=== PATIENT | female | born 1940 | race American Indian/Alaskan Native ===

== ENCOUNTER 2016-09-01 15:38 | Emergency (ER) | payer OTHER ==
--- NOTE | 2016-09-01 17:06 | Cat Scan Report ---
HEAD CT WITHOUT CONTRAST INDICATION: Neurologic deficits less than 6 hours or symptoms present upon awakening. 98N. COMPARISON: None similar at this institution. FINDINGS: Noncontrast head CT demonstrates age-appropriate ventricles and sulci, though with slightly asymmetric left frontal extra-axial CSF space prominence measuring up to 4 mm, axial image 25, series 2. Moderate periventricular white matter hypodensities. No acute or recent infarct, hemorrhage, mass effect or midline shift. 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 Right periorbital soft tissue swelling may be incompletely imaged, more so laterally. Otherwise normal imaged eye globes. Right more than left mild ethmoid sinusitis. Clear remainder imaged paranasal sinuses and mastoid air cells. Atherosclerotic internal carotid artery calcifications. Radiopaque maxillary dentures. Intact calvarium. Normal scalp soft tissues. CONCLUSION: 1. Right periorbital soft tissue swelling suspected without acute intracranial CT abnormality. 2. Age-appropriate atrophy, microvascular changes and minimal left frontal chronic subdural hygroma, as described. MRI is more sensitive for detection of acute infarct and may be useful for further evaluation in the setting of a focal neurologic deficit. I phoned the above results to Dr. Banuelos in the ER, 4:50 PM, 09/01/2016. Thank you for the opportunity to participate in this patient's care.
[2016-09-01 18:29] LABS: INR 2.53 (0.87-1.13)
[2016-09-01 18:30] LABS: Partial Thromboplastin Time 38.3 Sec. (24.2-36.6)
[2016-09-01 18:39] LABS: Anion Gap 18 mmol/L; BUN/Creatinine Ratio 17.77; Blood Urea Nitrogen 32 mg/dL (7-17); Calcium 8.8 mg/dL (8.4-10.2); Carbon Dioxide 27 mmol/L (22-30); Chloride 98.3 mmol/L (98-107); Glucose 98 mg/dL (65-100); Potassium 3.7 mmol/L (3.6-5.0); Sodium 140 mmol/L (137-145)
[2016-09-01 18:40] LABS: Basophils % (Auto) 0.8 % (0.0-1.8); Eosinophils % (Auto) 5.3 % (0.0-4.3); Hematocrit 35.9 % (30.3-42.9); Hemoglobin 11.4 gm/dl (10.1-14.3); Mean Corpuscular HGB Conc 32 % (30-34); Mean Corpuscular Hemoglobin 27 pg (28-32); Mean Corpuscular Volume 84 fl (79-97); Platelet Count 196 K/mm3 (140-440); Red Blood Count 4.26 M/mm3 (3.65-5.03); Red Cell Distribution Width 15.2 % (13.2-15.2); White Blood Count 4.1 K/mm3 (4.5-11.0)
--- NOTE | 2016-09-01 18:40 | Emergency Department Report ---
ED Fall HPI - General Chief Complaint: Fall Stated Complaint: RT EYE SWOLLEN Time Seen by Provider: 09/01/16 17:39 Source: patient Mode of arrival: Ambulatory Limitations: No Limitations - History of Present Illness Initial Comments: 76-year-old female with a past medical history of rheumatoid arthritis, GERD, hypertension, and currently on Coumadin for unknown reason presents to the hospital complains of injury to right infraorbital region after falling out of bed 2 nights ago. Patient states she had a bad dream, struck the right infraorbital area on the edge of her nightstand. Patient has had pain and swelling since. No complaints of eye pain, eye discharge, blurred vision, headache, or LOC. Patient admits to Coumadin use but does not know why she takes the medication and states she takes it to keep her blood thin. Pain is rated 4/10 in intensity, constant, worse with palpation - Related Data Previous Rx's Medication Instructions Recorded Last Taken Type NIFEdipine [Nifedipine ER] 60 mg PO DAILY #30 tab.er.24 09/01/16 Unknown Rx Allergies Allergy/AdvReac Type Severity Reaction Status Date / Time No Known Allergies Allergy Unverified 09/01/16 16:22 ED Review of Systems ROS: Stated complaint: RT EYE SWOLLEN Other details as noted in HPI Comment: All other systems reviewed and negative Other: Constitutional: No fevers chills Eyes: No eye pain visual changes ENT: No ear pain or throat pain Neck: Denies pain Respiratory: Denies cough wheezing shortness of breath Cardiovascular: Denies chest pain, palpitations, syncope GI: Denies abdominal pain, nausea, vomiting, diarrhea : Denies dysuriargency Musculoskeletal: Denies back pain Skin: Denies rash, lesions, erythema Neurologic: Denies headache, numbness, weakness Psychiatric: Denies suicidal ideation, hallucinations ED Past Medical Hx - Past Medical History Previous Medical History?: Yes Hx Hypertension: Yes Hx GERD: Yes Hx Arthritis: Yes (rheumatoid) - Surgical History Past Surgical History?: Yes Additional Surgical History: partial hysterectomy - Social History Smoking Status: Never Smoker Substance Use Type: Prescribed - Medications Home Medications: Home Medications Medication Instructions Recorded Confirmed Last Taken Type NIFEdipine [Nifedipine ER] 60 mg PO DAILY #30 tab.er.24 09/01/16 Unknown Rx ED Physical Exam - General Limitations: Physical Limitation - Other Other exam information: General: No limitations, patient is alert in no acute distress Head exam: Nontender scalp without signs of hematoma Eyes exam: Normal appearance, bruising and tenderness to right infraorbital region. Pupils equal and react to light, extraocular movements intact ENT: Moist mucous membrane, normal oropharynx Neck exam: Normal inspection, full range of motion, no meningismus nontender Respiratory exam: Clear to auscultation bilateral, no wheezes, rales, crackles Cardiovascular: Normal rate and rhythm, normal heart sounds Abdomen: Soft, nondistended, and nontender, with normal bowel sounds, no rebound, or guarding Extremity: Full range of motion normal inspection no deformity Back: Normal Inspection, full range of motion, no tenderness Neurologic: Alert, oriented x3, cranial nerves intact, no motor or sensory deficit Psychiatric: normal affect, normal mood Skin: Warm, dry, intact ED Course Vital Signs 09/01/16 16:22 Temperature 97.8 F Pulse Rate 67 Respiratory 20 Rate Blood Pressure 136/96 O2 Sat by Pulse 98 Oximetry ED Medical Decision Making - Lab Data Result diagrams: 09/01/16 17:58 09/01/16 17:58 Lab Results 09/01/16 09/01/16 09/01/16 Range/Units 17:58 17:58 17:58 WBC 4.1 L (4.5-11.0) K/mm3 RBC 4.26 (3.65-5.03) M/mm3 Hgb 11.4 (10.1-14.3) gm/dl Hct 35.9 (30.3-42.9) % MCV 84 (79-97) fl MCH 27 L (28-32) pg MCHC 32 (30-34) % RDW 15.2 (13.2-15.2) % Plt Count 196 (140-440) K/mm3 Lymph % (Auto) 27.2 (13.4-35.0) % Mcminn % (Auto) 14.8 H (0.0-7.3) % Eos % (Auto) 5.3 H (0.0-4.3) % Baso % (Auto) 0.8 (0.0-1.8) % Lymph # 1.1 L (1.2-5.4) K/mm3 Mcminn # 0.6 (0.0-0.8) K/mm3 Eos # 0.2 (0.0-0.4) K/mm3 Baso # 0.0 (0.0-0.1) K/mm3 Seg Neutrophils % 51.9 (40.0-70.0) % Seg Neutrophils # 2.1 (1.8-7.7) K/mm3 PT 27.4 H (12.2-14.9) Sec. INR 2.53 H (0.87-1.13) APTT 38.3 H (24.2-36.6) Sec. Thrombin Time (15.1-19.6) Sec. Sodium 140 (137-145) mmol/L Potassium 3.7 (3.6-5.0) mmol/L Chloride 98.3 (98-107) mmol/L Carbon Dioxide 27 (22-30) mmol/L Anion Gap 18 mmol/L BUN 32 H (7-17) mg/dL Creatinine 1.8 H (0.7-1.2) mg/dL Estimated GFR 27 ml/min BUN/Creatinine Ratio 17.77 % Glucose 98 (65-100) mg/dL Calcium 8.8 (8.4-10.2) mg/dL Troponin T < 0.010 (0.00-0.029) ng/mL 09/01/16 Range/Units 17:58 WBC (4.5-11.0) K/mm3 RBC (3.65-5.03) M/mm3 Hgb (10.1-14.3) gm/dl Hct (30.3-42.9) % MCV (79-97) fl MCH (28-32) pg MCHC (30-34) % RDW (13.2-15.2) % Plt Count (140-440) K/mm3 Lymph % (Auto) (13.4-35.0) % Mcminn % (Auto) (0.0-7.3) % Eos % (Auto) (0.0-4.3) % Baso % (Auto) (0.0-1.8) % Lymph # (1.2-5.4) K/mm3 Mcminn # (0.0-0.8) K/mm3 Eos # (0.0-0.4) K/mm3 Baso # (0.0-0.1) K/mm3 Seg Neutrophils % (40.0-70.0) % Seg Neutrophils # (1.8-7.7) K/mm3 PT (12.2-14.9) Sec. INR (0.87-1.13) APTT (24.2-36.6) Sec. Thrombin Time 18.4 (15.1-19.6) Sec. Sodium (137-145) mmol/L Potassium (3.6-5.0) mmol/L Chloride (98-107) mmol/L Carbon Dioxide (22-30) mmol/L Anion Gap mmol/L BUN (7-17) mg/dL Creatinine (0.7-1.2) mg/dL Estimated GFR ml/min BUN/Creatinine Ratio % Glucose (65-100) mg/dL Calcium (8.4-10.2) mg/dL Troponin T (0.00-0.029) ng/mL - Radiology Data Radiology results: report reviewed CT head: Right periorbital soft tissue swelling suspected without acute intracranial CT abnormalities. Minimal left chronic subdural hygroma CT facial bones: Subcutaneous soft tissue swelling overlying the right maxillary right cheek, and lateral right orbit. No fracture - Medical Decision Making Patient's INR is appropriate and not supratherapeutic. Patient has no signs of acute hemorrhage or fracture on CT. She will be discharged home with symptomatic treatment. Patient requesting a refill on her nifedipine ER 90 mg tablet since she currently lives in [place] but has been in [place] since April. - Differential Diagnosis fracture, contusion, intracranial hemorrhage, coagulopathy Critical Care Time: No Critical care attestation.: If time is entered above; I have spent that time in minutes in the direct care of this critically ill patient, excluding procedure time. ED Disposition Clinical Impression: Contusion of face, Medication refill, Anticoagulant long-term use, Renal insufficiency Disposition: DISCHARGED TO HOME OR SELFCARE Is pt being admited?: No Does the pt Need Aspirin: No Condition: Stable Instructions: Black Eye (ED), Impaired Kidney Function (ED), Warfarin (By mouth ) Additional Instructions: Take tylenol as needed for pain. Follow up with the doctor or clinic provided. Return if symptoms worsen. Prescriptions: NIFEdipine [Nifedipine ER] 60 mg PO DAILY #30 tab.er.24 Referrals: [facility] [Provider Group] - 3-5 Days CARLOS HUMPHREY MD [Staff Physician] - 3-5 Days PRIMARY CAREMD [Primary Care Provider] - 3-5 Days Time of Disposition: 19:20
--- NOTE | 2016-09-01 18:50 | Cat Scan Report ---
FINAL REPORT EXAM: CT FACIAL BONES WO CON HISTORY: right sided face injury TECHNIQUE: Standard unenhanced CT facial bones at 1.25 mm increments with coronal and sagittal reconstruction PRIORS: None. FINDINGS: There is subcutaneous soft tissue swelling over the right cheek, right maxilla, and lateral right orbit. No evidence for acute bony fracture is noted. Small amount of mucosal thickening in the inferior right maxillary sinus is noted. The frontal, ethmoid, left maxillary, and sphenoid sinuses are clear with no evidence for air-fluid levels or mucosal thickening. Nasal septum is midline. The bony orbits are intact. The orbital globes are normal. Extraocular muscles appear intact. The visualized mastoid air cells are also clear. IMPRESSION: Subcutaneous soft tissue swelling overlying the right maxilla, right cheek, and lateral right orbit. Otherwise, negative CT of the facial bones. No evidence for acute fracture.
[2016-09-01 20:02] VITALS: BP 132/88
== END 2016-09-01 19:35 | disposition home or self-care (01) ==
LOC: ED 15:38
DX: S05.11XA Contusion of eyeball and orbital tissues, right eye, initial encounter (principal); N28.9 Disorder of kidney and ureter, unspecified; I10 Essential (primary) hypertension; K21.9 Gastro-esophageal reflux disease without esophagitis; M06.9 Rheumatoid arthritis, unspecified; Z90.711 Acquired absence of uterus with remaining cervical stump; Z79.01 Long term (current) use of anticoagulants; W06.XXXA Fall from bed, initial encounter; Y93.89 Activity, other specified; Y99.8 Other external cause status; Y92.89 Other specified places as the place of occurrence of the external cause
CPT/HCPCS: 36415; 70450; 70486; 80048; 84484; 85025; 85610; 85670; 85730; 93005; 93010

== ENCOUNTER 2019-01-17 14:30 | Emergency (ER) | payer OTHER ==
--- NOTE | 2019-01-17 14:46 | Event Note ---
ED Screening Note ED Screening Note: stumbling, off balance confusion for the last 5 weeks chronic dizziness no CP, no vision changes, no numbness, no unilateral weakness This initial assessment/diagnostic orders/clinical plan/treatment(s) is/are subject to change based on patients health status, clinical progression and re- assessment by fellow clinical providers in the ED. Further treatment and workup at subsequent clinical providers discretion. Patient/guardian urged not to elope from the ED as their condition may be serious if not clinically assessed and managed. Initial orders include: labs, EKG, Ct head, UA
[2019-01-17 15:02] LABS: Basophils % (Auto) 1.1 % (0.0-1.8); Eosinophils # (Auto) 0.1 K/mm3 (0.0-0.4); Eosinophils % (Auto) 3.5 % (0.0-4.3); Hematocrit 31.7 % (30.3-42.9); Hemoglobin 10.7 gm/dl (10.1-14.3); Lymphocytes # (Auto) 1.2 K/mm3 (1.2-5.4); Lymphocytes % (Auto) 35.8 % (13.4-35.0); Mean Corpuscular HGB Conc 34 % (30-34); Mean Corpuscular Volume 85 fl (79-97); Monocytes # (Auto) 0.3 K/mm3 (0.0-0.8); Platelet Count 208 K/mm3 (140-440); Red Blood Count 3.73 M/mm3 (3.65-5.03); Red Cell Distribution Width 14.7 % (13.2-15.2)
[2019-01-17 15:28] LABS: Alanine Aminotransferase 8 units/L (7-56); BUN/Creatinine Ratio 17; Blood Urea Nitrogen 30 mg/dL (7-17); Calcium 9.4 mg/dL (8.4-10.2); Hemolysis Index 2
--- NOTE | 2019-01-17 17:08 | Emergency Department Report ---
ED General Adult HPI - General Chief complaint: Altered Mental Status Stated complaint: CONFUSION Time Seen by Provider: 01/17/19 14:42 Source: patient, family Mode of arrival: Wheelchair Limitations: No Limitations - History of Present Illness Initial comments: Patient presents to the emergency department with 2 chief complaints. Patient complains of right flank and right lower quadrant abdominal pain that radiates into her right leg for the last 5-6 weeks. Patient states walking makes her abdominal pain worse and is relieved by sitting still. Patient also complains of dizziness that has persistently gotten worse since leaving the [place] 5 weeks ago. Patient has a history of vertigo and states today her dizziness has been improved by meclizine which was given to her by her daughters physician -: Gradual Location: abdomen Radiation: extremity Severity scale (0 -10): 5 Quality: aching Consistency: intermittent Improves with: none Worsens with: none Associated Symptoms: denies other symptoms Treatments Prior to Arrival: none - Related Data Previous Rx's Medication Instructions Recorded Last Taken Type NIFEdipine [Nifedipine ER] 60 mg PO DAILY #30 tab.er.24 09/01/16 Unknown Rx Meclizine [Antivert] 25 mg PO TID PRN #30 tablet 01/17/19 Unknown Rx traMADol [Ultram] 50 mg PO Q6HR PRN #20 tablet 01/17/19 Unknown Rx Allergies Allergy/AdvReac Type Severity Reaction Status Date / Time No Known Allergies Allergy Unverified 09/01/16 16:22 ED Review of Systems ROS: Stated complaint: CONFUSION Other details as noted in HPI Comment: All other systems reviewed and negative Constitutional: denies: chills, fever Eyes: denies: eye pain, eye discharge, vision change ENT: denies: ear pain, throat pain Respiratory: denies: cough, shortness of breath, wheezing Cardiovascular: denies: chest pain, palpitations Endocrine: no symptoms reported Gastrointestinal: abdominal pain. denies: nausea, diarrhea Genitourinary: denies: urgency, dysuria, discharge Musculoskeletal: denies: back pain, joint swelling, arthralgia Skin: denies: rash, lesions Neurological: vertigo. denies: headache, weakness, paresthesias Psychiatric: denies: anxiety, depression Hematological/Lymphatic: denies: easy bleeding, easy bruising ED Past Medical Hx - Past Medical History Previous Medical History?: Yes Hx Hypertension: Yes Hx GERD: Yes Hx Arthritis: Yes (rheumatoid) - Surgical History Past Surgical History?: Yes Additional Surgical History: partial hysterectomy - Social History Smoking Status: Never Smoker Substance Use Type: None - Medications Home Medications: Home Medications Medication Instructions Recorded Confirmed Last Taken Type NIFEdipine [Nifedipine ER] 60 mg PO DAILY #30 tab.er.24 09/01/16 Unknown Rx Meclizine [Antivert] 25 mg PO TID PRN #30 tablet 01/17/19 Unknown Rx traMADol [Ultram] 50 mg PO Q6HR PRN #20 tablet 01/17/19 Unknown Rx ED Physical Exam - General Limitations: No Limitations General appearance: alert, in no apparent distress - Head Head exam: Present: atraumatic, normocephalic - Eye Eye exam: Present: normal appearance, PERRL, EOMI - ENT ENT exam: Present: mucous membranes moist - Neck Neck exam: Present: normal inspection - Respiratory Respiratory exam: Present: normal lung sounds bilaterally. Absent: respiratory distress - Cardiovascular Cardiovascular Exam: Present: regular rate, normal rhythm. Absent: systolic murmur, diastolic murmur, rubs, gallop - GI/Abdominal GI/Abdominal exam: Present: soft, tenderness (tenderness to palpation right lower quadrant), normal bowel sounds. Absent: distended - Extremities Exam Extremities exam: Present: normal inspection - Back Exam Back exam: Present: normal inspection - Neurological Exam Neurological exam: Present: alert, oriented X3, CN II-XII intact, other (able to re-create symptoms of rapid head and eye movement). Absent: motor sensory deficit - Psychiatric Psychiatric exam: Present: normal affect, normal mood - Skin Skin exam: Present: warm, dry, intact, normal color. Absent: rash ED Course Vital Signs 01/17/19 01/17/19 01/17/19 14:36 16:00 17:00 Temperature 98.5 F Pulse Rate 83 57 L 57 L Respiratory 16 19 19 Rate Blood Pressure Blood Pressure 128/82 146/77 132/84 [Left] O2 Sat by Pulse 100 97 97 Oximetry 01/17/19 01/17/19 18:00 19:15 Temperature 97.9 F Pulse Rate 62 Respiratory 18 Rate Blood Pressure 132/84 Blood Pressure 133/73 [Left] O2 Sat by Pulse 100 100 Oximetry ED Medical Decision Making - Lab Data Result diagrams: 01/17/19 14:48 01/17/19 14:48 Lab Results 01/17/19 01/17/19 01/17/19 Range/Units 14:48 14:48 14:50 WBC 3.4 L (4.5-11.0) K/mm3 RBC 3.73 (3.65-5.03) M/mm3 Hgb 10.7 (10.1-14.3) gm/dl Hct 31.7 (30.3-42.9) % MCV 85 (79-97) fl MCH 29 (28-32) pg MCHC 34 (30-34) % RDW 14.7 (13.2-15.2) % Plt Count 208 (140-440) K/mm3 Lymph % (Auto) 35.8 H (13.4-35.0) % Giles % (Auto) 9.0 H (0.0-7.3) % Eos % (Auto) 3.5 (0.0-4.3) % Baso % (Auto) 1.1 (0.0-1.8) % Lymph # 1.2 (1.2-5.4) K/mm3 Giles # 0.3 (0.0-0.8) K/mm3 Eos # 0.1 (0.0-0.4) K/mm3 Baso # 0.0 (0.0-0.1) K/mm3 Seg Neutrophils % 50.6 (40.0-70.0) % Seg Neutrophils # 1.7 L (1.8-7.7) K/mm3 Sodium 140 (137-145) mmol/L Potassium 3.8 (3.6-5.0) mmol/L Chloride 103.4 (98-107) mmol/L Carbon Dioxide 25 (22-30) mmol/L Anion Gap 15 mmol/L BUN 30 H (7-17) mg/dL Creatinine 1.8 H (0.7-1.2) mg/dL Estimated GFR 33 ml/min BUN/Creatinine Ratio 17 % Glucose 133 H (65-100) mg/dL POC Glucose 144 H (70-105) Calcium 9.4 (8.4-10.2) mg/dL Phosphorus 3.00 (2.5-4.5) mg/dL Magnesium 1.90 (1.7-2.3) mg/dL Total Bilirubin 0.40 (0.1-1.2) mg/dL AST 12 (5-40) units/L ALT 8 (7-56) units/L Alkaline Phosphatase 51 (35-129) units/L Troponin T < 0.010 (0.00-0.029) ng/mL Total Protein 7.1 (6.3-8.2) g/dL Albumin 4.0 (3.9-5) g/dL Albumin/Globulin Ratio 1.3 % Urine Color (Yellow) Urine Turbidity (Clear) Urine pH (5.0-7.0) Ur Specific Hindman (1.003-1.030) Urine Protein (Negative) mg/dL Urine Glucose (UA) (Negative) mg/dL Urine Ketones (Negative) mg/dL Urine Blood (Negative) Urine Nitrite (Negative) Urine Bilirubin (Negative) Urine Urobilinogen (<2.0) mg/dL Ur Leukocyte Esterase (Negative) Urine WBC (Auto) (0.0-6.0) /HPF Urine RBC (Auto) (0.0-6.0) /HPF U Epithel Cells (Auto) (0-13.0) /HPF Urine Mucus /HPF 01/17/19 01/17/19 Range/Units 16:03 19:15 WBC (4.5-11.0) K/mm3 RBC (3.65-5.03) M/mm3 Hgb (10.1-14.3) gm/dl Hct (30.3-42.9) % MCV (79-97) fl MCH (28-32) pg MCHC (30-34) % RDW (13.2-15.2) % Plt Count (140-440) K/mm3 Lymph % (Auto) (13.4-35.0) % Giles % (Auto) (0.0-7.3) % Eos % (Auto) (0.0-4.3) % Baso % (Auto) (0.0-1.8) % Lymph # (1.2-5.4) K/mm3 Giles # (0.0-0.8) K/mm3 Eos # (0.0-0.4) K/mm3 Baso # (0.0-0.1) K/mm3 Seg Neutrophils % (40.0-70.0) % Seg Neutrophils # (1.8-7.7) K/mm3 Sodium (137-145) mmol/L Potassium (3.6-5.0) mmol/L Chloride (98-107) mmol/L Carbon Dioxide (22-30) mmol/L Anion Gap mmol/L BUN (7-17) mg/dL Creatinine (0.7-1.2) mg/dL Estimated GFR ml/min BUN/Creatinine Ratio % Glucose (65-100) mg/dL POC Glucose 108 H (70-105) Calcium (8.4-10.2) mg/dL Phosphorus (2.5-4.5) mg/dL Magnesium (1.7-2.3) mg/dL Total Bilirubin (0.1-1.2) mg/dL AST (5-40) units/L ALT (7-56) units/L Alkaline Phosphatase (35-129) units/L Troponin T (0.00-0.029) ng/mL Total Protein (6.3-8.2) g/dL Albumin (3.9-5) g/dL Albumin/Globulin Ratio % Urine Color Yellow (Yellow) Urine Turbidity Clear (Clear) Urine pH 5.0 (5.0-7.0) Ur Specific Hindman 1.016 (1.003-1.030) Urine Protein <15 mg/dl (Negative) mg/dL Urine Glucose (UA) Neg (Negative) mg/dL Urine Ketones Neg (Negative) mg/dL Urine Blood Neg (Negative) Urine Nitrite Neg (Negative) Urine Bilirubin Neg (Negative) Urine Urobilinogen < 2.0 (<2.0) mg/dL Ur Leukocyte Esterase Neg (Negative) Urine WBC (Auto) < 1.0 (0.0-6.0) /HPF Urine RBC (Auto) 2.0 (0.0-6.0) /HPF U Epithel Cells (Auto) 1.0 (0-13.0) /HPF Urine Mucus Few /HPF - Radiology Data Radiology results: report reviewed - Medical Decision Making Discussed results with patient especially findings of CT of abdomen and need for follow up Critical care attestation.: If time is entered above; I have spent that time in minutes in the direct care of this critically ill patient, excluding procedure time. ED Disposition Clinical Impression: Abdominal pain, Vertigo Disposition: DC- TO HOME OR SELFCARE Is pt being admited?: No Does the pt Need Aspirin: No Condition: Stable Instructions: Abdominal Pain (ED), Vertigo (ED) Additional Instructions: return if worse Time of Disposition: 20:49
--- NOTE | 2019-01-17 17:18 | Cat Scan Report ---
CT HEAD WITHOUT CONTRAST INDICATION / CLINICAL INFORMATION: AMS. TECHNIQUE: All CT scans at this location are performed using CT dose reduction for ALARA by means of automated e xposure control. COMPARISON: Head CT 09/01/2016 FINDINGS: HEMORRHAGE: No evidence of intracranial hemorrhage or extra-axial fluid collection. EXTRA-AXIAL SPACES: Cortical sulci and sylvian fissures are enlarged reflecting a degree of parenchym al volume loss which is within normal limits for the patient's age. Basilar cisterns have an unremark able appearance. VENTRICULAR SYSTEM: The third and lateral ventricles are enlarged reflecting resonance of age related parenchymal volume loss. CEREBRAL PARENCHYMA: Periventricular and deep white matter lucency is observed. This is probably seco ndary to microvascular ischemic change. There is no indication of recent infarction. Findings suggest the presence of remote small deep infarctions in the gangliocapsular regions bilaterally. Similar fi ndings were present on prior study. MIDLINE SHIFT OR HERNIATION: There is no mass effect. CEREBELLUM / BRAINSTEM: Brainstem has an unremarkable appearance. There is evidence of remote left ce rebellar infarction unchanged from prior study. INTRACRANIAL VESSELS:Calcified atherosclerotic plaque is present along the course of the cavernous se gments of both internal carotid arteries. Similar findings are seen at the distal vertebral arteries. ORBITS: The orbits have an unremarkable appearance. SOFT TISSUES of HEAD: No significant abnormality. CALVARIUM: Evaluation of bone windows reveals no abnormalities. PARANASAL SINUSES / MASTOID AIR CELLS: Paranasal sinuses are free from inflammatory mucosal disease. Mastoid air cells are normally pneumatized. ADDITIONAL FINDINGS: None. IMPRESSION: 1. Age-related involutional changes of parenchymal volume loss and microvascular ischemia. 2. Remote left cerebellar infarction. 3. No acute intracranial abnormality. No interval change in comparison to previous study. Signer Name: Aron Cobian MD Signed: 01/17/2019 5:14 PM Workstation Name: [email or web address]
--- NOTE | 2019-01-17 18:48 | Cat Scan Report ---
CT abdomen pelvis wo con INDICATION: abdominal pain. TECHNIQUE: All CT scans at this location are performed using the following dose modulation technique: Automated exposure control. CONTRAST: None. COMPARISON: None available. CT abdomen: Evaluation of the parenchymal organs demonstrates a benign-appearing right renal cyst flory suring 2 cm. Bilateral adrenal nodules measure 1.4 cm on the left (series 2, image 45) and 9 mm (seri es 2, image 51) on the right. A hyperdense lesion at the anterior aspect of the left kidney adjacent to the hilum (series 2, image 56) measures 8.5 mm. The remaining parenchymal organs are unremarkable. A hiatal hernia is small. Negative for abdominal mass, fluid collection or inflammation. The bowel is not dilated or thickened. The aorta contains mild atherosclerotic calcification. CT PELVIS: The appendix is normal. Negative for pelvic mass, fluid or inflammation. Noninflamed sigmo id diverticula are present. Status post previous hysterectomy. IMPRESSION: 1. Negative for obstruction or localized inflammation. 2. Small bilateral adrenal nodules do not meet imaging criteria for benign adenoma, but are statistic ally incidental in the absence of known malignancy. 3. Indeterminate high density lesion left kidney. This may represent a small hemorrhagic cyst. Multip hase CT could be performed as clinically indicated. Signer Name: Florencio Sterling MD Signed: 01/17/2019 6:43 PM Workstation Name: [id number]
[2019-01-17 20:06] LABS: Bilirubin,Urine NEG (Negative); Blood,Urine NEG (Negative); Color,Urine Yellow (Yellow); Mucus,Urine FEW /HPF; Protein,Urine <15 mg/dL mg/dL (Negative); Urobilinogen,Urine < 2.0 mg/dL (<2.0); WBC,Urine < 1.0 /HPF (0.0-6.0)
[2019-01-17 20:19] VITALS: BP 133/73
== END 2019-01-17 21:00 | disposition home or self-care (01) ==
LOC: ED 14:30
DX: R10.31 Right lower quadrant pain (principal); R42 Dizziness and giddiness; I10 Essential (primary) hypertension; K21.9 Gastro-esophageal reflux disease without esophagitis; M06.9 Rheumatoid arthritis, unspecified; Z90.710 Acquired absence of both cervix and uterus; Z79.899 Other long term (current) drug therapy
CPT/HCPCS: 36415; 70450; 74176; 80053; 81001; 82962; 83735; 84100; 84484; 85025; 93005; 93010

== ENCOUNTER 2021-07-04 11:45 | Observation (INO) | payer MEDICARE, OTHER ==
--- NOTE | 2021-07-04 12:36 | XRay Report ---
CHEST 1 VIEW 07/04/2021 12:11 PM INDICATION / CLINICAL INFORMATION: CHEST PAIN. COMPARISON: None available. FINDINGS: SUPPORT DEVICES: None. HEART / MEDIASTINUM: Moderate cardiac enlargement. LUNGS / PLEURA: No significant pulmonary or pleural abnormality. No pneumothorax. ADDITIONAL FINDINGS: No significant additional findings. IMPRESSION: No acute abnormality. Signer Name: Florencio Sterling MD Signed: 07/04/2021 12:32 PM Workstation Name: [id number]
[2021-07-04 13:14] LABS: Albumin 4.3 g/dL (3.9-5); Basophils % (Auto) 1.3 % (0.0-1.8); Calcium 9.6 mg/dL (8.4-10.2); Eosinophils # (Auto) 0.1 K/mm3 (0.0-0.4); Eosinophils % (Auto) 1.4 % (0.0-4.3); Hematocrit 36.5 % (30.3-42.9); Hemoglobin 11.6 gm/dl (10.1-14.3); Lymphocytes # (Auto) 1.2 K/mm3 (1.2-5.4); Lymphocytes % (Auto) 32.8 % (13.4-35.0); Mean Corpuscular HGB Conc 32 % (30-34); Mean Corpuscular Volume 86 fl (79-97); Monocytes # (Auto) 0.3 K/mm3 (0.0-0.8); Monocytes % (Auto) 8.6 % (0.0-7.3); Platelet Count 197 K/mm3 (140-440); Red Blood Count 4.24 M/mm3 (3.65-5.03); Red Cell Distribution Width 15.2 % (13.2-15.2)
[2021-07-04 13:26] LABS: INR 2.4 (0.87-1.13); Partial Thromboplastin Time 37.1 Sec. (24.2-36.6)
--- NOTE | 2021-07-04 13:34 | Emergency Department Report ---
ED Chest Pain HPI - General Chief Complaint: Chest Pain Stated Complaint: CHEST PAIN Time Seen by Provider: 07/04/21 12:06 Source: patient, EMS Mode of arrival: Stretcher Limitations: No Limitations - History of Present Illness Initial Comments: 81-year-old female the past medical history rheumatoid arthritis, GERD, hypertension also currently on Coumadin for unknown reason presents to the hospital complaining of chest pain intermittent x1 week. Pain is in the center of the chest and radiates to the left and right shoulder down the left arm. Worse with palpation and movement. Mild shortness of breath noted. She denies nausea or vomiting. Patient is currently lives in [place] and is here visiting to take care of her sick daughter who recently had brain tumor surgery. Although patient is alert and oriented x3 she has a poor memory and cannot recall why she is on Coumadin, cannot recall her recent cardiac work-up, cannot recall that she is actually been to this ED in the past. Severity scale (0 -10): 5 - Related Data Previous Rx's Medication Instructions Recorded Last Taken Type NIFEdipine [Nifedipine ER] 60 mg PO DAILY #30 tab.er.24 09/01/16 Unknown Rx Meclizine [Antivert] 25 mg PO TID PRN #30 tablet 01/17/19 Unknown Rx traMADoL [Ultram] 50 mg PO Q6HR PRN #20 tablet 01/17/19 Unknown Rx Allergies Allergy/AdvReac Type Severity Reaction Status Date / Time No Known Allergies Allergy Unverified 09/01/16 16:22 Heart Score - HEART Score History: Slightly suspicious EKG: Non-specific Age: > 65 Risk factors: 1-2 risk factors Troponin: < normal limit HEART Score: 4 - EKG Read Time Time EKG Completed: 11:56 EKG Read Time: 12:01 ED Review of Systems ROS: Stated complaint: CHEST PAIN Other details as noted in HPI Comment: All other systems reviewed and negative ED Past Medical Hx - Past Medical History Hx Hypertension: Yes Hx GERD: Yes Hx Arthritis: Yes (rheumatoid) - Surgical History Additional Surgical History: partial hysterectomy - Social History Smoking Status: Unknown if ever smoked - Medications Home Medications: Home Medications Medication Instructions Recorded Confirmed Last Taken Type NIFEdipine [Nifedipine ER] 60 mg PO DAILY #30 tab.er.24 09/01/16 Unknown Rx Meclizine [Antivert] 25 mg PO TID PRN #30 tablet 01/17/19 Unknown Rx traMADoL [Ultram] 50 mg PO Q6HR PRN #20 tablet 01/17/19 Unknown Rx ED Physical Exam - General Limitations: No Limitations - Other Other exam information: General: No acute distress Head: Atraumatic Eyes: normal appearance ENT: Moist mucous membranes Neck: Normal appearance, no midline tenderness Chest: Clear to auscultation bilaterally, chest wall tenderness on palpation CV: Regular rhythm Abdomen: Soft, normal bowel sounds, nontender, nondistended, no rebound or guarding Back: Normal inspection Extremity: Normal inspection, full range of motion, no calf tenderness or leg edema Neuro: Alert O x 3, no facial asymmetry, speech clear, no gross motor sensory deficit Psych: Appropriate behavior Skin: No rash ED Course Vital Signs 07/04/21 07/04/21 11:58 12:01 Temperature 98.6 F Pulse Rate 74 Respiratory 18 18 Rate Blood Pressure 124/74 [Left] O2 Sat by Pulse 98 100 Oximetry MARLIN score - Marlin Score Age > 65: (1) Yes Aspirin use within the Past 7 Days: (0) No 3 or more CAD Risk Factors: (0) No 2 or more Angina events in past 24 hrs: (1) Yes Known CAD with more than 50% Stenosis: (0) No Elevated Cardiac Markers: (0) No ST Deviation Greater than 0.5mm: (0) No MARLIN Score: 2 ED Medical Decision Making - Lab Data Result diagrams: 07/04/21 12:31 07/04/21 12:31 Lab Results 07/04/21 07/04/21 07/04/21 Range/Units 12:31 12:31 12:31 WBC 3.8 L (4.5-11.0) K/mm3 RBC 4.24 (3.65-5.03) M/mm3 Hgb 11.6 (10.1-14.3) gm/dl Hct 36.5 (30.3-42.9) % MCV 86 (79-97) fl MCH 27 L (28-32) pg MCHC 32 (30-34) % RDW 15.2 (13.2-15.2) % Plt Count 197 (140-440) K/mm3 Lymph % (Auto) 32.8 (13.4-35.0) % [place] % (Auto) 8.6 H (0.0-7.3) % Eos % (Auto) 1.4 (0.0-4.3) % Baso % (Auto) 1.3 (0.0-1.8) % Lymph # (Auto) 1.2 (1.2-5.4) K/mm3 [place] # (Auto) 0.3 (0.0-0.8) K/mm3 Eos # (Auto) 0.1 (0.0-0.4) K/mm3 Baso # (Auto) 0.0 (0.0-0.1) K/mm3 Seg Neutrophils % 55.9 (40.0-70.0) % Seg Neutrophils # 2.1 (1.8-7.7) K/mm3 PT 28.2 H (12.2-14.9) Sec. INR 2.40 H (0.87-1.13) APTT 37.1 H (24.2-36.6) Sec. Sodium 140 (137-145) mmol/L Potassium 3.6 (3.6-5.0) mmol/L Chloride 104.0 (98-107) mmol/L Carbon Dioxide 21 L (22-30) mmol/L Anion Gap 19 mmol/L BUN 38 H (7-17) mg/dL Creatinine 2.6 H (0.6-1.2) mg/dL Estimated GFR 21 ml/min BUN/Creatinine Ratio 15 % Glucose 101 H (65-100) mg/dL Calcium 9.6 (8.4-10.2) mg/dL Total Bilirubin 0.30 (0.1-1.2) mg/dL AST 21 (5-40) units/L ALT 14 (7-56) units/L Alkaline Phosphatase 48 (35-129) units/L Total Creatine Kinase 219 H (30-135) units/L CK-MB (CK-2) 3.0 (0.0-4.0) ng/mL CK-MB (CK-2) Rel Index 1.3 (0-4) Troponin T 0.012 (0.00-0.029) ng/mL NT-Pro-B Natriuret Pep 6200 H (0-900) pg/mL Total Protein 6.9 (6.3-8.2) g/dL Albumin 4.3 (3.9-5) g/dL Albumin/Globulin Ratio 1.7 % - EKG Data -: EKG Interpreted by Me (atrial fibrilation) EKG shows normal: intervals (qtc 400), QRS complexes (qrsd 91), ST-T waves (no steim) - EKG Data When compared to previous EKG there are: changes noted - Radiology Data Radiology results: report reviewed CHEST 1 VIEW 07/04/2021 12:11 PM INDICATION / CLINICAL INFORMATION: CHEST PAIN. COMPARISON: None available. FINDINGS: SUPPORT DEVICES: None. HEART / MEDIASTINUM: Moderate cardiac enlargement. LUNGS / PLEURA: No significant pulmonary or pleural abnormality. No pneumothorax. ADDITIONAL FINDINGS: No significant additional findings. IMPRESSION: No acute abnormality - Medical Decision Making 81yo female presents to the hospital complaints of chest pain. KG shows atrial fibrillation with suspected history given the fact that patient is on Coumadin however, patient cannot confirm her history of atrial fibrillation. Recent cardiac work-up unknown however, possible recent cardiac cath as per patient. Chest wall tenderness on examination her however, given patient's age and risk factors she will be admitted for cardiac work-up and evaluation. Patient is therapeutic on Coumadin. She declined offer for pain medication Critical Care Time: No Critical care attestation.: If time is entered above; I have spent that time in minutes in the direct care of this critically ill patient, excluding procedure time. ED Disposition Clinical Impression: Chest pain, Atrial fibrillation, Anticoagulated on Coumadin, Renal insufficiency Disposition: ADMITTED INPATIENT Is pt being admited?: Yes Condition: Stable Referrals: PRIMARY CARE, [Primary Care Provider] - 3-5 Days Time of Disposition: 13:32 (Dr Kolb/hosp)
[2021-07-04 15:51] LABS: Free T4 (Free Thyroxine) 1.1 ng/dL (0.76-1.46)
[2021-07-04] MEDS ORDERED: MECLIZINE 25 MG TAB PO PRN (17:22)
[2021-07-04] MEDS ORDERED: ONDANSETRON 4 MG/2 ML INJ IV PRN (17:23)
[2021-07-04] MEDS ORDERED: ACETAMINOPHEN 325 MG TAB PO PRN (17:23)
[2021-07-04] MEDS ORDERED: traMADol 50 MG TAB PO PRN (17:31)
[2021-07-04] MEDS ORDERED: oxyCODONE /ACETAMINOPHEN 5-325MG TAB PO PRN (17:52)
[2021-07-04] MEDS ORDERED: SODIUM CHLORIDE 0.9% 1000 ML 1,000 ML IV SCH (18:00)
--- NOTE | 2021-07-04 18:09 | History and Physical Report ---
History of Present Illness Date of examination: 07/04/21 Date of admission: 07/04/2021 Chief complaint: Chest pain for 1 day History of present illness: 81-year-old female with past medical history of rheumatoid arthritis, GERD, hyper calcium to the hospital for intermittent chest pain for 1 week. Chest pain radiates to the left arm and also right shoulder. Worse with palpation and movement. Mild shortness of breath. No diaphoresis no palpitations no shortness of breath. Patient currently lives in [place] and is visiting type take care of her sick daughter who recently had brain tumor removed. Patient is alert and oriented x3. Cannot recall why she is on Coumadin. No local physicians. Heart Score - HEART Score History: Slightly suspicious EKG: Non-specific Age: > 65 Risk factors: 1-2 risk factors Troponin: < normal limit HEART Score: 4 - EKG Read Time Time EKG Completed: 11:56 EKG Read Time: 12:01 - Past Medical History --Hypertension: Yes --GERD: Yes --Arthritis: Yes (rheumatoid) - Surgical History --Additional Surgical History: partial hysterectomy - Social History --Smoking Status: Unknown if ever smoked - Medications Home Medications: Home Medications Medication Instructions Recorded Confirmed Last Taken Type NIFEdipine [Nifedipine ER] 60 mg PO DAILY #30 tab.er.24 09/01/16 Unknown Rx Meclizine [Antivert] 25 mg PO TID PRN #30 tablet 01/17/19 Unknown Rx traMADoL [Ultram] 50 mg PO Q6HR PRN #20 tablet 01/17/19 Unknown Rx Review of Systems ROS: Constitutional no weight loss or weight gain no fever or chills HEENT no sore throat no post nasal drip no diplopia Neck no neck stiffness no lymph gland enlargement Chest and lungs no shortness of breath cough or wheezing CVS chest pain for 1 week GI no nausea no vomiting no diarrhea Genitourinary system no dysuria no flank pain Musculoskeletal system no muscle pains no joint pains [employer] no syncope no seizures Skin no rash no itching Psychiatric no depression no homicidal or suicidal tendencies Hematologic no lymphedema or bruising Endocrine no polydipsia no polyuria no cold intolerance no heat intolerance Medications and Allergies Allergies Allergy/AdvReac Type Severity Reaction Status Date / Time No Known Allergies Allergy Unverified 09/01/16 16:22 Home Medications Medication Instructions Recorded Confirmed Last Taken Type NIFEdipine [Nifedipine ER] 60 mg PO DAILY #30 tab.er.24 09/01/16 07/04/21 Unknown Rx Meclizine [Antivert] 25 mg PO TID PRN #30 tablet 01/17/19 07/04/21 Unknown Rx traMADoL [Ultram] 50 mg PO Q6HR PRN #20 tablet 01/17/19 07/04/21 Unknown Rx Exam - Constitutional Vitals: Temp Pulse Resp BP Pulse Ox 98.6 F 81 18 121/75 99 07/04/21 11:58 07/04/21 14:10 07/04/21 14:10 07/04/21 14:10 07/04/21 14:10 General appearance: Present: no acute distress, well-nourished - EENT Eyes: Present: PERRL ENT: hearing intact, clear oral mucosa - Neck Neck: Present: supple, normal ROM - Respiratory Respiratory effort: normal Respiratory: bilateral: CTA - Cardiovascular Heart rate: 78 Heart Sounds: Present: S1 & S2. Absent: rub, click - Extremities Extremities: pulses symmetrical, No edema Peripheral Pulses: within normal limits - Abdominal General gastrointestinal: Present: soft, non-tender, non-distended, normal bowel sounds Female genitourinary: Present: normal - Integumentary Integumentary: Present: clear, warm, dry - Musculoskeletal Musculoskeletal: gait normal, strength equal bilaterally - Psychiatric Psychiatric: appropriate mood/affect, intact judgment & insight - Neurologic Neurologic: CNII-XII intact, moves all extremities HEART Score - HEART Score EKG: Non-specific Age: > 65 Risk factors: 1-2 risk factors Troponin: Troponin T < 0.010 ng/mL (0.00-0.029) 07/04/21 14:29 Troponin: < normal limit Results - Labs CBC & Chem 7: 07/05/21 05:22 07/05/21 05:22 Labs: Laboratory Last Values WBC 3.8 K/mm3 (4.5-11.0) L 07/04/21 12:31 RBC 4.24 M/mm3 (3.65-5.03) 07/04/21 12:31 Hgb 11.6 gm/dl (10.1-14.3) 07/04/21 12:31 Hct 36.5 % (30.3-42.9) 07/04/21 12:31 MCV 86 fl (79-97) 07/04/21 12:31 MCH 27 pg (28-32) L 07/04/21 12:31 MCHC 32 % (30-34) 07/04/21 12:31 RDW 15.2 % (13.2-15.2) 07/04/21 12:31 Plt Count 197 K/mm3 (140-440) 07/04/21 12:31 Lymph % (Auto) 32.8 % (13.4-35.0) 07/04/21 12:31 [place] % (Auto) 8.6 % (0.0-7.3) H 07/04/21 12:31 Eos % (Auto) 1.4 % (0.0-4.3) 07/04/21 12:31 Baso % (Auto) 1.3 % (0.0-1.8) 07/04/21 12:31 Lymph # (Auto) 1.2 K/mm3 (1.2-5.4) 07/04/21 12:31 [place] # (Auto) 0.3 K/mm3 (0.0-0.8) 07/04/21 12:31 Eos # (Auto) 0.1 K/mm3 (0.0-0.4) 07/04/21 12:31 Baso # (Auto) 0.0 K/mm3 (0.0-0.1) 07/04/21 12:31 Seg Neutrophils % 55.9 % (40.0-70.0) 07/04/21 12: Seg Neutrophils # 2.1 K/mm3 (1.8-7.7) 07/04/21 12:31 PT 28.2 Sec. (12.2-14.9) H 07/04/21 12:31 INR 2.40 (0.87-1.13) H 07/04/21 12:31 APTT 37.1 Sec. (24.2-36.6) H 07/04/21 12:31 Sodium 140 mmol/L (137-145) 07/04/21 12:31 Potassium 3.6 mmol/L (3.6-5.0) 07/04/21 12:31 Chloride 104.0 mmol/L (98-107) 07/04/21 12:31 Carbon Dioxide 21 mmol/L (22-30) L 07/04/21 12:31 Anion Gap 19 mmol/L 07/04/21 12:31 BUN 38 mg/dL (7-17) H 07/04/21 12:31 Creatinine 2.6 mg/dL (0.6-1.2) H 07/04/21 12:31 Estimated GFR 21 ml/min 07/04/21 12:31 BUN/Creatinine Ratio 15 % 07/04/21 12:31 Glucose 101 mg/dL (65-100) H 07/04/21 12:31 Calcium 9.6 mg/dL (8.4-10.2) 07/04/21 12:31 Magnesium 1.60 mg/dL (1.7-2.3) L 07/04/21 12:32 Total Bilirubin 0.30 mg/dL (0.1-1.2) 07/04/21 12:31 AST 21 units/L (5-40) 07/04/21 12:31 ALT 14 units/L (7-56) 07/04/21 12:31 Alkaline Phosphatase 48 units/L (35-129) 07/04/21 12:31 Total Creatine Kinase 219 units/L (30-135) H 07/04/21 12:31 CK-MB (CK-2) 3.0 ng/mL (0.0-4.0) 07/04/21 12:31 CK-MB (CK-2) Rel Index 1.3 (0-4) 07/04/21 12:31 Troponin T < 0.010 ng/mL (0.00-0.029) 07/04/21 14:29 NT-Pro-B Natriuret Pep 6200 pg/mL (0-900) H 07/04/21 12:31 Total Protein 6.9 g/dL (6.3-8.2) 07/04/21 12:31 Albumin 4.3 g/dL (3.9-5) 07/04/21 12:31 Albumin/Globulin Ratio 1.7 % 07/04/21 12:31 TSH 0.807 mlU/mL (0.270-4.200) 07/04/21 14:29 Free T4 1.10 ng/dL (0.76-1.46) 07/04/21 14:29 - Imaging and Cardiology EKG: report reviewed (Atrial fibrillation) Assessment and Plan Advance Directives: Yes (Full code) VTE prophylaxis?: Chemical Plan of care discussed with patient/family: Yes - Patient Problems (1) Acute coronary syndrome Current Visit: Yes Status: Acute Plan to address problem: Serial troponins If negative probable discharge tomorrow Stress test as outpatient with cardiology-[facility] who is on- call (2) Elevated brain natriuretic peptide (BNP) level Current Visit: Yes Status: Acute Plan to address problem: BNP 6200 We will get echocardiogram for ejection fraction and valve function [facility] consulted for echocardiogram (3) Hypertension Current Visit: Yes Status: Chronic Qualifiers: Hypertension type: primary hypertension Qualified Code(s): I10 - Essential (primary) hypertension Plan to address problem: Continue nifedipine and adjust medications (4) Chronic a-fib Current Visit: Yes Status: Chronic Plan to address problem: On Coumadin--INR slightly supratherapeutic at 2.4 (5) DVT prophylaxis Current Visit: Yes Status: Acute Plan to address problem: Anticoagulation GI prophylaxis (6) Advance care planning Current Visit: Yes Status: Acute Plan to address problem: Disease education conducted, care plan discussed, diagnosis discussed, prognosis discussed. Patient is full code. Patient acknowledges understanding and agreement with care plan. +30 minutes.
[2021-07-04] MEDS: NIFEdipine XL 60 MG TAB PO SCH (18:44)
[2021-07-04] MEDS: HEPARIN 5,000 UNIT/1 ML VIAL SUB-Q SCH (22:40)
[2021-07-04] MEDS: FAMOTIDINE 20 MG/2 ML INJ IV SCH (22:40)
[2021-07-05 06:19] LABS: Basophils % (Auto) 0.9 % (0.0-1.8); Eosinophils # (Auto) 0.1 K/mm3 (0.0-0.4); Eosinophils % (Auto) 2.9 % (0.0-4.3); Hematocrit 35.1 % (30.3-42.9); Hemoglobin 11.2 gm/dl (10.1-14.3); Lymphocytes # (Auto) 1.7 K/mm3 (1.2-5.4); Lymphocytes % (Auto) 39.7 % (13.4-35.0); Mean Corpuscular HGB Conc 32 % (30-34); Mean Corpuscular Volume 86 fl (79-97); Monocytes # (Auto) 0.3 K/mm3 (0.0-0.8); Platelet Count 233 K/mm3 (140-440); Red Blood Count 4.07 M/mm3 (3.65-5.03); Red Cell Distribution Width 15.1 % (13.2-15.2)
[2021-07-05 06:36] LABS: Albumin 3.7 g/dL (3.9-5)
[2021-07-05] MEDS ORDERED: POTASSIUM CHLORIDE ER 20 MEQ TAB PO ONE (08:31)
[2021-07-05] MEDS: HEPARIN 5,000 UNIT/1 ML VIAL SUB-Q SCH (09:42)
[2021-07-05] MEDS: FAMOTIDINE 20 MG/2 ML INJ IV SCH (09:43)
[2021-07-05] MEDS: NIFEdipine XL 60 MG TAB PO SCH (09:43)
--- NOTE | 2021-07-05 11:42 | Electrocardiograph Report ---
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
--- NOTE | 2021-07-05 14:36 | Discharge Summary ---
Providers - Providers Date of Admission: 07/04/21 14:00 Date of discharge: 07/05/21 Attending physician: CARMEN SPRINGER MD Primary care physician: HOME CARE PHYSICAL THERAPIST Hospitalization Reason for admission: Acute chest pain Condition: Stable Pertinent studies: Reviewed. Procedures: None. Hospital course: is a 81-year-old female past medical history of hypertension, GERD, and rheumatoid arthritis presented to the ED after experiencing subjective chest pain for approximately 1 week. She describes the pain as radiating to her left arm and right shoulder, and it being worsened with palpation and movement. She describes instances of shortness of breath. The patient recently moved from [place] and is currently taking care of a daughter who recently had a brain tumor resected. The patient was evaluated in the emergency room and found to have negative troponins x3. The patient underwent TTE (07/05/2021) that was unremarkable: EF 55-60%, normal LV function and size, and RVSP 42 mmHg. The patient is medically cleared for discharge. The patient can follow-up with her primary care provider and outpatient cardiology for further evaluation. Disposition: HOME / SELF CARE / HOMELESS Final Discharge Diagnosis (Prints w/discharge instructions): Acute chest pain, hypertension, GERD, rheumatoid arthritis Time spent for discharge: 45 min Core Measure Documentation - Palliative Care Palliative Care/ Comfort Measures: Not Applicable - Core Measures Any of the following diagnoses?: none Exam - Constitutional Vitals: Temp Pulse Resp BP Pulse Ox 98.3 F 81 16 156/87 96 07/05/21 03:44 07/05/21 03:44 07/05/21 03:44 07/05/21 03:44 07/05/21 03:44 General appearance: Present: no acute distress, well-nourished - EENT Eyes: Present: PERRL, EOM intact ENT: hearing intact, clear oral mucosa, dentition normal - Neck Neck: Present: supple, normal ROM - Respiratory Respiratory effort: normal Respiratory: bilateral: CTA - Cardiovascular Rhythm: regular Heart Sounds: Present: S1 & S2 - Extremities Extremities: no ischemia, pulses intact, pulses symmetrical, No edema, normal temperature, normal color, Full ROM Peripheral Pulses: within normal limits - Abdominal General gastrointestinal: Present: soft, non-tender, non-distended, normal bowel sounds Female genitourinary: Present: deferred - Rectal Rectal Exam: deferred - Integumentary Integumentary: Present: clear, warm, dry - Musculoskeletal Musculoskeletal: strength equal bilaterally - Psychiatric Psychiatric: appropriate mood/affect, other (becomes teary-eyed easily) - Neurologic Neurologic: CNII-XII intact, moves all extremities - Allied Health Allied health notes reviewed: nursing Plan Activity: no restrictions Diet: low salt Additional Instructions: is a 81-year-old female past medical history of hypertension, GERD, and rheumatoid arthritis presented to the ED after experiencing subjective chest pain for approximately 1 week. She describes the pain as radiating to her left arm and right shoulder, and it being worsened with palpation and movement. She describes instances of shortness of breath. The patient recently moved from [place] and is currently taking care of a daughter who recently had a brain tumor resected. The patient was evaluated in the emergency room and found to have negative troponins x3. The patient underwent TTE (07/05/2021) that was unremarkable: EF 55-60%, normal LV function and size, and RVSP 42 mmHg. The patient is medically cleared for discharge. The patient can follow-up with her primary care provider and outpatient cardiology for further evaluation. Care Plan Goals: Medically cleared for discharge. Assessment: is a 81-year-old female past medical history of hypertension, GERD, and rheumatoid arthritis presented to the ED after experiencing subjective chest pain for approximately 1 week. She describes the pain as radiating to her left arm and right shoulder, and it being worsened with palpation and movement. She describes instances of shortness of breath. The patient recently moved from [place] and is currently taking care of a daughter who recently had a brain tumor resected. The patient was evaluated in the emergency room and found to have negative troponins x3. The patient underwent TTE (07/05/2021) that was unremarkable: EF 55-60%, normal LV function and size, and RVSP 42 mmHg. The patient is medically cleared for discharge. The patient can follow-up with her primary care provider and outpatient cardiology for further evaluation. Follow up with: JOSEPH WIGGINS MD [Primary Care Provider] - 3-5 Days RANDY NOEL MD [Staff Physician] - 14 Days
[2021-07-05 18:41] VITALS: BP 107/73
--- NOTE | 2021-07-06 09:08 | Electrocardiograph Report ---
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
== END 2021-07-05 15:00 | disposition home or self-care (01) ==
LOC: ED 11:45 → 4A 14:00
PROVIDERS: ADMIT Internal Medicine; ATTEND Student in an Organized Health Care Education/Training Program
DX: I24.9 Acute ischemic heart disease, unspecified (principal); I10 Essential (primary) hypertension; I48.20 Chronic atrial fibrillation, unspecified; R77.8 Other specified abnormalities of plasma proteins; K21.9 Gastro-esophageal reflux disease without esophagitis; N28.9 Disorder of kidney and ureter, unspecified; M06.9 Rheumatoid arthritis, unspecified; Z90.710 Acquired absence of both cervix and uterus; Z79.01 Long term (current) use of anticoagulants; Z79.899 Other long term (current) drug therapy; Z98.890 Other specified postprocedural states
CPT/HCPCS: 36415; 71045; 80053; 82550; 82553; 83735; 83880; 84439; 84443; 84484; 85025; 85610; 85730; 93005; 93010; 93306; 96372; 96374; 96376; 99285; G0378; J1644; J3490; C8929

== ENCOUNTER 2021-09-16 18:16 | Inpatient (IN) | payer MEDICARE ==
--- NOTE | 2021-09-16 18:23 | Emergency Department Report ---
ED Neuro Deficit HPI - General Stated Complaint: STROKE Time Seen by Provider: 09/16/21 18:18 - History of Present Illness Initial Comments: Who presents with slurred speech has been going on since last night. Patient's family reports patient has been drooling and has been very hard to understand her. Patient's last known well time was 8 PM last night patient has no focal deficits and she has a history of stroke. - Related Data Home Medications: Previous Rx's Medication Instructions Recorded Last Taken Type NIFEdipine [Nifedipine ER] 60 mg PO DAILY #30 tab.er.24 09/01/16 Unknown Rx Meclizine [Antivert] 25 mg PO TID PRN #30 tablet 01/17/19 Unknown Rx traMADoL [Ultram 50 MG tab] 50 mg PO Q6HR PRN #20 tablet 01/17/19 Unknown Rx Allergies/Adverse Reactions: Allergies Allergy/AdvReac Type Severity Reaction Status Date / Time No Known Allergies Allergy Unverified 09/01/16 16:22 ED Review of Systems ROS: Stated complaint: STROKE Other details as noted in HPI Constitutional: denies: chills, fever Eyes: denies: eye pain, eye discharge, vision change ENT: denies: ear pain, throat pain Respiratory: denies: cough, shortness of breath, wheezing Cardiovascular: denies: chest pain, palpitations Endocrine: no symptoms reported Gastrointestinal: denies: abdominal pain, nausea, diarrhea Genitourinary: denies: urgency, dysuria, discharge Musculoskeletal: denies: back pain, joint swelling, arthralgia Skin: denies: rash, lesions Neurological: as per HPI. denies: headache, weakness, paresthesias Psychiatric: denies: anxiety, depression Hematological/Lymphatic: denies: easy bleeding, easy bruising ED Past Medical Hx - Past Medical History Hx Hypertension: Yes Hx GERD: Yes Hx Arthritis: Yes (rheumatoid) - Surgical History Additional Surgical History: partial hysterectomy - Social History Smoking Status: Unknown if ever smoked - Medications Home Medications: Home Medications Medication Instructions Recorded Confirmed Last Taken Type NIFEdipine [Nifedipine ER] 60 mg PO DAILY #30 tab.er.24 09/01/16 07/04/21 Unknown Rx Meclizine [Antivert] 25 mg PO TID PRN #30 tablet 01/17/19 07/04/21 Unknown Rx traMADoL [Ultram 50 MG tab] 50 mg PO Q6HR PRN #20 tablet 01/17/19 07/04/21 Unknown Rx ED Neuro Physical Exam - General General appearance: alert, in no apparent distress Suspected Stroke: Yes - Head Head exam: Present: atraumatic, normocephalic - Eye Eye exam: Present: normal appearance - ENT ENT exam: Present: mucous membranes moist - Neck Neck exam: Present: normal inspection - Respiratory Respiratory exam: Present: normal lung sounds bilaterally. Absent: respiratory distress - Cardiovascular Cardiovascular Exam: Present: regular rate, normal rhythm. Absent: systolic murmur, diastolic murmur, rubs, gallop - GI/Abdominal GI/Abdominal exam: Present: soft, normal bowel sounds - Rectal Rectal exam: Present: deferred - Extremities Exam Extremities exam: Present: normal inspection - Back Exam Back exam: Present: normal inspection - Neurological Exam Neurological exam: Present: alert, oriented X3, other - NIHSS Assessment Interval: Baseline 1a. Level of Consciousness: alert/keenly responsive 1b. LOC Questions: answers both correctly 1c. LOC Commands: performs tasks correctly 2. Best Gaze: normal 3. Visual: no visual loss 4. Facial Palsy: normal symmetrical movement 5b. Motor Arm Right: no drift 5a. Motor Arm Left: no drift 6a. Motor Leg Left: no drift 6b. Motor Leg Right: no drift 7. Limb Ataxia: absent 8. Sensory: normal 9. Best Language: no aphasia 10. Dysarthria: mild/moderate dysarthria 11. Extinction/Inattention: no abnormality Total Score: 1 Stroke Severity: Minor Stroke - Psychiatric Psychiatric exam: Present: normal affect, normal mood - Skin Skin exam: Present: warm, dry, intact, normal color. Absent: rash ED Course Vital Signs 09/16/21 19:02 Temperature 98.1 F Pulse Rate 100 H Respiratory 18 Rate Blood Pressure 165/99 [Left] O2 Sat by Pulse 100 Oximetry - Reevaluation(s) Reevaluation #1: 09/16/21 22:58 Patient has some more slurred speech patient is in atrial fib I will give patient IV diltiazem Reevaluation #2: 09/16/21 23:00 Spoke with hospitalist patient should be admitted - Consultations Consultation #1: 09/16/21 21:[address] Jackson patient will need to be admitted for stroke workup - Lab Data Result diagrams: 09/16/21 18:56 09/16/21 21:48 Lab Results 09/16/21 09/16/21 09/16/21 Range/Units 18:56 18:56 18:56 WBC 5.3 (4.5-11.0) K/mm3 RBC 3.84 (3.65-5.03) M/mm3 Hgb 10.8 (10.1-14.3) gm/dl Hct 33.7 (30.3-42.9) % MCV 88 (79-97) fl MCH 28 (28-32) pg MCHC 32 (30-34) % RDW 14.3 (13.2-15.2) % Plt Count 238 (140-440) K/mm3 Lymph % (Auto) 24.6 (13.4-35.0) % [place]illespie % (Auto) 11.3 H (0.0-7.3) % Eos % (Auto) 1.2 (0.0-4.3) % Baso % (Auto) 0.8 (0.0-1.8) % Lymph # (Auto) 1.3 (1.2-5.4) K/mm3 Gillespie # (Auto) 0.6 (0.0-0.8) K/mm3 Eos # (Auto) 0.1 (0.0-0.4) K/mm3 Baso # (Auto) 0.0 (0.0-0.1) K/mm3 Seg Neutrophils % 62.1 (40.0-70.0) % Seg Neutrophils # 3.3 (1.8-7.7) K/mm3 PT 14.9 (12.2-14.9) Sec. INR 1.05 (0.87-1.13) APTT 26.5 (24.2-36.6) Sec. Thrombin Time 18.5 (15.1-19.6) Sec. Sodium (137-145) mmol/L Potassium (3.6-5.0) mmol/L Chloride (98-107) mmol/L Carbon Dioxide (22-30) mmol/L Anion Gap mmol/L BUN (7-17) mg/dL Creatinine (0.6-1.2) mg/dL Estimated GFR ml/min BUN/Creatinine Ratio % Glucose (65-100) mg/dL Calcium (8.4-10.2) mg/dL Total Creatine Kinase 124 (30-135) units/L CK-MB (CK-2) 1.5 (0.0-4.0) ng/mL CK-MB (CK-2) Rel Index 1.2 (0-4) Troponin T < 0.010 (0.00-0.029) ng/mL 09/16/21 Range/Units 21:48 WBC (4.5-11.0) K/mm3 RBC (3.65-5.03) M/mm3 Hgb (10.1-14.3) gm/dl Hct (30.3-42.9) % MCV (79-97) fl MCH (28-32) pg MCHC (30-34) % RDW (13.2-15.2) % Plt Count (140-440) K/mm3 Lymph % (Auto) (13.4-35.0) % Gillespie % (Auto) (0.0-7.3) % Eos % (Auto) (0.0-4.3) % Baso % (Auto) (0.0-1.8) % Lymph # (Auto) (1.2-5.4) K/mm3 Gillespie # (Auto) (0.0-0.8) K/mm3 Eos # (Auto) (0.0-0.4) K/mm3 Baso # (Auto) (0.0-0.1) K/mm3 Seg Neutrophils % (40.0-70.0) % Seg Neutrophils # (1.8-7.7) K/mm3 PT (12.2-14.9) Sec. INR (0.87-1.13) APTT (24.2-36.6) Sec. Thrombin Time (15.1-19.6) Sec. Sodium 141 (137-145) mmol/L Potassium 3.9 (3.6-5.0) mmol/L Chloride 100.3 (98-107) mmol/L Carbon Dioxide 25 (22-30) mmol/L Anion Gap 20 mmol/L BUN 33 H (7-17) mg/dL Creatinine 2.4 H (0.6-1.2) mg/dL Estimated GFR 23 ml/min BUN/Creatinine Ratio 14 % Glucose 92 (65-100) mg/dL Calcium 8.9 (8.4-10.2) mg/dL Total Creatine Kinase (30-135) units/L CK-MB (CK-2) (0.0-4.0) ng/mL CK-MB (CK-2) Rel Index (0-4) Troponin T (0.00-0.029) ng/mL - EKG Data -: EKG Interpreted by Me 09/16/21 21:44 EKG time 21: 32 rate 105 atrial fibrillation with LVH and abnormal repolarization impression abnormal EKG - Radiology Data Radiology results: report reviewed, image reviewed CT head: Shows lacunar infarcts of undetermined age - Medical Decision Making Chief medical diagnosis: Ischemic stroke Differential medical diagnosis hemorrhagic stroke, TIA I will consult neurology we will get CT scan of head CT angio head and neck blood work EKG and will reevaluate patient - Core Measures AMI Core Measures Followed: Yes Measure Exclusions: not indicated - Thrombolytic Inclusion/Exclusion Thrombolytic Exclusion Criteria: Onset of Symptoms Unknown Thrombolytic Inclusion Criteria: Negative CT Scan for ICH Thrombolytic Contraindications: Rapidily Improving s/s Critical Care Time: Yes (120) Critical care attestation.: If time is entered above; I have spent that time in minutes in the direct care of this critically ill patient, excluding procedure time. ED Disposition Clinical Impression: Ischemic stroke, Slurred speech Disposition: ADMITTED INPATIENT Is pt being admited?: Yes Does the pt Need Aspirin: Yes Condition: Stable
--- NOTE | 2021-09-16 19:00 | Cat Scan Report ---
CT head/brain wo con INDICATION / CLINICAL INFORMATION: 81 years Female; Stroke symptoms. TECHNIQUE: Routine CT head without contrast. All CT scans at this location are performed using CT dos e reduction for ALARA by means of automated exposure control. COMPARISON: 01/17/2019 FINDINGS: BRAIN / INTRACRANIAL CONTENTS: There is a lacunar infarct seen in the right putamen which is not appr eciated on prior exam - age-indeterminate without diffusion imaging by MRI. Multiple lacunar infarcts are seen in the gangliocapsular regions, as well as the bilateral thalamic regions. Old, branch PICA infarct seen on the left Eran unchanged from prior. Otherwise, no acute hemorrhage, mass effect, midline shift, hydrocephalus, or acute, large territori al infarct. Mild, diffuse cerebral atrophy. There are moderate areas of decreased attenuation in the white matter of the cerebral hemispheres, as well as the gangliocapsular regions. These are nonspecific findings and may be related to microangio tito (hypertension, diabetes, atherosclerosis), given the patient's age. It might be difficult to ev aluate for small areas of ischemia without diffusion imaging by MRI. CRANIOCERVICAL JUNCTION: No significant abnormality. ORBITS: No significant abnormality of visualized orbits. SINUSES / MASTOIDS: Mild to moderate mucosal thickening seen in the mastoids. No evidence of coalesce nce of air cells. ADDITIONAL FINDINGS: Atherosclerotic disease is seen in the anterior circulation. IMPRESSION: 1. No focal mass, hemorrhage, hydrocephalus, or acute, large territorial infarct. Follow-up with diff usion imaging by MRI, as clinically warranted. CODE STROKE: Exam Completed (BOTTLE LABEL INSPECTOR/CDT): 09/16/2021 5:37 PM Exam Reviewed (BOTTLE LABEL INSPECTOR/CDT): 5:48 PM Time of Communication (BOTTLE LABEL INSPECTOR/CDT): 5:55 PM Licensed Practitioner Receiving Report: Dr. Inman Signer Name: Shankar Garcia MD, III Signed: 09/16/2021 6:55 PM Workstation Name: [id number]
[2021-09-16 19:32] LABS: Creatine Kinase MB 1.5 ng/mL (0.0-4.0)
--- NOTE | 2021-09-16 19:39 | Cat Scan Report ---
CT angio head INDICATION / CLINICAL INFORMATION: 81 years Female; stroke sx. TECHNIQUE: Thin cut axial images obtained through the head during IV bolus contrast administration. S agittal, coronal, and 3 plane MIP reconstructions performed by the technologist. NASCET type criteria used evaluate stenoses. Automated exposure control utilized for radiation reduction purposes. . COMPARISON: None available. FINDINGS: INTERNAL CAROTID ARTERIES: There is a mild narrowing is seen bilaterally in the cavernous and/or comm unicating portions of both internal carotid arteries, related atherosclerotic disease. VERTEBROBASILAR SYSTEM: Left vertebral artery is mildly dominant when compared with the right. The ri ght vertebral artery largely terminates in the right PICA territory. There are areas of moderate to h igh-grade narrowing throughout the distal left vertebral artery, as well as the diminutive basilar ar scottie. Note, posterior communicating arteries helps supply blood flow to the posterior cerebral artery circu lation, bilaterally. Areas of mild narrowing are seen in both posterior communicating arteries. DISTAL BRANCHES: Distal branches of the anterior, middle, and posterior cerebral arteries are fairly symmetric in appearance and number. Areas of dhly-uh-lngelcdl narrowing are seen in distal MCA and SURFACE GRINDING MACHINE HAND branches bilaterally. Focal areas of high-grade narrowing are seen bilaterally in the MCA territories, in the posterior arabella vian fissure regions. No signs of large vessel occlusion. ANEURYSM: None identified. ADDITIONAL FINDINGS: Mild to moderate opacification of the mastoid seen. There is no coalescence of a ir cells appreciated. IMPRESSION: Significant areas of narrowing identified throughout, as described above. Signer Name: Shankar Garcia MD, III Signed: 09/16/2021 7:34 PM Workstation Name: [id number]
[2021-09-16 19:40] LABS: INR 1.05 (0.87-1.13)
[2021-09-16 19:41] LABS: Partial Thromboplastin Time 26.5 Sec. (24.2-36.6)
[2021-09-16 19:43] LABS: Basophils % (Auto) 0.8 % (0.0-1.8); Eosinophils # (Auto) 0.1 K/mm3 (0.0-0.4); Eosinophils % (Auto) 1.2 % (0.0-4.3); Hematocrit 33.7 % (30.3-42.9); Hemoglobin 10.8 gm/dl (10.1-14.3); Lymphocytes # (Auto) 1.3 K/mm3 (1.2-5.4); Lymphocytes % (Auto) 24.6 % (13.4-35.0); Mean Corpuscular HGB Conc 32 % (30-34); Mean Corpuscular Volume 88 fl (79-97); Monocytes # (Auto) 0.6 K/mm3 (0.0-0.8); Monocytes % (Auto) 11.3 % (0.0-7.3); Platelet Count 238 K/mm3 (140-440); Red Blood Count 3.84 M/mm3 (3.65-5.03); Red Cell Distribution Width 14.3 % (13.2-15.2)
--- NOTE | 2021-09-16 19:47 | Cat Scan Report ---
CT angio neck INDICATION / CLINICAL INFORMATION: 81 years Female; stroke sx. TECHNIQUE: Thin cut axial images obtained through the head during IV bolus contrast administration. S agittal, coronal, and 3 plane MIP reconstructions performed by the technologist. NASCET type criteria used evaluate stenoses. All CT scans at this location are performed using CT dose reduction for ALAR A by means of automated exposure control. . COMPARISON: None available. FINDINGS: ARCH: Bovine arch configuration noted. CAROTID ARTERIES: The visualized common and internal carotid arteries are widely patent. Minimal athe rosclerotic disease seen. Tortuous vessels noted, which may be a sign of hypertension. VERTEBRAL ARTERIES: Left dominant vertebral system seen. No significant stenosis appreciated in the e xtra cranial vertebral arteries. ADDITIONAL FINDINGS: There is disc disease at C3-4, which encroaches upon and may impinge cervical co rd. Follow-up with MRI as clinically warranted. Mild osseous foraminal narrowing seen bilaterally at C4-5 from facet hypertrophy. Multilevel disc space narrowing seen with most marked findings at C3-4. IMPRESSION: 1. No significant stenosis appreciated on this CTA of the neck. 2. Significant disc disease seen at C3-4. Follow-up with MRI of the cervical spine, as clinically war ranted. Signer Name: Shankar Garcia MD, III Signed: 09/16/2021 7:42 PM Workstation Name: [email or web address]
[2021-09-16 19:48] LABS: Thrombin Time 18.5 Sec. (15.1-19.6)
[2021-09-16] MEDS ORDERED: ASPIRIN 81 MG TAB CHEW PO ONE (21:46)
[2021-09-16] MEDS ORDERED: ACETAMINOPHEN 325 MG TAB PO PRN ×2 (21:58)
[2021-09-16] MEDS ORDERED: ONDANSETRON 4 MG/2 ML INJ IV PRN ×2 (21:58)
[2021-09-16] MEDS ORDERED: MAGNESIUM HYDROXIDE (MOM) ORAL LIQD UDC PO PRN ×2 (21:58)
[2021-09-16] MEDS ORDERED: PROMETHAZINE 25 MG RECT SUPP PR PRN (21:58)
[2021-09-16] MEDS ORDERED: METOCLOPRAMIDE 10 MG TAB PO PRN (21:58)
[2021-09-16] MEDS ORDERED: MORPHINE 4 MG/1 ML INJ IV PRN ×2 (21:58)
[2021-09-16] MEDS ORDERED: MORPHINE 2 MG/1 ML INJ IV PRN ×2 (21:58)
[2021-09-16 22:41] LABS: Calcium 8.9 mg/dL (8.4-10.2)
[2021-09-16] MEDS ORDERED: dilTIAZem 25 MG/5 ML INJ IV ONE (22:57)
[2021-09-16] MEDS ORDERED: FAMOTIDINE 20 MG/2 ML INJ IV ONE ×3 (23:11→23:24)
[2021-09-16] MEDS ORDERED: diphenhydrAMINE 50 MG/ML VIAL IV ONE (23:13)
[2021-09-16] MEDS ORDERED: SODIUM CHLORIDE 0.9% 1000 ML 1,000 ML IV ONE (23:30)
[2021-09-16] MEDS ORDERED: dexAMETHasone 4 MG/ML VIAL IV NR (23:45)
--- NOTE | 2021-09-17 01:32 | Consultation ---
History of Present Illness - History of Present Illness [facility] Consult Note # Demographics Consult Type: Follow-Up Phone Call Patient Location: Emergency Room First Name: Melanie Last Name: Mari Date of : 1940 Age: 81 Gender: Female Facility: [facility] Time of Initial Page ( Time): 09/16/2021, 18:50 Time of Return Call ( Time): 09/16/2021, 18:53 # HPI History: 81 year old female with HTN, DM, HLD presents with slurred speech. Patient states she has not been feeling well but not sure why her family asked her to go to ED. Not complaints otherwise of focal deficits but intermittently not answering complex questions. # Scores Time of exam and NIHSS (): 09/16/2021, 18:22 Level of Consciousness 1a: [0] = Alert; keenly responsive LOC Questions 1b: [0] = Answers both questions correctly LOC Commands 1c: [0] = Performs both tasks correctly Best Gaze 2: [0] = Normal Visual 3: [0] = No visual loss Facial Palsy 4: [0] = Normal symmetrical movements Motor Arm Left 5a: [0] = No drift Motor Arm Right 5b: [0] = No drift Motor Leg Left 6a: [1] = Drift Motor Leg Right 6b: [1] = Drift Limb Ataxia 7: [0] = Absent Sensory 8: [0] = Normal Best Language 9: [0] = No aphasia Dysarthria 10: [1] = Jpix-lz-[id number] dysarthria Extinction and Inattention 11: [0] = No abnormality NIHSS Total: 3 # PMH-FH-SH Past Medical History: Diabetes hyperlipidemia hypertension hypothyroid Social History: non-smoker non-drinker no drugs lives with spouse Medications: antihypertensive aspirin diabetic medication lipid lowering agent # Data Head CT: no bleed per radiologist read CTA Head: no large vessel occlusion per radiologist read CTA Neck: patent vessels per radiologist read # Assessment Impression: 81 year old female with hx of HTN, HLD, DM presents with slurred speech. No other deficits noted of focality on exam. CTH, CTA negative. Patient not tpa or intervention candidate. Given risk factors, recommend stroke work up. Also metabolic and infectious work up as per ED which can certainly be the cause. # Plan Thrombolytic/Intervention: NOT IV Thrombolysis or IA Intervention candidate Thrombolytic Exclusion (< 3 hour window): non-disabling deficit Thrombolytic Exclusion (3-4.5 hour window): age > 80 Intraarterial Exclusion: no large vessel occlusion (LVO) Blood Pressure Management: IV fluid bolus Target Blood Pressure: SBP < 160 SBP > 110 DBP < 105 Labs: CBC comprehensive metabolic panel ESR hemoglobin A1c lipid panel troponin TSH ua Imaging: (urgency: STAT): CT Angiogram Head and CT Angiogram Neck Imaging: (urgency: routine): MRI Brain without contrast Diagnostic Test: echo with bubble study Therapy/Evaluation: PT/OT evaluation speech/swallow consultation Medication: aspirin 81 mg PLUS clopidogrel (Plavix) 75 mg for 21 days, then monotherapy therafter start statin with goal of LDL < 70 DVT Prophylaxis: SCD Other: consult on-site neurology service for full work-up and evaluation recommendati ons If patient has any neurological deterioration please call me back immediately permissive hypertension telemetry monitoring I have discussed my recommendations with the referring provider Disposition: admit Medications and Allergies Allergies Allergy/AdvReac Type Severity Reaction Status Date / Time No Known Allergies Allergy Unverified 09/01/16 16:22 Home Medications Medication Instructions Recorded Confirmed Last Taken Type NIFEdipine [Nifedipine ER] 60 mg PO DAILY #30 tab.er.24 09/01/16 07/04/21 U nknown Rx Meclizine [Antivert] 25 mg PO TID PRN #30 tablet 01/17/19 07/04/21 Unknown Rx traMADoL [Ultram 50 MG tab] 50 mg PO Q6HR PRN #20 tablet 01/17/19 07/04/21 Unknown Rx Active Meds: Active Medications Acetaminophen (Acetaminophen 325 Mg Tab) 650 mg PO Q4H PRN PRN Reason: Pain MILD(1-3)/Fever >100.5/GUERRA Aspirin (Aspirin 325 Mg Tab) 325 mg PO QDAY ALEIDA Atorvastatin Calcium (Atorvastatin 40 Mg Tab) 40 mg PO QHS [facility] Last Admin: 09/16/21 23:35 Dose: 40 mg Bisacodyl (Bisacodyl 10 Mg Rect Supp) 10 mg MT QDAY PRN PRN Reason: Constipation Magnesium Hydroxide (Magnesium Hydroxide (Mom) Oral Liqd Udc) 30 ml PO Q4H PRN PRN Reason: Constipation Metoclopramide HCl (Metoclopramide 10 Mg Tab) 10 mg PO Q6H PRN PRN Reason: Nausea And Vomiting Morphine Sulfate (Morphine 2 Mg/1 Ml Inj) 2 mg IV Q4H PRN PRN Reason: Pain, Moderate (4-6) Morphine Sulfate (Morphine 4 Mg/1 Ml Inj) 4 mg IV Q4H PRN PRN Reason: Pain , Severe (7-10) Ondansetron HCl (Ondansetron 4 Mg/2 Ml Inj) 4 mg IV Q8H PRN PRN Reason: Nausea And Vomiting Promethazine HCl (Promethazine 25 Mg Rect Supp) 25 mg MT Q6H PRN PRN Reason: Nausea And Vomiting Sodium Chloride (Sodium Chloride 0.9% 10 Ml Flush Syringe) 10 ml IV BID ALEIDA Last Admin: 09/16/21 23:15 Dose: 10 ml Sodium Chloride (Sodium Chloride 0.9% 10 Ml Flush Syringe) 10 ml IV PRN PRN PRN Reason: LINE FLUSH Exam - Constitutional Vitals: Temp Pulse Resp BP Pulse Ox 98.2 F 94 H 16 152/95 100 09/16/21 19:20 09/16/21 23:45 09/16/21 23:45 09/16/21 23:45 09/16/21 23:45 Results - Labs CBC & Chem 7: 09/16/21 18:56 09/16/21 21:48 Labs: Abnormal lab results 09/16/21 09/16/21 Range/Units 18:56 21:48 [place] % (Auto) 11.3 H (0.0-7.3) % BUN 33 H (7-17) mg/dL Creatinine 2.4 H (0.6-1.2) mg/dL
[2021-09-17 06:24] LABS: Calcium 9.1 mg/dL (8.4-10.2)
--- NOTE | 2021-09-17 07:33 | History and Physical Report ---
History of Present Illness Date of examination: 09/16/21 Date of admission: 09/16/21 21:58 Chief complaint: Slurred speech History of present illness: 81-year-old female with significant past medical history of hypertension, GERD seen in the emergency room today with a complaint of slurred speech. Symptoms were said to have started overnight when family noticed that patient had been drooling and her speech is not slurred. Patient denies any headache or dizziness, denies any diaphoresis. Denies any blurry vision. No nausea vomiting and no abdominal pain. Denies any fever or chills. Symptoms had improved upon arrival in the emergency room. Work-up in the emergency room today, CT angio of the head shows high-grade narrowing bilateral and lay in the MCA territories, mild to moderate narrowing is seen in the distal MCA and DIRECT SERVICE PROVIDER branches bilaterally. CTA of the neck shows no significant stenosis. CT scan of the head shows no acute abnormality. Patient being worked up for possible CVA. Past History Past Medical History: arthritis (Rheumatoid), GERD, hypertension Past Surgical History: Other (Partial hysterectomy) Social history: no significant social history Family history: no significant family history Medications and Allergies Allergies Allergy/AdvReac Type Severity Reaction Status Date / Time No Known Allergies Allergy Unverified 09/01/16 16:22 Home Medications Medication Instructions Recorded Confirmed Last Taken Type NIFEdipine [Nifedipine ER] 60 mg PO DAILY #30 tab.er.24 09/01/16 07/04/21 Unknown Rx Meclizine [Antivert] 25 mg PO TID PRN #30 tablet 01/17/19 07/04/21 Unknown Rx traMADoL [Ultram 50 MG tab] 50 mg PO Q6HR PRN #20 tablet 01/17/19 07/04/21 Unknown Rx Active Meds: Active Medications Acetaminophen (Acetaminophen 325 Mg Tab) 650 mg PO Q4H PRN PRN Reason: Pain MILD(1-3)/Fever >100.5/GUERRA Aspirin (Aspirin 325 Mg Tab) 325 mg PO QDAY ALEIDA Atorvastatin Calcium (Atorvastatin 40 Mg Tab) 40 mg PO QHS [facility] Last Admin: 09/16/21 23:35 Dose: 40 mg Bisacodyl (Bisacodyl 10 Mg Rect Supp) 10 mg GA QDAY PRN PRN Reason: Constipation Magnesium Hydroxide (Magnesium Hydroxide (Mom) Oral Liqd Udc) 30 ml PO Q4H PRN PRN Reason: Constipation Metoclopramide HCl (Metoclopramide 10 Mg Tab) 10 mg PO Q6H PRN PRN Reason: Nausea And Vomiting Morphine Sulfate (Morphine 2 Mg/1 Ml Inj) 2 mg IV Q4H PRN PRN Reason: Pain, Moderate (4-6) Morphine Sulfate (Morphine 4 Mg/1 Ml Inj) 4 mg IV Q4H PRN PRN Reason: Pain , Severe (7-10) Ondansetron HCl (Ondansetron 4 Mg/2 Ml Inj) 4 mg IV Q8H PRN PRN Reason: Nausea And Vomiting Promethazine HCl (Promethazine 25 Mg Rect Supp) 25 mg GA Q6H PRN PRN Reason: Nausea And Vomiting Sodium Chloride (Sodium Chloride 0.9% 10 Ml Flush Syringe) 10 ml IV BID ALEIDA Last Admin: 09/16/21 23:15 Dose: 10 ml Sodium Chloride (Sodium Chloride 0.9% 10 Ml Flush Syringe) 10 ml IV PRN PRN PRN Reason: LINE FLUSH Review of Systems All systems: negative (Slurred speech) Exam - Constitutional Vitals: Temp Pulse Resp BP Pulse Ox 98.4 F 98 H 18 169/100 97 09/17/21 04:16 09/17/21 04:16 09/17/21 04:16 09/17/21 04:16 09/17/21 04:16 General appearance: Present: no acute distress, well-nourished - EENT Eyes: Present: PERRL, EOM intact. Absent: scleral icterus ENT: hearing intact, clear oral mucosa, dentition normal - Neck Neck: Present: supple, normal ROM - Respiratory Respiratory effort: normal Respiratory: bilateral: CTA - Cardiovascular Rhythm: regular Heart Sounds: Present: S1 & S2. Absent: gallop, systolic murmur, diastolic murmur, rub, click - Extremities Extremities: no ischemia, pulses intact, pulses symmetrical, No edema, normal temperature, normal color, Full ROM Peripheral Pulses: within normal limits - Abdominal General gastrointestinal: Present: soft, non-tender, non-distended, normal bowel sounds. Absent: mass - Integumentary Integumentary: Present: clear, warm, dry, normal turgor. Absent: rash - Musculoskeletal Musculoskeletal: strength equal bilaterally - Psychiatric Psychiatric: appropriate mood/affect, intact judgment & insight, memory intact, cooperative - Neurologic Neurologic: CNII-XII intact, no focal deficits, moves all extremities HEART Score - HEART Score Troponin: Troponin T < 0.010 ng/mL (0.00-0.029) 09/16/21 18:56 Results - Labs CBC & Chem 7: 09/16/21 18:56 09/17/21 05:23 Labs: Abnormal lab results 09/16/21 09/16/21 09/17/21 Range/Units 18:56 21:48 05:23 [place] % (Auto) 11.3 H (0.0-7.3) % BUN 33 H 33 H (7-17) mg/dL Creatinine 2.4 H 2.2 H (0.6-1.2) mg/dL Glucose 144 H (65-100) mg/dL Assessment and Plan - Patient Problems (1) Slurred speech Current Visit: Yes Status: Acute Plan to address problem: Patient be worked up for possible CVA. We will schedule for MRI of the brain. Consult placed to neurology for evaluation. Meanwhile patient commenced on daily aspirin, Plavix and statin as recommended by neurology.. (2) Renal insufficiency Current Visit: No Status: Acute Plan to address problem: Appears chronic. Consult placed to nephrology for evaluation and recommendations. (3) Hypertension Current Visit: No Status: Chronic Qualifiers: Hypertension type: primary hypertension Qualified Code(s): I10 - Essential (primary) hypertension (4) DVT prophylaxis Current Visit: No Status: Acute Plan to address problem: Patient placed on sequential compression device as recommended by neurology. (5) Full code status Current Visit: Yes Status: Acute Plan to address problem: Patient is full code.
--- NOTE | 2021-09-17 08:15 | Consultation ---
History of Present Illness - Reason for Consult Consult date: 09/17/21 acute renal failure - History of Present Illness The patient is a 81 YO female with history notable for Hypertension, GERD and CKD who presented to [facility] 09/16/21 with a complaint of slurred speech. Patient is a poor historian. Symptoms were said to have started overnight when family noticed that patient had been drooling and her speech is slurred. Patient denies any headache, dizziness, diaphoresis, blurry vision, nausea, vomiting, diarrhea, abdominal pain, fever or chills. Symptoms had improved upon arrival in the ED. CT angio of the head showed high-grade narrowing bilaterally in the MCA territories, mild to moderate narrowing is seen in the distal MCA and MANAGER PLUMBING branches bilaterally. CTA of the neck showed no significant stenosis. CT scan of the head shows no acute abnormality. Patient admitted with possible CVA. Labs notable for Creat 2.2. Nephrology was consulted for further evaluation of renal insufficiency. Past History Past Medical History: arthritis (Rheumatoid), GERD, hypertension, renal failure Past Surgical History: Other (Partial hysterectomy) Social history: no significant social history Family history: no significant family history Medications and Allergies Allergies Allergy/AdvReac Type Severity Reaction Status Date / Time No Known Allergies Allergy Unverified 09/01/16 16:22 Home Medications Medication Instructions Recorded Confirmed Last Taken Type NIFEdipine [Nifedipine ER] 60 mg PO DAILY #30 tab.er.24 09/01/16 07/04/21 Unknown Rx Meclizine [Antivert] 25 mg PO TID PRN #30 tablet 01/17/19 07/04/21 Unknown Rx traMADoL [Ultram 50 MG tab] 50 mg PO Q6HR PRN #20 tablet 01/17/19 07/04/21 Unknown Rx Active Meds: Active Medications Acetaminophen (Acetaminophen 325 Mg Tab) 650 mg PO Q4H PRN PRN Reason: Pain MILD(1-3)/Fever >100.5/GUERRA Aspirin (Aspirin 81 Mg Tab Chew) 81 mg PO QDAY [facility] Atorvastatin Calcium (Atorvastatin 40 Mg Tab) 40 mg PO QHS [facility] Last Admin: 09/16/21 23:35 Dose: 40 mg Bisacodyl (Bisacodyl 10 Mg Rect Supp) 10 mg NE QDAY PRN PRN Reason: Constipation Clopidogrel Bisulfate (Clopidogrel 75 Mg Tab) 75 mg PO QDAY [facility] Magnesium Hydroxide (Magnesium Hydroxide (Mom) Oral Liqd Udc) 30 ml PO Q4H PRN PRN Reason: Constipation Metoclopramide HCl (Metoclopramide 10 Mg Tab) 10 mg PO Q6H PRN PRN Reason: Nausea And Vomiting Morphine Sulfate (Morphine 2 Mg/1 Ml Inj) 2 mg IV Q4H PRN PRN Reason: Pain, Moderate (4-6) Morphine Sulfate (Morphine 4 Mg/1 Ml Inj) 4 mg IV Q4H PRN PRN Reason: Pain , Severe (7-10) Ondansetron HCl (Ondansetron 4 Mg/2 Ml Inj) 4 mg IV Q8H PRN PRN Reason: Nausea And Vomiting Promethazine HCl (Promethazine 25 Mg Rect Supp) 25 mg NE Q6H PRN PRN Reason: Nausea And Vomiting Sodium Chloride (Sodium Chloride 0.9% 10 Ml Flush Syringe) 10 ml IV BID [facility] Last Admin: 09/16/21 23:15 Dose: 10 ml Sodium Chloride (Sodium Chloride 0.9% 10 Ml Flush Syringe) 10 ml IV PRN PRN PRN Reason: LINE FLUSH Review of Systems All systems: negative Exam - Vital Signs Vital signs: Vital Signs Temp Pulse Resp BP Pulse Ox 98.1 F 100 H 18 165/99 100 09/16/21 19:02 09/16/21 19:02 09/16/21 19:02 09/16/21 19:02 09/16/21 19:02 Results - Lab Results 09/18/21 08:55 09/18/21 07:42 Most recent lab results Calcium 9.1 mg/dL (8.4-10.2) 09/17/21 05:23 Assessment and Plan 1. Acute kidney injury: Acute kidney injury superimposed on CKD. Urien studies and Renal US. Baseline CKD. Monitor renal function. Creatinine level is slightly better. Avoid nephrotoxic agents. Meds dosage based on GFR. 2. FEN: Monitor lytes and volume status. 3. Slurred speech: Initial CT unremarkable. CTA brain and neck is remarkable for intra cranial atherosclerotic changes in ICA and vertebral system. ASA, Lipitor and Plavix. MRI brain is pending. Echo is pending. Neuro consult. 4. Hypertension: Permissive HTN <200/100 for 24 hours, then gradual control of BP <150/80. Subjective: Patient was seen and examined at the bedside. Examination: General appearance: well-developed, appears stated age, no distress HEENT: atraumatic, pupils reacting to light Neck: trachea midline Respiratory: ctab Heart: S1S2, no murmur Abdomen: soft, bowel sounds heard, NT Integumentary: no obvious rash Neurologic: alert, some confusion noted, able to move extremities Ext: no edema noted
--- NOTE | 2021-09-17 08:35 | Consultation ---
History of Present Illness Consult date: 09/17/21 Reason for Consult: Slurred speech and HTN History of present illness: Chief complaint: Slurred speech History of present illness: 81-year-old female with significant past medical history of hypertension, GERD seen in the emergency room today with a complaint of slurred speech. Symptoms were said to have started overnight when family noticed that patient had been drooling and her speech is not slurred. Patient denies any headache or dizziness, denies any diaphoresis. Denies any blurry vision. No nausea vomiting and no abdominal pain. Denies any fever or chills. Symptoms had improved upon arrival in the emergency room. Work-up in the emergency room today, CT angio of the head shows high-grade narrowing bilateral and lay in the MCA territories, mild to moderate narrowing is seen in the distal MCA and MANAGER BILLING branches bilaterally. CTA of the neck shows no significant stenosis. CT scan of the head shows no acute abnormality. Patient being worked up for possible CVA. today she is alert with some speech impairment /unclear speech / no clear aphasia Past History Past Medical History: arthritis (Rheumatoid), GERD, hypertension Past Surgical History: Other (Partial hysterectomy) Social history: no significant social history Family history: no significant family history Medications and Allergies Allergies Allergy/AdvReac Type Severity Reaction Status Date / Time No Known Allergies Allergy Unverified 09/01/16 16:22 Home Medications Medication Instructions Recorded Confirmed Last Taken Type NIFEdipine [Nifedipine ER] 60 mg PO DAILY #30 tab.er.24 09/01/16 07/04/21 Unkn own Rx Meclizine [Antivert] 25 mg PO TID PRN #30 tablet 01/17/19 07/04/21 Unknown Rx traMADoL [Ultram 50 MG tab] 50 mg PO Q6HR PRN #20 tablet 01/17/19 07/04/21 Unknown Rx Active Meds: Active Medications Acetaminophen (Acetaminophen 325 Mg Tab) 650 mg PO Q4H PRN PRN Reason: Pain MILD(1-3)/Fever >100.5/[facility]ERRA Aspirin (Aspirin 325 Mg Tab) 325 mg PO QDAY [facility] Atorvastatin Calcium (Atorvastatin 40 Mg Tab) 40 mg PO QHS [facility] Last Admin: 09/16/21 23:35 Dose: 40 mg Bisacodyl (Bisacodyl 10 Mg Rect Supp) 10 mg LA QDAY PRN PRN Reason: Constipation Magnesium Hydroxide (Magnesium Hydroxide (Mom) Oral Liqd Udc) 30 ml PO Q4H PRN PRN Reason: Constipation Metoclopramide HCl (Metoclopramide 10 Mg Tab) 10 mg PO Q6H PRN PRN Reason: Nausea And Vomiting Morphine Sulfate (Morphine 2 Mg/1 Ml Inj) 2 mg IV Q4H PRN PRN Reason: Pain, Moderate (4-6) Morphine Sulfate (Morphine 4 Mg/1 Ml Inj) 4 mg IV Q4H PRN PRN Reason: Pain , Severe (7-10) Ondansetron HCl (Ondansetron 4 Mg/2 Ml Inj) 4 mg IV Q8H PRN PRN Reason: Nausea And Vomiting Promethazine HCl (Promethazine 25 Mg Rect Supp) 25 mg LA Q6H PRN PRN Reason: Nausea And Vomiting Sodium Chloride (Sodium Chloride 0.9% 10 Ml Flush Syringe) 10 ml IV BID [facility] Last Admin: 09/16/21 23:15 Dose: 10 ml Sodium Chloride (Sodium Chloride 0.9% 10 Ml Flush Syringe) 10 ml IV PRN PRN PRN Reason: LINE FLUSH Review of Systems All systems: negative (Slurred speech) Exam Past History Past Medical History: arthritis (Rheumatoid), GERD, hypertension Past Surgical History: Other (Partial hysterectomy) Social history: no significant social history Family history: no significant family history Medications and Allergies Allergies Allergy/AdvReac Type Severity Reaction Status Date / Time No Known Allergies Allergy Unverified 09/01/16 16:22 Home Medications Medication Instructions Recorded Confirmed Last Taken Type NIFEdipine [Nifedipine ER] 60 mg PO DAILY #30 tab.er.24 09/01/16 07/04/21 Unknown Rx Meclizine [Antivert] 25 mg PO TID PRN #30 tablet 01/17/19 07/04/21 Unknown Rx traMADoL [Ultram 50 MG tab] 50 mg PO Q6HR PRN #20 tablet 01/17/19 07/04/21 Unknown Rx Active Meds: Active Medications Acetaminophen (Acetaminophen 325 Mg Tab) 650 mg PO Q4H PRN PRN Reason: Pain MILD(1-3)/Fever >100.5/[facility] Aspirin (Aspirin 81 Mg Tab Chew) 81 mg PO QDAY [facility] Atorvastatin Calcium (Atorvastatin 40 Mg Tab) 40 mg PO QHS [facility] Last Admin: 09/16/21 23:35 Dose: 40 mg Bisacodyl (Bisacodyl 10 Mg Rect Supp) 10 mg LA QDAY PRN PRN Reason: Constipation Clopidogrel Bisulfate (Clopidogrel 75 Mg Tab) 75 mg PO QDAY [facility] Magnesium Hydroxide (Magnesium Hydroxide (Mom) Oral Liqd Udc) 30 ml PO Q4H PRN PRN Reason: Constipation Metoclopramide HCl (Metoclopramide 10 Mg Tab) 10 mg PO Q6H PRN PRN Reason: Nausea And Vomiting Morphine Sulfate (Morphine 2 Mg/1 Ml Inj) 2 mg IV Q4H PRN PRN Reason: Pain, Moderate (4-6) Morphine Sulfate (Morphine 4 Mg/1 Ml Inj) 4 mg IV Q4H PRN PRN Reason: Pain , Severe (7-10) Ondansetron HCl (Ondansetron 4 Mg/2 Ml Inj) 4 mg IV Q8H PRN PRN Reason: Nausea And Vomiting Promethazine HCl (Promethazine 25 Mg Rect Supp) 25 mg LA Q6H PRN PRN Reason: Nausea And Vomiting Sodium Chloride (Sodium Chloride 0.9% 10 Ml Flush Syringe) 10 ml IV BID [facility] Last Admin: 09/16/21 23:15 Dose: 10 ml Sodium Chloride (Sodium Chloride 0.9% 10 Ml Flush Syringe) 10 ml IV PRN PRN PRN Reason: LINE FLUSH Physical Examination - Vital Signs Vital Signs: Vital Signs Temp Pulse Resp BP Pulse Ox 98.1 F 100 H 18 165/99 100 09/16/21 19:02 09/16/21 19:02 09/16/21 19:02 09/16/21 19:02 09/16/21 19:02 - Constitutional General appearance: comfortable - EENT EENT: Present: PERRL, mucous membranes moist - Respiratory Respiratory: Present: lungs clear, rhonchi - Cardiovascular Cardiovascular: Present: regular rate, normal S1, normal S2 Extremities: Present: no peripheral edema bilatateraly, no clubbing, cyanosis - Gastrointestinal Gastrointestinal: Present: normoactive bowel sounds - Integumentary Integumentary: Present: normal - Neurologic Cranial nerve examination: PERRL, EOMI, intact Speech examination: other (unclear speech , possibly slight dysarthic ) Detailed motor examination: other (right poronator drift , with no sensory , and slight right lower weakness 4-/5 absent reflexes , gait not done) - Level of Consciousness 1a. Level of Consciousness: alert/keenly responsive - LOC Questions 1b. LOC Questions: answers both correctly - LOC Command 1c. LOC Commands: performs tasks correctly - Best Gaze 2. Best Gaze: normal - Visual 3. Visual: no visual loss - Facial Palsy 4. Facial Palsy: minor paralysis - Motor Arm 5a. Motor Arm Left: no drift 5b. Motor Arm Right: drift - Motor Leg 6a. Motor Leg Left: no drift 6b. Motor Leg Right: drift - Limb Ataxia 7. Limb Ataxia: absent - Sensory 8. Sensory: normal - Best Language 9. Best Language: no aphasia - Dysarthria 10. Dysarthria: mild/moderate dysarthria - Extinction and Inattention 11. Extinction/Inattention: no abnormality - Scoring Total Score: 4 Stroke Severity: Minor Stroke Results - Laboratory Findings CBC and BMP: 09/16/21 18:56 09/17/21 05:23 Abnormal Lab Findings: Abnormal Labs 09/16/21 09/16/21 09/17/21 18:56 21:48 05:23 [place] % (Auto) 11.3 H BUN 33 H 33 H Creatinine 2.4 H 2.2 H Glucose 144 H Assessment and Plan Assessment and Plan 81-year-old female with significant past medical history of hypertension, GERD seen in the emergency room today with a complaint of slurred speech. Symptoms were said to have started overnight when family noticed that patient had been drooling and her speech is not slurred. Patient denies any headache or dizziness, denies any diaphoresis. Denies any blurry vision. No nausea vomiting and no abdominal pain. Denies any fever or chills. - Patient Problems # Slurred speech noted by patient ysterday according to her lasted one hour then resolved -Initial CT is unremarkable -Initial NIh#1 -today NIH#4 -CTA brain and neck is remarkable for intra cranial atherosclerotic changes in ICA and vertebral system -she is started on ASA and Lipitor as well as Plavix -MRI brain is pending -Echo is pending -LDL,A1C are pending -ST /PT evaluate # Renal insufficiency -Appears chronic. -Consult placed to nephrology for evaluation and recommendations. -33/2.2 # Hypertension - allow for permissive HTN <200/100 for 24 hours -then gradual control of BP <150/80 # HLP -Lipitor 40 mg -LDL is pending # DVT prophylaxis -Patient placed on sequential compression device as recommended by neurology. # Full code status -Patient is full code. will follow
[2021-09-17] MEDS: ASPIRIN 81 MG TAB CHEW PO SCH (09:02)
[2021-09-17] MEDS: CLOPIDOGREL 75 MG TAB PO SCH (09:03)
[2021-09-17] MEDS ORDERED: ASPIRIN 325 MG TAB PO SCH ×2 (10:00)
--- NOTE | 2021-09-17 12:13 | Event Note ---
Date: 09/17/21 Patient seen this morning. During time of interview she had expressive aphasia and was very tearful. She denies headache, changes in vision, palpitations or chest pain. Per nursing on telemetry she has been having tachycardia to 140s. Patient is unable to recall any history of cardiac arrhythmia events or atrial fibrillation. Formal EKG was ordered to assess. Neurology evaluated patient. Awaiting echocardiogram, carotid Doppler and MRI. Medication reconciliation to follow.
[2021-09-17] MEDS ORDERED: HEPARIN 5,000 UNIT/1 ML VIAL SUB-Q SCH (14:00)
--- NOTE | 2021-09-17 16:57 | Magnetic Resonance Report ---
MRI BRAIN WITHOUT CONTRAST INDICATION / CLINICAL INFORMATION: stroke-confused. TECHNIQUE: Multiplanar, multisequence MR images of the brain were obtained. Contrast: ml, administered intravenously. COMPARISON: None available. FINDINGS: BRAIN / INTRACRANIAL CONTENTS: Ventricles and cortical sulci are normal in size and configuration giv en the patient's age of 81 years. There is no mass effect. No evidence of intracranial hemorrhage or extra-axial fluid collection is seen. Periventricular, deep white matter and subcortical white matter hyperintensities are noted compatible with microvascular ischemic change. Multifocal dilated perivas cular spaces are observed. No additional areas of abnormal brain parenchymal signal intensity are kavon ntified. There is no indication of remote cortical infarction. Diffusion weighted scans are negative. There is no indication of acute ischemic injury. Encephalomalacia seen in the inferior aspect of the left cerebellar hemisphere likely secondary to re mote left cerebellar infarction. The brainstem and cerebellum have an otherwise unremarkable appearan ce. MIDLINE STRUCTURES: Sella turcica is dilated and filled largely with CSF signal intensity material co nsistent with "empty sella turcica". No abnormalities are seen in the pineal region. CRANIOCERVICAL JUNCTION: No abnormalities are identified at the craniocervical junction. VASCULAR FLOW-VOIDS: Normal flow-voids are present within the major intracranial vessels. ORBITS: Patient motion artifact limits evaluation of the globes. Dilatation of the optic nerve sheath s is noted. These are largely filled with cerebrospinal fluid signal intensity material. SINUSES / MASTOIDS: There is no indication of inflammatory disease in the paranasal sinuses or mastoi d air cells. SCALP: Increased fat accumulation is seen within the scalp consistent with lipedematous scalp. This c an be associated with alopecia. IMPRESSION: 1. Moderate microvascular ischemic change. 2. Remote left cerebellar infarction. 3. No acute intracranial abnormality. Signer Name: Aron Cobian MD Signed: 09/17/2021 4:53 PM Workstation Name: [id number]
--- NOTE | 2021-09-17 18:06 | Vascular Lab Report ---
. DUPLEX DOPPLER ULTRASOUND CAROTID, BILATERAL INDICATION / CLINICAL INFORMATION: stroke. COMPARISON: CTA neck from 09/16/2021 FINDINGS: RIGHT CAROTID: - PLAQUE ESTIMATE (%): < 50% - CCA velocity: 45 cm/sec. - ICA peak systolic velocity: 62 cm/sec. - ICA/CCA PSV Ratio: Less than 2 Right Vertebral Artery: Antegrade flow. LEFT CAROTID: - PLAQUE ESTIMATE: < 50% - CCA velocity: 58 cm/sec. - ICA peak systolic velocity: 65 cm/sec. - ICA/CCA PSV Ratio: Less than 2 Left Vertebral Artery: Antegrade flow. IMPRESSION: 1. Right Internal Carotid Artery: Less than 50% diameter stenosis. 2. Left Internal Carotid Artery: Less than 50% diameter stenosis. Velocity criteria are extrapolated from diameter data as defined by the Society of Radiologists in Ul trasound Consensus Conference, Radiology 2003; 229;340-346. NO STENOSIS (NORMAL) * Plaque = none; ICA PSV < 125 cm/sec; ICA/CCA PSV Ratio < 2.0 <50% STENOSIS * Plaque < 50%; ICA PSV < 125 cm/sec; ICA/CCA PSV Ratio < 2.0 50-69% STENOSIS * Plaque > 50%; ICA PSV = 125-230 cm/sec; ICA/CCA PSV Ratio = 2.0-4.0 >70% BUT <100% STENOSIS * Plaque > 50%; ICA PSV > 230 cm/sec; ICA/CCA PSV Ratio > 4.0 NEAR OCCLUSION * Plaque = visible lumen; ICA PSV = high/low/none; ICA/CCA PSV Ratio = variable TOTAL OCCLUSION * Plaque = no lumen; ICA PSV = none; ICA/CCA PSV Ratio = N/A Signer Name: Ethan Rowland MD Signed: 09/17/2021 6:02 PM Workstation Name: [id number]
[2021-09-18] MEDS ORDERED: hydrALAZINE 20 MG/1 ML INJ IV ONE (02:06)
[2021-09-18] MEDS ORDERED: METOPROLOL TARTRATE 5 MG/5 ML INJ IV ONE (03:36)
--- NOTE | 2021-09-18 04:22 | Cat Scan Report ---
CT head without contrast INDICATION : Altered mental status. TECHNIQUE: Axial imaging performed from the skull apex through the skull base without the use of con trast. All CT examinations performed at this facility utilize dose modulation, iterative reconstruct ion or weight-based dosing, when appropriate, to reduce radiation dose to as low as reasonably achiev able. COMPARISON: 09/16/2021 FINDINGS: No acute intracranial hemorrhage. Prominent periventricular white matter changes are identi fied bilaterally, nonspecific but likely related to microangiopathic changes. Small right basal gangl ia lacunar infarct and prominent chronic appearing infarct of the left cerebellar hemisphere again no amanda. There is no extra-axial collection. The skull is intact. The paranasal sinuses and orbits appear unchanged IMPRESSION: No acute abnormality or change from 09/16/2021. Signer Name: Roney Munoz MD Signed: 09/18/2021 4:17 AM Workstation Name: [email or web address]
--- NOTE | 2021-09-18 07:50 | Progress Note ---
Assessment and Plan Assessment and plan: #Slurred speech #Remote left cerebellar infarct -intitial and repeat CT head unremarkable -MRI brain is remarkable for remote left cerebellar infarct -TTE: EF 50-55% with dilated both atria, No PFO seen -Neurology following, assistance appreciated -PT/OT evaluation -ST evaluation- diet started -continue ASA, statin, plavix #Atrial fibrillation, uncontrolled -unclear if chronic or acute, with patient and unable to provide clinical information -Patient reported to take warfarin for anticoagulation, will start heparin drip with warfarin bridging -Telemetry -Metoprolol 12.5 mg twice daily and amiodarone drip started -Cardiology consulted, assistance appreciated #Renal insufficiency Appears chronic. Consult placed to nephrology for evaluation and recommendations. #Hypertension -s/p permissive HTN per Neurology recommendations -will resume BP medications as tolerated/needed -goal SBP <160 #Hyperlipidemia -Lipid panel ordered -Continue statin #Advance care planning -Disease education, care plan, diagnosis, prognosis discussed with her Mari and the patient. Family understands and acknowledges current plan. -Time: +30 minutes History Interval history: Patient with improved mentation and speech this morning. Patient reports feeling much better than she did yesterday. Unable to recall if she ever had any cardiac issues. No complaints at this time. Hospitalist Physical - Physical exam Narrative exam: GENERAL: Well-developed well-nourished. In no acute distress. HEENT: Normocephalic. Atraumatic. NECK: Supple. CHEST/LUNGS: CTAB on room air HEART/CARDIOVASCULAR: RRR. No murmur, rubs or gallops appreciated. ABDOMEN: +BS. NT/ND. SKIN: No rashes noted. NEURO: No focal motor deficit. Follows all commands. EXTREMITIES: Bilateral lower extremity tender to palpation. No edema noted. PSYCH: Cooperative. - Constitutional Vitals: Temp Pulse Resp BP Pulse Ox 98.7 F 138 H 18 109/73 99 09/17/21 19:47 09/18/21 04:18 09/18/21 04:18 09/18/21 04:18 09/18/21 04:18 General appearance: Present: no acute distress, well-nourished HEART Score - HEART Score Troponin: Troponin T < 0.010 ng/mL (0.00-0.029) 09/16/21 18:56 Results - Labs CBC & Chem 7: 09/18/21 08:55 09/18/21 07:42 Labs: Laboratory Last Values WBC 5.3 K/mm3 (4.5-11.0) 09/16/21 18:56 RBC 3.84 M/mm3 (3.65-5.03) 09/16/21 18:56 Hgb 10.8 gm/dl (10.1-14.3) 09/16/21 18:56 Hct 33.7 % (30.3-42.9) 09/16/21 18:56 MCV 88 fl (79-97) 09/16/21 18:56 MCH 28 pg (28-32) 09/16/21 18:56 MCHC 32 % (30-34) 09/16/21 18:56 RDW 14.3 % (13.2-15.2) 09/16/21 18:56 Plt Count 238 K/mm3 (140-440) 09/16/21 18:56 Lymph % (Auto) 24.6 % (13.4-35.0) 09/16/21 18:56 [place] % (Auto) 11.3 % (0.0-7.3) H 09/16/21 18:56 Eos % (Auto) 1.2 % (0.0-4.3) 09/16/21 18:56 Baso % (Auto) 0.8 % (0.0-1.8) 09/16/21 18:56 Lymph # (Auto) 1.3 K/mm3 (1.2-5.4) 09/16/21 18:56 [place] # (Auto) 0.6 K/mm3 (0.0-0.8) 09/16/21 18:56 Eos # (Auto) 0.1 K/mm3 (0.0-0.4) 09/16/21 18:56 Baso # (Auto) 0.0 K/mm3 (0.0-0.1) 09/16/21 18:56 Seg Neutrophils % 62.1 % (40.0-70.0) 09/16/21 18:56 Seg Neutrophils # 3.3 K/mm3 (1.8-7.7) 09/16/21 18:56 PT 14.9 Sec. (12.2-14.9) 09/16/21 18:56 INR 1.05 (0.87-1.13) 09/16/21 18:56 APTT 26.5 Sec. (24.2-36.6) 09/16/21 18:56 Thrombin Time 18.5 Sec. (15.1-19.6) 09/16/21 18:56 Sodium 142 mmol/L (137-145) 09/17/21 05:23 Potassium 3.6 mmol/L (3.6-5.0) 09/17/21 05:23 Chloride 101.6 mmol/L (98-107) 09/17/21 05:23 Carbon Dioxide 24 mmol/L (22-30) 09/17/21 05:23 Anion Gap 20 mmol/L 09/17/21 05:23 BUN 33 mg/dL (7-17) H 09/17/21 05:23 Creatinine 2.2 mg/dL (0.6-1.2) H 09/17/21 05:23 Estimated GFR 26 ml/min 09/17/21 05:23 BUN/Creatinine Ratio 15 % 09/17/21 05:23 Glucose 144 mg/dL (65-100) H 09/17/21 05:23 POC Glucose 105 mg/dL (70-105) 09/18/21 03:17 Calcium 9.1 mg/dL (8.4-10.2) 09/17/21 05:23 Total Creatine Kinase 124 units/L (30-135) 09/16/21 18:56 CK-MB (CK-2) 1.5 ng/mL (0.0-4.0) 09/16/21 18:56 CK-MB (CK-2) Rel Index 1.2 (0-4) 09/16/21 18:56 Troponin T < 0.010 ng/mL (0.00-0.029) 09/16/21 18:56 Nelson/IV: Voiding Method Toilet Active Medications - Current Medications Current Medications: Generic Name Dose Route Start Last Admin Trade Name Freq PRN Reason Stop Dose Admin Acetaminophen 650 mg 09/16/21 21:58 Acetaminophen 325 Mg Tab PO Q4H PRN Pain MILD(1-3)/Fever >100.5/GUERRA Aspirin 81 mg 09/17/21 10:00 09/17/21 09:02 Aspirin 81 Mg Tab Chew PO 81 mg QDAY ALEIDA Administration Atorvastatin Calcium 40 mg 09/16/21 22:00 09/17/21 21:56 Atorvastatin 40 Mg Tab PO 40 mg QHS ALEIDA Administration Bisacodyl 10 mg 09/16/21 21:58 Bisacodyl 10 Mg Rect Supp [place] QDAY PRN Constipation Clopidogrel Bisulfate 75 mg 09/17/21 10:00 09/17/21 09:03 Clopidogrel 75 Mg Tab PO 75 mg QDAY ALEIDA Administration Heparin Sodium (Porcine) 3,000 unit 09/18/21 07:47 Heparin 10,000 Units/10 Ml Vial 40 unit/kg (3000 unit) IV Q6H PRN Anti-Xa Assay < 0.1 units/ml Heparin Sodium/Sodium Chloride 25,000 unit in 500 mls @ 22.68 mls/hr 09/18/21 08:00 Heparin/ 0.45% Nacl-25,000 Unit/500 Ml IV TITR [facility] Protocol 15 UNITS/KG/HR Magnesium Hydroxide 30 ml 09/16/21 21:58 Magnesium Hydroxide (Mom) Oral Liqd Udc PO Q4H PRN Constipation Metoclopramide HCl 10 mg 09/16/21 21:58 Metoclopramide 10 Mg Tab PO Q6H PRN Nausea And Vomiting Metoprolol Tartrate 12.5 mg 09/18/21 10:00 Metoprolol Tartrate 25 Mg Tab PO BID [facility] Morphine Sulfate 2 mg 09/16/21 21:58 Morphine 2 Mg/1 Ml Inj IV Q4H PRN Pain, Moderate (4-6) Morphine Sulfate 4 mg 09/16/21 21:58 Morphine 4 Mg/1 Ml Inj IV Q4H PRN Pain , Severe (7-10) Ondansetron HCl 4 mg 09/16/21 21:58 Ondansetron 4 Mg/2 Ml Inj IV Q8H PRN Nausea And Vomiting Promethazine HCl 25 mg 09/16/21 21:58 Promethazine 25 Mg Rect Supp [place] Q6H PRN Nausea And Vomiting Sodium Chloride 10 ml 09/16/21 22:00 09/17/21 21:56 Sodium Chloride 0.9% 10 Ml Flush Syringe IV 10 ml BID ALEIDA Administration Sodium Chloride 10 ml 09/16/21 21:58 Sodium Chloride 0.9% 10 Ml Flush Syringe IV PRN PRN LINE FLUSH Nutrition/Malnutrition Assess - Dietary Evaluation Nutrition/Malnutrition Findings: Nutrition Notes Start: 09/17/21 13:46 Freq: Status: Active Protocol: Document 09/17/21 13:46 LOKESH (Rec: 09/17/21 14:14 LOKESH [id number]) Nutrition Notes Need for Assessment generated from: MD Order,Education Initial or Follow up Assessment Current Diagnosis Hypertension Other Pertinent Diagnosis Slurred Speech, Possible CVA, Possible CKD, RA, GERD. Current Diet Cardiac Diet (since B 09/17), NPO (since D 09/17). Labs/Tests 09/17: BUN 33, Crea 2.2, Glu 144. Pertinent Medications 09/17: Nutritionally unremarkable. 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 Weight Status Overweight Subjective/Other Information RD consult for nutrition education. Pt still in critical condition , not a candidate for Nutrition Education at the time, will assess feasibility on F/U. Pt on Room Air, O2 saturation @ 95%, according to Physical Assessment History notes. Pt has missing teeth, according to Physical Assessment History notes. Pt's still ongoing dignosis for CVA, but symptoms are worsening; according to EQUINE MANAGER note, NPO is recommended at the time. I stopped the diet order. Pt currently on NPO. EQUINE MANAGER note on 09/17/21 12:06: Patient presents with an oral/ pharyngeal phase dysphagia with immediate aspiration with thins, delayed swallow reflex , poor laryngeal elevation and consistent throat clearing with nectar and pureed consistences. Recommend NPO. Informed the patient's nurse. Addendum: Cognitive function for problem solving and executive function was not assessed due to the severity of the patient's dysarthric speech. Patient demonstrates reduced labial movement with poor articulation skills. Per the patient's nurse, speech has worsened since this am. Percent of energy/protein needs met: Pt currently on NPO. Burn Absent Trauma Absent GI Symptoms None Difficulty In Swallowing Food Allergy No Skin Integrity/Comment Assessment WNL. Current % PO Other Minimum of two criteria No #1 Nutrition Diagnosis Swallowing difficulty Etiology Possible CVA. As Evidenced by Signs and Symptoms EQUINE MANAGER note on 09/17/21 12:06: Patient presents with an oral/ pharyngeal phase dysphagia with immediate aspiration with thins, delayed swallow reflex , poor laryngeal elevation and consistent throat clearing with nectar and pureed consistences. Recommend NPO. Informed the patient's nurse. Addendum: Cognitive function for problem solving and executive function was not assessed due to the severity of the patient's dysarthric speech. Patient demonstrates reduced labial movement with poor articulation skills. Per the patient's nurse, speech has worsened since this am. Is patient on ventilator? No Is Patient Ambulatory and/or Out of Bed Yes REE-([place]-ambulatory/OOB) [ 1540.669 NUTR.[id number]] Kcal/Kg value to use for calculation 18 Approximate Energy Requirements Using 1361 kcal/Kg Calculation Used for Recommendations Kcal/kg Additional Notes Protein: 0.6-0.8 g/Kg ABW; 46- 61 g/day. Fluids: 1 ml/Kcal, or as per MD. Nutrition Intervention Change Diet Order: Stop Cardiac Diet, as per EQUINE MANAGER recommendation. Goal #1 Adjust the dietary intervention to better serve Pt's needs and clinical conditions during LOS. Follow-Up By: 09/19/21 Additional Comments Nutrition education will be provided on F/U, if feasible. When pertinent, start monitoring swallow capabilities, food tolerance, %PO intake of meals, and BM.
--- NOTE | 2021-09-18 07:52 | Progress Note ---
Assessment and Plan 1. Acute kidney injury: Acute kidney injury superimposed on CKD. Renal US negative. Baseline CKD. Monitor renal function. Creatinine level is same as yesterday. Avoid nephrotoxic agents. Meds dosage based on GFR. 2. FEN: Monitor lytes and volume status. 3. Slurred speech: Initial CT unremarkable. CTA brain and neck is remarkable for intra cranial atherosclerotic changes in ICA and vertebral system. ASA, Lipitor and Plavix. MRI brain is pending. Echo EF 50-55%. Neuro consult. 4. A.fib with RVR: Cardiology consult. 5. Hypertension: Permissive HTN <200/100 for 24 hours, then gradual control of BP <150/80. Subjective: Patient was seen and examined at the bedside. Examination: General appearance: well-developed, appears stated age, no distress HEENT: atraumatic, pupils reacting to light Neck: trachea midline Respiratory: ctab Heart: S1S2, irregular, no murmur Abdomen: soft, bowel sounds heard, NT Integumentary: no obvious rash Neurologic: alert, some confusion noted, able to move extremities Ext: no edema noted Subjective Date of service: 09/18/21 Objective - Vital Signs Vital signs: Vital Signs - 12hr 09/17/21 09/17/21 09/17/21 20:44 20:46 22:41 Pulse Rate 120 H Respiratory Rate Blood Pressure Blood Pressure [Left] O2 Sat by Pulse 95 97 Oximetry 09/17/21 09/18/21 09/18/21 23:47 03:15 03:25 Pulse Rate 87 138 H 109 H Respiratory 18 18 Rate Blood Pressure 193/110 Blood Pressure 109/73 129/92 [Left] O2 Sat by Pulse 98 99 99 Oximetry - Lab 09/18/21 08:55 09/19/21 05:37 Most recent lab results Calcium 9.1 mg/dL (8.4-10.2) 09/17/21 05:23 Medications & Allergies - Medications Allergies/Adverse Reactions: Allergies No Known Allergies Allergy (Unverified 09/01/16 16:22) Home Medications: Home Medications Medication Instructions Recorded Confirmed Last Taken Type NIFEdipine [Nifedipine ER] 60 mg PO DAILY #30 tab.er.24 09/01/16 07/04/21 Unknown Rx Meclizine [Antivert] 25 mg PO TID PRN #30 tablet 01/17/19 07/04/21 Unknown Rx traMADoL [Ultram 50 MG tab] 50 mg PO Q6HR PRN #20 tablet 01/17/19 07/04/21 Unknown Rx Active Medications: Generic Name Dose Route Start Last Admin Trade Name Freq PRN Reason Stop Dose Admin Acetaminophen 650 mg 09/16/21 21:58 Acetaminophen 325 Mg Tab PO Q4H PRN Pain MILD(1-3)/Fever >100.5/GUERRA Aspirin 81 mg 09/17/21 10:00 09/17/21 09:02 Aspirin 81 Mg Tab Chew PO 81 mg QDAY ALEIDA Administration Atorvastatin Calcium 40 mg 09/16/21 22:00 09/17/21 21:56 Atorvastatin 40 Mg Tab PO 40 mg QHS ALEIDA Administration Bisacodyl 10 mg 09/16/21 21:58 Bisacodyl 10 Mg Rect Supp [place] QDAY PRN Constipation Clopidogrel Bisulfate 75 mg 09/17/21 10:00 09/17/21 09:03 Clopidogrel 75 Mg Tab PO 75 mg QDAY ALEIDA Administration Heparin Sodium (Porcine) 3,000 unit 09/18/21 07:47 Heparin 10,000 Units/10 Ml Vial 40 unit/kg (3000 unit) IV Q6H PRN Anti-Xa Assay < 0.1 units/ml Heparin Sodium/Sodium Chloride 25,000 unit in 500 mls @ 22.68 mls/hr 09/18/21 08:00 Heparin/ 0.45% Nacl-25,000 Unit/500 Ml IV TITR [facility] Protocol 15 UNITS/KG/HR Magnesium Hydroxide 30 ml 09/16/21 21:58 Magnesium Hydroxide (Mom) Oral Liqd Udc PO Q4H PRN Constipation Metoclopramide HCl 10 mg 09/16/21 21:58 Metoclopramide 10 Mg Tab PO Q6H PRN Nausea And Vomiting Metoprolol Tartrate 12.5 mg 09/18/21 10:00 Metoprolol Tartrate 25 Mg Tab PO BID ALEIDA Morphine Sulfate 2 mg 09/16/21 21:58 Morphine 2 Mg/1 Ml Inj IV Q4H PRN Pain, Moderate (4-6) Morphine Sulfate 4 mg 09/16/21 21:58 Morphine 4 Mg/1 Ml Inj IV Q4H PRN Pain , Severe (7-10) Ondansetron HCl 4 mg 09/16/21 21:58 Ondansetron 4 Mg/2 Ml Inj IV Q8H PRN Nausea And Vomiting Promethazine HCl 25 mg 09/16/21 21:58 Promethazine 25 Mg Rect Supp [place] Q6H PRN Nausea And Vomiting Sodium Chloride 10 ml 09/16/21 22:00 09/17/21 21:56 Sodium Chloride 0.9% 10 Ml Flush Syringe IV 10 ml BID ALEIDA Administration Sodium Chloride 10 ml 09/16/21 21:58 Sodium Chloride 0.9% 10 Ml Flush Syringe IV PRN PRN LINE FLUSH
[2021-09-18 08:53] LABS: Chol/HDL Ratio 2.87 %
[2021-09-18] MEDS ORDERED: HEPARIN 10,000 UNITS/10 ML VIAL IV PRN (09:00)
[2021-09-18 10:05] LABS: Hematocrit 35.3 % (30.3-42.9); Hemoglobin 11.1 gm/dl (10.1-14.3)
--- NOTE | 2021-09-18 10:08 | Ultrasound Report ---
. ULTRASOUND RENAL INDICATION / CLINICAL INFORMATION: Acute renal failure.. COMPARISON: None available. FINDINGS: RIGHT KIDNEY: Length = 9.2 cm. - Echogenicity: Normal. - Cortical Thickness: Normal. - Hydronephrosis: None. - Cyst or mass: Right renal cyst measures 1.8 x 1.6 cm - Stones: None seen. LEFT KIDNEY: Length = 8.6 cm. - Echogenicity: Normal. - Cortical Thickness: Normal. - Hydronephrosis: None. - Cyst or mass: No significant abnormality. - Stones: None seen. URINARY BLADDER: No significant abnormality. FREE FLUID: None. ADDITIONAL FINDINGS: None. IMPRESSION: 1. Right renal cyst . Mild prominence of right renal pelvis Signer Name: John Mulligan MD Signed: 09/18/2021 10:04 AM Workstation Name: [id number]
--- NOTE | 2021-09-18 10:18 | Progress Note ---
Assessment and Plan Assessment and Plan 81-year-old female with significant past medical history of hypertension, GERD seen in the emergency room today with a complaint of slurred speech. Symptoms were said to have started overnight when family noticed that patient had been drooling and her speech is not slurred. Patient denies any headache or dizziness, denies any diaphoresis. Denies any blurry vision. No nausea vomiting and no abdominal pain. Denies any fever or chills. - Patient Problems # Slurred speech noted by patient yesterday according to her lasted one hour then resolved -Initial CT is unremarkable -Initial NIH#1 -CTA brain and neck is remarkable for intra cranial atherosclerotic changes in ICA and vertebral system -she is started on ASA and Lipitor as well as Plavix -MRI brain is remarkable for remote left cerebellar infarct -Echo is with EF#50-55% with dilated both atria,No PFO -LDL,A1C are pending -ST /PT evaluate # Renal insufficiency -Appears chronic. -Consult placed to nephrology for evaluation and recommendations. -33/2.2 # Hypertension - allow for permissive HTN <200/100 for 24 hours -then gradual control of BP <150/80 # HLP -Lipitor 40 mg -LDL is pending # DVT prophylaxis -Patient placed on sequential compression device as recommended by neurology. # Full code status -Patient is full code. will follow Subjective Date of service: 09/18/21 Principal diagnosis: slurred speech Interval history: pt. is more alert interactive speech improved , no clear weakness is noted but slight give away right side !! MRI is remarkable for remote left cerbellar infarct, echo 50-55% with LVH and bilateral dilated atria with no PFO is noted LDL is pending Objective - Vital Sign Vital Signs - 12hr 09/17/21 09/17/21 09/18/21 22:41 23:47 03:15 Temperature Pulse Rate 87 138 H Respiratory 18 Rate Blood Pressure 193/110 Blood Pressure 109/73 [Left] O2 Sat by Pulse 97 98 99 Oximetry 09/18/21 09/18/21 03:25 07:40 Temperature 98.0 F Pulse Rate 109 H 112 H Respiratory 18 18 Rate Blood Pressure 162/104 Blood Pressure 129/92 [Left] O2 Sat by Pulse 99 100 Oximetry - General Apperance Constitutional: comfortable - EENT EENT: PERRL, mucous membranes moist - Respiratory Respiratory: lungs clear, normal breath sounds - Cardiovascular Cardiovascular: regular rate, normal S1, normal S2 Extremities: no peripheral edema bilat, no clubbing, cyanosis - Gastrointestinal Gastrointestinal: normoactive bowel sounds - Integumentary Integumentary: normal - Neurologic Cranial nerve examination: PERRL, EOMI, intact Speech examination: intact Detailed motor examination: grossly full strength in - Laboratory Findings CBC and BMP: 09/18/21 08:55 09/18/21 07:42 Abnormal Lab Findings: Abnormal Labs 09/16/21 09/16/21 09/17/21 18:56 21:48 05:23 [place] % (Auto) 11.3 H Potassium BUN 33 H 33 H Creatinine 2.4 H 2.2 H Glucose 144 H 09/18/21 07:42 [place] % (Auto) Potassium 3.5 L BUN 33 H Creatinine 2.2 H Glucose 101 H
[2021-09-18] MEDS: CLOPIDOGREL 75 MG TAB PO SCH (10:38)
[2021-09-18] MEDS: ASPIRIN 81 MG TAB CHEW PO SCH (10:39)
[2021-09-18] MEDS: METOPROLOL TARTRATE 25 MG TAB PO SCH ×2 (10:41→21:50)
[2021-09-18 10:51] LABS: INR 1.03 (0.87-1.13); Partial Thromboplastin Time 25.8 Sec. (24.2-36.6)
[2021-09-18] MEDS ORDERED: AMIODARONE 150 MG in DEXTROSE 5% IN WATER 97 ML IV ONE (11:35)
[2021-09-18] MEDS: HEPARIN/ 0.45% NACL DRIP 25,000 UNIT/500 ML BAG IV SCH (11:48)
[2021-09-18] MEDS ORDERED: AMIODARONE 900 MG in DEXTROSE 5% IN WATER 482 ML IV SCH (12:00)
--- NOTE | 2021-09-18 14:40 | Consultation ---
History of Present Illness Consult date: 09/18/21 Requesting physician: DANIEL SAWYER Consult reason: atrial fibrillation History of present illness: Patient is a 81-year-old female with past medical history of hypertension, GERD, and history of A. fib. Who is brought to the ED on 09/16/2021 for neurodeficits. History is taken from chart due to patient being unable to provide history due to mental status. Per documentation patient was found to have been drooling and having slurred speech before being brought to the ED. Hospital course has shown patient to have CVA. ROS unclear due to at time of interview when asking patient about current symptoms patient would not reply stating that her mind is blurry. Patient is previously unknown to our practice. Cardiology is consulted for A. fib Past History Past Medical History: atrial fib, arthritis (Rheumatoid), GERD, hypertension Past Surgical History: Other (Partial hysterectomy) Social history: no significant social history Family history: no significant family history Medications and Allergies Allergies Allergy/AdvReac Type Severity Reaction Status Date / Time No Known Allergies Allergy Unverified 09/01/16 16:22 Home Medications Medication Instructions Recorded Confirmed Last Taken Type NIFEdipine [Nifedipine ER] 60 mg PO DAILY #30 tab.er.24 09/01/16 07/04/21 Unknown Rx Meclizine [Antivert] 25 mg PO TID PRN #30 tablet 01/17/19 07/04/21 Unknown Rx traMADoL [Ultram 50 MG tab] 50 mg PO Q6HR PRN #20 tablet 01/17/19 07/04/21 Unknown Rx Active Meds: Active Medications Acetaminophen (Acetaminophen 325 Mg Tab) 650 mg PO Q4H PRN PRN Reason: Pain MILD(1-3)/Fever >100.5/GUERRA Aspirin (Aspirin 81 Mg Tab Chew) 81 mg PO QDAY [facility] Last Admin: 09/18/21 10:39 Dose: 81 mg Atorvastatin Calcium (Atorvastatin 40 Mg Tab) 40 mg PO QHS [facility] Last Admin: 09/17/21 21:56 Dose: 40 mg Bisacodyl (Bisacodyl 10 Mg Rect Supp) 10 mg SD QDAY PRN PRN Reason: Constipation Clopidogrel Bisulfate (Clopidogrel 75 Mg Tab) 75 mg PO QDAY [facility] Last Admin: 09/18/21 10:38 Dose: 75 mg Heparin Sodium (Porcine) (Heparin 10,000 Units/10 Ml Vial) 3,000 unit 40 un it/kg (3000 unit) IV Q6H PRN PRN Reason: Anti-Xa Assay < 0.1 units/ml Heparin Sodium/Sodium Chloride (Heparin/ 0.45% Nacl-25,000 Unit/500 Ml) 25,000 unit in 500 mls @ 23 mls/hr IV TITR ALEIDA; Protocol Last Admin: 09/18/21 11:48 Dose: 1,150 units/hr, 23 mls/hr Amiodarone HCl 900 mg/ (Dextrose) 500 mls @ 33.333 mls/hr IV DIRECT ALEIDA; Protocol Last Admin: 09/18/21 14:25 Dose: 1 mg/min, 33.333 mls/hr Magnesium Hydroxide (Magnesium Hydroxide (Mom) Oral Liqd Udc) 30 ml PO Q4H PRN PRN Reason: Constipation Metoclopramide HCl (Metoclopramide 10 Mg Tab) 10 mg PO Q6H PRN PRN Reason: Nausea And Vomiting Metoprolol Tartrate (Metoprolol Tartrate 25 Mg Tab) 12.5 mg PO BID [facility] Last Admin: 09/18/21 10:41 Dose: 12.5 mg Morphine Sulfate (Morphine 2 Mg/1 Ml Inj) 2 mg IV Q4H PRN PRN Reason: Pain, Moderate (4-6) Morphine Sulfate (Morphine 4 Mg/1 Ml Inj) 4 mg IV Q4H PRN PRN Reason: Pain , Severe (7-10) Ondansetron HCl (Ondansetron 4 Mg/2 Ml Inj) 4 mg IV Q8H PRN PRN Reason: Nausea And Vomiting Promethazine HCl (Promethazine 25 Mg Rect Supp) 25 mg SD Q6H PRN PRN Reason: Nausea And Vomiting Sodium Chloride (Sodium Chloride 0.9% 10 Ml Flush Syringe) 10 ml IV BID [facility] Last Admin: 09/18/21 13:41 Dose: 10 ml Sodium Chloride (Sodium Chloride 0.9% 10 Ml Flush Syringe) 10 ml IV PRN PRN PRN Reason: LINE FLUSH Last Admin: 09/18/21 10:42 Dose: 10 ml Warfarin Sodium (Warfarin 5 Mg Tab) 5 mg PO DAILY@1700 [facility] Review of Systems ROS unobtainable: due to mental status Physical Examination Vital Signs Temp Pulse Resp BP Pulse Ox 98.1 F 100 H 18 165/99 100 09/16/21 19:02 09/16/21 19:02 09/16/21 19:02 09/16/21 19:02 09/16/21 19:02 General appearance: no acute distress HEENT: Positive: Normocephaly Neck: Positive: trachea midline Cardiac: Positive: irregularly irregular, Tachycardia Lungs: Positive: Normal Breath Sounds Neuro: Positive: Other (MS) Abdomen: Positive: Soft Skin: Negative: Rash, Suspicious Lesions, Ulceration Extremities: Present: upper extr. pulses. Absent: edema Results 09/18/21 08:55 09/18/21 07:42 Cardiac Enzymes 09/16/21 09/16/21 09/16/21 Range/Units 18:56 18:56 18:56 WBC 5.3 (4.5-11.0) K/mm3 RBC 3.84 (3.65-5.03) M/mm3 Hgb 10.8 (10.1-14.3) gm/dl Hct 33.7 (30.3-42.9) % MCV 88 (79-97) fl MCH 28 (28-32) pg MCHC 32 (30-34) % RDW 14.3 (13.2-15.2) % Plt Count 238 (140-440) K/mm3 Lymph % (Auto) 24.6 (13.4-35.0) % [place] % (Auto) 11.3 H (0.0-7.3) % Eos % (Auto) 1.2 (0.0-4.3) % Baso % (Auto) 0.8 (0.0-1.8) % Lymph # (Auto) 1.3 (1.2-5.4) K/mm3 [place] # (Auto) 0.6 (0.0-0.8) K/mm3 Eos # (Auto) 0.1 (0.0-0.4) K/mm3 Baso # (Auto) 0.0 (0.0-0.1) K/mm3 Seg Neutrophils % 62.1 (40.0-70.0) % Seg Neutrophils # 3.3 (1.8-7.7) K/mm3 PT 14.9 (12.2-14.9) Sec. INR 1.05 (0.87-1.13) APTT 26.5 (24.2-36.6) Sec. Thrombin Time 18.5 (15.1-19.6) Sec. Sodium (137-145) mmol/L Potassium (3.6-5.0) mmol/L Chloride (98-107) mmol/L Carbon Dioxide (22-30) mmol/L Anion Gap mmol/L BUN (7-17) mg/dL Creatinine (0.6-1.2) mg/dL Estimated GFR ml/min BUN/Creatinine Ratio % Glucose (65-100) mg/dL POC Glucose (70-105) mg/dL Calcium (8.4-10.2) mg/dL Total Creatine Kinase 124 (30-135) units/L CK-MB (CK-2) Rel Index 1.2 (0-4) Troponin T < 0.010 (0.00-0.029) ng/mL Triglycerides (2-149) mg/dL Cholesterol (50-199) mg/dL LDL Cholesterol Direct (50-130) mg/dL HDL Cholesterol (40-59) mg/dL Cholesterol/HDL Ratio % 09/16/21 09/17/21 09/18/21 Range/Units 21:48 05:23 03:17 WBC (4.5-11.0) K/mm3 RBC (3.65-5.03) M/mm3 Hgb (10.1-14.3) gm/dl Hct (30.3-42.9) % MCV (79-97) fl MCH (28-32) pg MCHC (30-34) % RDW (13.2-15.2) % Plt Count (140-440) K/mm3 Lymph % (Auto) (13.4-35.0) % [place] % (Auto) (0.0-7.3) % Eos % (Auto) (0.0-4.3) % Baso % (Auto) (0.0-1.8) % Lymph # (Auto) (1.2-5.4) K/mm3 [place] # (Auto) (0.0-0.8) K/mm3 Eos # (Auto) (0.0-0.4) K/mm3 Baso # (Auto) (0.0-0.1) K/mm3 Seg Neutrophils % (40.0-70.0) % Seg Neutrophils # (1.8-7.7) K/mm3 PT (12.2-14.9) Sec. INR (0.87-1.13) APTT (24.2-36.6) Sec. Thrombin Time (15.1-19.6) Sec. Sodium 141 142 (137-145) mmol/L Potassium 3.9 3.6 (3.6-5.0) mmol/L Chloride 100.3 101.6 (98-107) mmol/L Carbon Dioxide 25 24 (22-30) mmol/L Anion Gap 20 20 mmol/L BUN 33 H 33 H (7-17) mg/dL Creatinine 2.4 H 2.2 H (0.6-1.2) mg/dL Estimated GFR 23 26 ml/min BUN/Creatinine Ratio 14 15 % Glucose 92 144 H (65-100) mg/dL POC Glucose 105 (70-105) mg/dL Calcium 8.9 9.1 (8.4-10.2) mg/dL Total Creatine Kinase (30-135) units/L CK-MB (CK-2) Rel Index (0-4) Troponin T (0.00-0.029) ng/mL Triglycerides (2-149) mg/dL Cholesterol (50-199) mg/dL LDL Cholesterol Direct (50-130) mg/dL HDL Cholesterol (40-59) mg/dL Cholesterol/HDL Ratio % 09/18/21 09/18/21 09/18/21 Range/Units 07:42 08:55 10:32 WBC (4.5-11.0) K/mm3 RBC (3.65-5.03) M/mm3 Hgb 11.1 (10.1-14.3) gm/dl Hct 35.3 (30.3-42.9) % MCV (79-97) fl MCH (28-32) pg MCHC (30-34) % RDW (13.2-15.2) % Plt Count 235 (140-440) K/mm3 Lymph % (Auto) (13.4-35.0) % [place] % (Auto) (0.0-7.3) % Eos % (Auto) (0.0-4.3) % Baso % (Auto) (0.0-1.8) % Lymph # (Auto) (1.2-5.4) K/mm3 [place] # (Auto) (0.0-0.8) K/mm3 Eos # (Auto) (0.0-0.4) K/mm3 Baso # (Auto) (0.0-0.1) K/mm3 Seg Neutrophils % (40.0-70.0) % Seg Neutrophils # (1.8-7.7) K/mm3 PT 14.6 (12.2-14.9) Sec. INR 1.03 (0.87-1.13) APTT 25.8 (24.2-36.6) Sec. Thrombin Time (15.1-19.6) Sec. Sodium 144 (137-145) mmol/L Potassium 3.5 L (3.6-5.0) mmol/L Chloride 104.3 (98-107) mmol/L Carbon Dioxide 24 (22-30) mmol/L Anion Gap 19 mmol/L BUN 33 H (7-17) mg/dL Creatinine 2.2 H (0.6-1.2) mg/dL Estimated GFR 26 ml/min BUN/Creatinine Ratio 15 % Glucose 101 H (65-100) mg/dL POC Glucose (70-105) mg/dL Calcium 9.0 (8.4-10.2) mg/dL Total Creatine Kinase (30-135) units/L CK-MB (CK-2) Rel Index (0-4) Troponin T (0.00-0.029) ng/mL Triglycerides 77 (2-149) mg/dL Cholesterol 135 (50-199) mg/dL LDL Cholesterol Direct 70 (50-130) mg/dL HDL Cholesterol 47 (40-59) mg/dL Cholesterol/HDL Ratio 2.87 % Coagulation 09/18/21 Range/Units 10:32 PT 14.6 (12.2-14.9) Sec. INR 1.03 (0.87-1.13) APTT 25.8 (24.2-36.6) Sec. Lipids 09/18/21 Range/Units 07:42 Triglycerides 77 (2-149) mg/dL Cholesterol 135 (50-199) mg/dL HDL Cholesterol 47 (40-59) mg/dL Cholesterol/HDL Ratio 2.87 % CBC 09/18/21 Range/Units 08:55 Hgb 11.1 (10.1-14.3) gm/dl Hct 35.3 (30.3-42.9) % Plt Count 235 (140-440) K/mm3 Comprehensive Metabolic Panel 09/18/21 Range/Units 07:42 Sodium 144 (137-145) mmol/L Potassium 3.5 L (3.6-5.0) mmol/L Chloride 104.3 (98-107) mmol/L Carbon Dioxide 24 (22-30) mmol/L BUN 33 H (7-17) mg/dL Creatinine 2.2 H (0.6-1.2) mg/dL Glucose 101 H (65-100) mg/dL Calcium 9.0 (8.4-10.2) mg/dL - Imaging and Cardiology Echo: report reviewed EKG interpretations - Telemetry EKG Rhythm: Atrial Fibrillation - EKG Supraventricular dysrhythmia: atrial fibrillation Assessment and Plan Patient is a 81-year-old female with past medical history of hypertension, GERD, and history of A. fib. Who is brought to the ED on 09/16/2021 for neurodeficits. CVA-neurology following A. fib CKD vs Renal insufficientcy- Nephrology following Hypertension Limited echo 09/16/2021-EF 50 to 55%. Moderate concentric LVH. Left atrium is moderately dilated. Right atrium is moderately dilated. Bubble study does not demonstrate PFO no pericardial effusion. Plan: EKG shows A. fib rate 103 with LVH. No acute ischemic changes EKG does not appear significantly different from prior EKG on 07/05/2021. At that time patient had A. fib rate 95 with LVH Due to patient's history of A. fib unclear if patient was on anticoagulation previously. Asked patient's family if patient was previously on an ticoagulations however family was not sure of patient's past medical history and/or medications Due to A. fib recommend anticoagulation if okay with neurology. Patient currently on aspirin, Lipitor, Plavix and metoprolol Per conversation with nurse patient not tolerating p.o. medications. Patient c urrently A. fib rate trending 100s to 120s however with episodes into the 150s. We will initiate amiodarone bolus and amiodarone drip for rate control Mag pending Per neurology permissive hypertension Patient conjunction with Dr. Santiago who agrees with this plan of care - Patient Problems (1) Ischemic stroke Current Visit: Yes Status: Acute (2) Slurred speech Current Visit: Yes Status: Acute (3) Atrial fibrillation Current Visit: No Status: Acute (4) Elevated brain natriuretic peptide (BNP) level Current Visit: No Status: Acute (5) Renal insufficiency Current Visit: No Status: Acute (6) Hypertension Current Visit: No Status: Chronic Qualifiers: Hypertension type: primary hypertension Qualified Code(s): I10 - Essential (primary) hypertension
[2021-09-18] MEDS ORDERED: WARFARIN 5 MG TAB PO SCH (17:00)
--- NOTE | 2021-09-18 20:12 | Electrocardiograph Report ---
[facility] Test Date: 2021-09-16 Test Time: 21:32:13 Pat Name: DESEAN KIMBALL Department: Room: A470 1 Gender: F Surveyor Mine: ZORAIDA : 1940 Requested By: ADIA BOYD Order Number: [id number] Reading MD: Samantha Khan Measurements Intervals [place] Rate: 105 P: [place]: QRS: 40 QRSD: 86 T: 202 QT: 329 QTc: 436 Interpretive Statements Atrial fibrillation Occasional ventricular ectopy Probable LVH with secondary repol abnrm Nonspecific ST segment abnormality Compared to ECG 07/05/2021 11:03:51 Occasional ventricular ectopy is now evident Electronically Signed On 09-18-2021 20:11:54 EDT by Samantha Khan
--- NOTE | 2021-09-18 20:37 | Electrocardiograph Report ---
[facility] Test Date: 2021-09-18 Test Time: 10:48:43 Pat Name: DESEAN KIMBALL Department: Room: A470 1 Gender: F Supervisor Whipped Topping: NOAM : 1940 Requested By: DANIEL SAWYER Order Number: [id number] Reading MD: Samantha Khan Measurements Intervals [place] Rate: 93 P: [place]: QRS: 24 QRSD: 89 T: 212 QT: 351 QTc: 438 Interpretive Statements Atrial fibrillation Probable LVH with secondary repol abnrm Compared to ECG 09/16/2021 21:32:13 Ventricular ectopics no longer evident Electronically Signed On 09-18-2021 20:37:03 EDT by Samantha Khan
[2021-09-19] MEDS ORDERED: cloNIDine 0.1 MG TAB PO ONE (00:45)
[2021-09-19 06:29] LABS: INR 1.06 (0.87-1.13)
[2021-09-19 07:17] LABS: Calcium 8.4 mg/dL (8.4-10.2)
--- NOTE | 2021-09-19 07:43 | Progress Note ---
Assessment and Plan Assessment and plan: #Slurred speech #Remote left cerebellar infarct -intitial and repeat CT head unremarkable -MRI brain is remarkable for remote left cerebellar infarct -TTE: EF 50-55% with dilated both atria, No PFO seen -Neurology following, assistance appreciated -PT/OT evaluation- patient to be discharged home with -ST evaluation- diet started -continue ASA, statin, plavix #Atrial fibrillation with RVR, currently rate controlled -chronic issue -unclear if chronic or acute, with patient and unable to provide clinical information -Patient reported to take warfarin for anticoagulation, will start heparin drip with warfarin bridging -Telemetry -Metoprolol increased to 25mg twice daily and amiodarone drip discontinued -Cardiology consulted, assistance appreciated #Acute kidney injury superimposed of CKD -SCr improved to 1.9 -Nephrology following, assistance appreciated -avoid nephrotoxins and renally dose medications #Hypertension -s/p permissive HTN per Neurology recommendations -will resume BP medications as tolerated/needed -goal SBP <160 #Hyperlipidemia -Lipid panel ordered -Continue statin #Advance care planning -Disease education, care plan, diagnosis, prognosis discussed with her Mari and the patient. Family understands and acknowledges current plan. -Time: +30 minutes History Interval history: Patient with improved mentation and speech this morning. She currently has no complaints at this time. Discussed care plan with at bedside. Hospitalist Physical - Physical exam Narrative exam: GENERAL: Well-developed well-nourished. In no acute distress. HEENT: Normocephalic. Atraumatic. NECK: Supple. CHEST/LUNGS: CTAB on room air HEART/CARDIOVASCULAR: RRR. No murmur, rubs or gallops appreciated. ABDOMEN: +BS. NT/ND. SKIN: No rashes noted. NEURO: No focal motor deficit. Follows all commands. EXTREMITIES: Bilateral lower extremity tender to palpation. No edema noted. PSYCH: Cooperative. - Constitutional Vitals: Temp Pulse Resp BP Pulse Ox 98.4 F 77 19 150/98 100 09/19/21 03:52 09/19/21 03:52 09/19/21 03:52 09/19/21 03:52 09/19/21 03:52 General appearance: Present: no acute distress HEART Score - HEART Score Troponin: Troponin T < 0.010 ng/mL (0.00-0.029) 09/16/21 18:56 Results - Labs CBC & Chem 7: 09/18/21 08:55 09/19/21 05:37 Labs: Laboratory Last Values WBC 5.3 K/mm3 (4.5-11.0) 09/16/21 18:56 RBC 3.84 M/mm3 (3.65-5.03) 09/16/21 18:56 Hgb 11.1 gm/dl (10.1-14.3) 09/18/21 08:55 Hct 35.3 % (30.3-42.9) 09/18/21 08:55 MCV 88 fl (79-97) 09/16/21 18:56 MCH 28 pg (28-32) 09/16/21 18:56 MCHC 32 % (30-34) 09/16/21 18:56 RDW 14.3 % (13.2-15.2) 09/16/21 18:56 Plt Count 235 K/mm3 (140-440) 09/18/21 08:55 Lymph % (Auto) 24.6 % (13.4-35.0) 09/16/21 18:56 [place] % (Auto) 11.3 % (0.0-7.3) H 09/16/21 18:56 Eos % (Auto) 1.2 % (0.0-4.3) 09/16/21 18:56 Baso % (Auto) 0.8 % (0.0-1.8) 09/16/21 18:56 Lymph # (Auto) 1.3 K/mm3 (1.2-5.4) 09/16/21 18:56 [place] # (Auto) 0.6 K/mm3 (0.0-0.8) 09/16/21 18:56 Eos # (Auto) 0.1 K/mm3 (0.0-0.4) 09/16/21 18:56 Baso # (Auto) 0.0 K/mm3 (0.0-0.1) 09/16/21 18:56 Seg Neutrophils % 62.1 % (40.0-70.0) 09/16/21 18:56 Seg Neutrophils # 3.3 K/mm3 (1.8-7.7) 09/16/21 18:56 PT 15.0 Sec. (12.2-14.9) H 09/19/21 05:37 INR 1.06 (0.87-1.13) 09/19/21 05:37 APTT 25.8 Sec. (24.2-36.6) 09/18/21 10:32 Thrombin Time 18.5 Sec. (15.1-19.6) 09/16/21 18:56 Heparin Anti-Xa Level 1.06 U.I./ml (0.3-0.7) H 09/19/21 05:37 Sodium 142 mmol/L (137-145) 09/19/21 05:37 Potassium 3.5 mmol/L (3.6-5.0) L 09/19/21 05:37 Chloride 103.6 mmol/L (98-107) 09/19/21 05:37 Carbon Dioxide 26 mmol/L (22-30) 09/19/21 05:37 Anion Gap 16 mmol/L 09/19/21 05:37 BUN 31 mg/dL (7-17) H 09/19/21 05:37 Creatinine 1.9 mg/dL (0.6-1.2) H 09/19/21 05:37 Estimated GFR 31 ml/min 09/19/21 05:37 BUN/Creatinine Ratio 16 % 09/19/21 05:37 Glucose 106 mg/dL (65-100) H 09/19/21 05:37 POC Glucose 105 mg/dL (70-105) 09/18/21 03:17 Calcium 8.4 mg/dL (8.4-10.2) 09/19/21 05:37 Magnesium 1.60 mg/dL (1.7-2.3) L 09/18/21 16:09 Total Creatine Kinase 124 units/L (30-135) 09/16/21 18:56 CK-MB (CK-2) 1.5 ng/mL (0.0-4.0) 09/16/21 18:56 CK-MB (CK-2) Rel Index 1.2 (0-4) 09/16/21 18:56 Troponin T < 0.010 ng/mL (0.00-0.029) 09/16/21 18:56 Triglycerides 77 mg/dL (2-149) 09/18/21 07:42 Cholesterol 135 mg/dL (50-199) 09/18/21 07:42 LDL Cholesterol Direct 70 mg/dL (50-130) 09/18/21 07:42 HDL Cholesterol 47 mg/dL (40-59) 09/18/21 07:42 Cholesterol/HDL Ratio 2.87 % 09/18/21 07:42 Nelson/IV: Voiding Method Toilet Active Medications - Current Medications Current Medications: Generic Name Dose Route Start Last Admin Trade Name Freq PRN Reason Stop Dose Admin Acetaminophen 650 mg 09/16/21 21:58 Acetaminophen 325 Mg Tab PO Q4H PRN Pain MILD(1-3)/Fever >100.5/GUERRA Aspirin 81 mg 09/17/21 10:00 09/18/21 10:39 Aspirin 81 Mg Tab Chew PO 81 mg QDAY ALEIDA Administration Atorvastatin Calcium 40 mg 09/16/21 22:00 09/18/21 21:50 Atorvastatin 40 Mg Tab PO 40 mg QHS ALEIDA Administration Bisacodyl 10 mg 09/16/21 21:58 Bisacodyl 10 Mg Rect Supp [place] QDAY PRN Constipation Clopidogrel Bisulfate 75 mg 09/17/21 10:00 09/18/21 10:38 Clopidogrel 75 Mg Tab PO 75 mg QDAY ALEIDA Administration Heparin Sodium (Porcine) 3,000 unit 09/18/21 09:00 Heparin 10,000 Units/10 Ml Vial 40 unit/kg (3000 unit) IV Q6H PRN Anti-Xa Assay < 0.1 units/ml Heparin Sodium/Sodium Chloride 25,000 unit in 500 mls @ 23 mls/hr 09/18/21 08:00 09/18/21 21:44 Heparin/ 0.45% Nacl-25,000 Unit/500 Ml IV 1,050 units/hr TITR ALEIDA 21 mls/hr Titration Protocol 1,150 UNITS/HR Amiodarone HCl 900 mg/ 500 mls @ 33.333 mls/hr 09/18/21 12:00 09/18/21 20:30 Dextrose IV 0.5 mg/min DIRECT ALEIDA 16.667 mls/hr Titration Protocol 1 MG/MIN Magnesium Hydroxide 30 ml 09/16/21 21:58 Magnesium Hydroxide (Mom) Oral Liqd Udc PO Q4H PRN Constipation Metoclopramide HCl 10 mg 09/16/21 21:58 Metoclopramide 10 Mg Tab PO Q6H PRN Nausea And Vomiting Metoprolol Tartrate 12.5 mg 09/18/21 10:00 09/18/21 21:50 Metoprolol Tartrate 25 Mg Tab PO 12.5 mg BID ALEIDA Administration Morphine Sulfate 2 mg 09/16/21 21:58 Morphine 2 Mg/1 Ml Inj IV Q4H PRN Pain, Moderate (4-6) Morphine Sulfate 4 mg 09/16/21 21:58 Morphine 4 Mg/1 Ml Inj IV Q4H PRN Pain , Severe (7-10) Nifedipine 60 mg 09/19/21 10:00 Nifedipine Xl 60 Mg Tab PO DAILY ALEIDA Ondansetron HCl 4 mg 09/16/21 21:58 Ondansetron 4 Mg/2 Ml Inj IV Q8H PRN Nausea And Vomiting Promethazine HCl 25 mg 09/16/21 21:58 Promethazine 25 Mg Rect Supp [place] Q6H PRN Nausea And Vomiting Sodium Chloride 10 ml 09/16/21 22:00 09/18/21 21:52 Sodium Chloride 0.9% 10 Ml Flush Syringe IV 10 ml BID ALEIDA Administration Sodium Chloride 10 ml 09/16/21 21:58 09/18/21 10:42 Sodium Chloride 0.9% 10 Ml Flush Syringe IV 10 ml PRN PRN Administration LINE FLUSH Warfarin Sodium 5 mg 09/18/21 17:00 09/18/21 17:16 Warfarin 5 Mg Tab PO 5 mg DAILY@1700 ALEIDA Administration Nutrition/Malnutrition Assess - Dietary Evaluation Nutrition/Malnutrition Findings: Nutrition Notes Start: 09/17/21 13:46 Freq: Status: Active Protocol: Document 09/17/21 13:46 LOKESH (Rec: 09/17/21 14:14 LOKESH [id number]) Nutrition Notes Need for Assessment generated from: MD Order,Education Initial or Follow up Assessment Current Diagnosis Hypertension Other Pertinent Diagnosis Slurred Speech, Possible CVA, Possible CKD, RA, GERD. Current Diet Cardiac Diet (since B 09/17), NPO (since D 09/17). Labs/Tests 09/17: BUN 33, Crea 2.2, Glu 144. Pertinent Medications 09/17: Nutritionally unremarkable. 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 Weight Status Overweight Subjective/Other Information RD consult for nutrition education. Pt still in critical condition , not a candidate for Nutrition Education at the time, will assess feasibility on F/U. Pt on Room Air, O2 saturation @ 95%, according to Physical Assessment History notes. Pt has missing teeth, according to Physical Assessment History notes. Pt's still ongoing dignosis for CVA, but symptoms are worsening; according to DESIGN MAINTENANCE ENGINEER note, NPO is recommended at the time. I stopped the diet order. Pt currently on NPO. DESIGN MAINTENANCE ENGINEER note on 09/17/21 12:06: Patient presents with an oral/ pharyngeal phase dysphagia with immediate aspiration with thins, delayed swallow reflex , poor laryngeal elevation and consistent throat clearing with nectar and pureed consistences. Recommend NPO. Informed the patient's nurse. Addendum: Cognitive function for problem solving and executive function was not assessed due to the severity of the patient's dysarthric speech. Patient demonstrates reduced labial movement with poor articulation skills. Per the patient's nurse, speech has worsened since this am. Percent of energy/protein needs met: Pt currently on NPO. Burn Absent Trauma Absent GI Symptoms None Difficulty In Swallowing Food Allergy No Skin Integrity/Comment Assessment WNL. Current % PO Other Minimum of two criteria No #1 Nutrition Diagnosis Swallowing difficulty Etiology Possible CVA. As Evidenced by Signs and Symptoms DESIGN MAINTENANCE ENGINEER note on 09/17/21 12:06: Patient presents with an oral/ pharyngeal phase dysphagia with immediate aspiration with thins, delayed swallow reflex , poor laryngeal elevation and consistent throat clearing with nectar and pureed consistences. Recommend NPO. Informed the patient's nurse. Addendum: Cognitive function for problem solving and executive function was not assessed due to the severity of the patient's dysarthric speech. Patient demonstrates reduced labial movement with poor articulation skills. Per the patient's nurse, speech has worsened since this am. Is patient on ventilator? No Is Patient Ambulatory and/or Out of Bed Yes REE-([facility]-ambulatory/OOB) [ 1540.669 [id number]] Kcal/Kg value to use for calculation 18 Approximate Energy Requirements Using 1361 kcal/Kg Calculation Used for Recommendations Kcal/kg Additional Notes Protein: 0.6-0.8 g/Kg ABW; 46- 61 g/day. Fluids: 1 ml/Kcal, or as per MD. Nutrition Intervention Change Diet Order: Stop Cardiac Diet, as per DESIGN MAINTENANCE ENGINEER recommendation. Goal #1 Adjust the dietary intervention to better serve Pt's needs and clinical conditions during LOS. Follow-Up By: 09/19/21 Additional Comments Nutrition education will be provided on F/U, if feasible. When pertinent, start monitoring swallow capabilities, food tolerance, %PO intake of meals, and BM.
--- NOTE | 2021-09-19 08:27 | Progress Note ---
Assessment and Plan 1. Acute kidney injury: Acute kidney injury superimposed on CKD. UA bland. Renal US negative. Baseline CKD. Monitor renal function. Creatinine level is improving. Avoid nephrotoxic agents. Meds dosage based on GFR. 2. FEN: Replete lytes. Monitor lytes and volume status. 3. Slurred speech: Initial CT unremarkable. CTA brain and neck is remarkable for intra cranial atherosclerotic changes in ICA and vertebral system. ASA, Lipitor and Plavix. MRI brain negative for acute changes. Echo EF 50-55%. Followed by Neuro. 4. A.fib with RVR: Followed by Cards. 5. Hypertension: Monitor BP. Subjective: Patient was seen and examined at the bedside. Examination: General appearance: well-developed, appears stated age, no distress HEENT: atraumatic, pupils reacting to light Neck: trachea midline Respiratory: ctab Heart: S1S2, irregular, no murmur Abdomen: soft, bowel sounds heard, NT Integumentary: no obvious rash Neurologic: alert, some confusion noted, able to move extremities Ext: no edema noted Subjective Date of service: 09/19/21 Principal diagnosis: slurred speech Objective - Vital Signs Vital signs: Vital Signs - 12hr 09/18/21 09/19/21 09/19/21 23:07 00:17 03:52 Temperature 98.0 F 98.1 F Pulse Rate 88 72 Respiratory 18 18 Rate Blood Pressure 165/125 177/101 Blood Pressure 150/98 [Left] O2 Sat by Pulse 97 100 100 Oximetry 09/19/21 08:18 Temperature 97.8 F Pulse Rate 77 Respiratory 18 Rate Blood Pressure 160/80 Blood Pressure [Left] O2 Sat by Pulse 100 Oximetry - Lab 09/18/21 08:55 09/19/21 05:37 Most recent lab results Calcium 8.4 mg/dL (8.4-10.2) 09/19/21 05:37 Magnesium 1.60 mg/dL (1.7-2.3) L 09/18/21 16:09 Medications & Allergies - Medications Allergies/Adverse Reactions: Allergies No Known Allergies Allergy (Unverified 09/01/16 16:22) Home Medications: Home Medications Medication Instructions Recorded Confirmed Last Taken Type NIFEdipine [Nifedipine ER] 60 mg PO DAILY #30 tab.er.24 09/01/16 07/04/21 Unknown Rx Meclizine [Antivert] 25 mg PO TID PRN #30 tablet 01/17/19 07/04/21 Unknown Rx traMADoL [Ultram 50 MG tab] 50 mg PO Q6HR PRN #20 tablet 01/17/19 07/04/21 Unknown Rx Active Medications: Generic Name Dose Route Start Last Admin Trade Name Freq PRN Reason Stop Dose Admin Acetaminophen 650 mg 09/16/21 21:58 Acetaminophen 325 Mg Tab PO Q4H PRN Pain MILD(1-3)/Fever >100.5/GUERRA Aspirin 81 mg 09/17/21 10:00 09/18/21 10:39 Aspirin 81 Mg Tab Chew PO 81 mg QDAY ALEIDA Administration Atorvastatin Calcium 40 mg 09/16/21 22:00 09/18/21 21:50 Atorvastatin 40 Mg Tab PO 40 mg QHS ALEIDA Administration Bisacodyl 10 mg 09/16/21 21:58 Bisacodyl 10 Mg Rect Supp AR QDAY PRN Constipation Clopidogrel Bisulfate 75 mg 09/17/21 10:00 09/18/21 10:38 Clopidogrel 75 Mg Tab PO 75 mg QDAY ALEIDA Administration Heparin Sodium (Porcine) 3,000 unit 09/18/21 09:00 Heparin 10,000 Units/10 Ml Vial 40 unit/kg (3000 unit) IV Q6H PRN Anti-Xa Assay < 0.1 units/ml Heparin Sodium/Sodium Chloride 25,000 unit in 500 mls @ 23 mls/hr 09/18/21 08:00 09/18/21 21:44 Heparin/ 0.45% Nacl-25,000 Unit/500 Ml IV 1,050 units/hr TITR ALEIDA 21 mls/hr Titration Protocol 1,150 UNITS/HR Amiodarone HCl 900 mg/ 500 mls @ 33.333 mls/hr 09/18/21 12:00 09/18/21 20:30 Dextrose IV 0.5 mg/min DIRECT ALEIDA 16.667 mls/hr Titration Protocol 1 MG/MIN Magnesium Hydroxide 30 ml 09/16/21 21:58 Magnesium Hydroxide (Mom) Oral Liqd Udc PO Q4H PRN Constipation Metoclopramide HCl 10 mg 09/16/21 21:58 Metoclopramide 10 Mg Tab PO Q6H PRN Nausea And Vomiting Metoprolol Tartrate 12.5 mg 09/18/21 10:00 09/18/21 21:50 Metoprolol Tartrate 25 Mg Tab PO 12.5 mg BID ALEIDA Administration Morphine Sulfate 2 mg 09/16/21 21:58 Morphine 2 Mg/1 Ml Inj IV Q4H PRN Pain, Moderate (4-6) Morphine Sulfate 4 mg 09/16/21 21:58 Morphine 4 Mg/1 Ml Inj IV Q4H PRN Pain , Severe (7-10) Nifedipine 60 mg 09/19/21 10:00 Nifedipine Xl 60 Mg Tab PO DAILY ALEIDA Ondansetron HCl 4 mg 09/16/21 21:58 Ondansetron 4 Mg/2 Ml Inj IV Q8H PRN Nausea And Vomiting Promethazine HCl 25 mg 09/16/21 21:58 Promethazine 25 Mg Rect Supp AR Q6H PRN Nausea And Vomiting Sodium Chloride 10 ml 09/16/21 22:00 09/18/21 21:52 Sodium Chloride 0.9% 10 Ml Flush Syringe IV 10 ml BID ALEIDA Administration Sodium Chloride 10 ml 09/16/21 21:58 09/18/21 10:42 Sodium Chloride 0.9% 10 Ml Flush Syringe IV 10 ml PRN PRN Administration LINE FLUSH Warfarin Sodium 5 mg 09/18/21 17:00 09/18/21 17:16 Warfarin 5 Mg Tab PO 5 mg DAILY@1700 ALEIDA Administration
[2021-09-19] MEDS: CLOPIDOGREL 75 MG TAB PO SCH (10:35)
[2021-09-19] MEDS: NIFEdipine XL 60 MG TAB PO SCH (10:35)
--- NOTE | 2021-09-19 11:25 | Progress Note ---
Assessment and Plan Patient is a 81-year-old female with past medical history of hypertension, GERD, and history of A. fib. Who is brought to the ED on 09/16/2021 for neurodeficits. CVA-neurology following A. fib CKD vs Renal insufficientcy- Nephrology following Hypertension Limited echo 09/16/2021-EF 50 to 55%. Moderate concentric LVH. Left atrium is moderately dilated. Right atrium is moderately dilated. Bubble study does not demonstrate PFO no pericardial effusion. Plan: EKG shows A. fib rate 103 with LVH. No acute ischemic changes EKG does not appear significantly different from prior EKG on 07/05/2021. At that time patient had A. fib rate 95 with LVH Due to patient's history of A. fib unclear if patient was on anticoagulation previously. Asked patient's family if patient was previously on anticoagulations however family was not sure of patient's past medical history and/or medications Patient has subtherapeutic INR. Due to A. fib recommend anticoagulation if okay with neurology. Patient currently on heparin drip and being bridged to Coumadin Patient currently on Lipitor, Plavix and metoprolol, nifedipine Patient remains in A. fib however rate controlled we will stop amiodarone drip and increase to metoprolol 25 mg p.o. twice daily Patient conjunction with Dr. Santiago who agrees with this plan of care - Patient Problems (1) Ischemic stroke Current Visit: Yes Status: Acute (2) Slurred speech Current Visit: Yes Status: Acute (3) Atrial fibrillation Current Visit: No Status: Acute (4) Elevated brain natriuretic peptide (BNP) level Current Visit: No Status: Acute (5) Renal insufficiency Current Visit: No Status: Acute (6) Hypertension Current Visit: No Status: Chronic Qualifiers: Hypertension type: primary hypertension Qualified Code(s): I10 - Essential (primary) hypertension Subjective Date of service: 09/19/21 Principal diagnosis: slurred speech Interval history: Patient in bed in no acute distress Patient remains in A. fib 80s to 90s on monitor with no events Objective Vital Signs Temp Pulse Resp BP BP Pulse Ox 09/19/21 08:18 97.8 F 77 18 160/80 100 09/19/21 03:52 98.1 F 72 18 177/101 150/98 100 09/19/21 00:17 98.0 F 88 18 165/125 100 04/14/22 23:07 97 09/18/21 20:11 98.9 F 19 153/96 09/18/21 20:00 66 09/18/21 16:38 98.4 F 66 18 165/93 92 09/18/21 13:30 78 18 97 09/18/21 13:27 89 97 09/18/21 12:00 97 H 09/18/21 11:27 98 - Physical Examination HEENT: Positive: Normocephaly Neck: Positive: trachea midline Cardiac: Positive: irregularly irregular Lungs: Positive: Normal Breath Sounds Neuro: Positive: Other (AMS) Abdomen: Positive: Soft Skin: Negative: Rash, Suspicious Lesions, Ulceration Extremities: Present: upper extr. pulses. Absent: edema - Labs and Meds Coagulation 09/19/21 Range/Units 05:37 PT 15.0 H (12.2-14.9) Sec. INR 1.06 (0.87-1.13) Comprehensive Metabolic Panel 09/19/21 Range/Units 05:37 Sodium 142 (137-145) mmol/L Potassium 3.5 L (3.6-5.0) mmol/L Chloride 103.6 (98-107) mmol/L Carbon Dioxide 26 (22-30) mmol/L BUN 31 H (7-17) mg/dL Creatinine 1.9 H (0.6-1.2) mg/dL Glucose 106 H (65-100) mg/dL Calcium 8.4 (8.4-10.2) mg/dL - Imaging and Cardiology Echo: report reviewed - Telemetry EKG Rhythm: Atrial Fibrillation - EKG Supraventricular dysrhythmia: atrial fibrillation
--- NOTE | 2021-09-19 11:51 | Progress Note ---
Assessment and Plan Assessment and Plan 81-year-old female with significant past medical history of hypertension, GERD seen in the emergency room today with a complaint of slurred speech. Symptoms were said to have started overnight when family noticed that patient had been drooling and her speech is not slurred. Patient denies any headache or dizziness, denies any diaphoresis. Denies any blurry vision. No nausea vomiting and no abdominal pain. Denies any fever or chills. - Patient Problems # Slurred speech noted by patient yesterday according to her lasted one hour then resolved -Initial CT is unremarkable -Initial NIH#1 -CTA brain and neck is remarkable for intra cranial atherosclerotic changes in ICA and vertebral system -she is started on ASA and Lipitor as well as Plavix -MRI brain is remarkable for remote left cerebellar infarct -Echo is with EF#50-55% with dilated both atria,No PFO -LDL,A1C are pending -ST /PT evaluate # AF -evaluated by cardiology -need to start on AC - see no neurological contraindication for AC # Renal insufficiency -Appears chronic. -Consult placed to nephrology for evaluation and recommendations. -33/2.2 # Hypertension - allow for permissive HTN <200/100 for 24 hours -then gradual control of BP <150/80 # HLP -Lipitor 40 mg -LDL is #70 # DVT prophylaxis -Patient placed on sequential compression device as recommended by neurology. # Full code status -Patient is full code. will follow as needed Subjective Date of service: 09/19/21 Principal diagnosis: slurred speech Interval history: pt. is more alert interactive speech improved , no clear weakness is noted but slight give away right side !! MRI is remarkable for remote left cerbellar infarct, echo 50-55% with LVH and bilateral dilated atria with no PFO is noted LDL is #70 EKG is remarkable for AF Objective - Vital Sign Vital Signs - 12hr 09/19/21 09/19/21 09/19/21 00:17 03:52 08:18 Temperature 98.0 F 98.1 F 97.8 F Pulse Rate 88 72 77 Respiratory 18 18 18 Rate Blood Pressure 165/125 177/101 160/80 Blood Pressure 150/98 [Left] O2 Sat by Pulse 100 100 100 Oximetry - General Apperance Constitutional: comfortable - EENT EENT: PERRL, mucous membranes moist - Respiratory Respiratory: lungs clear, rhonchi - Cardiovascular Cardiovascular: other (irregular) Extremities: no peripheral edema bilat - Gastrointestinal Gastrointestinal: normoactive bowel sounds - Integumentary Integumentary: normal - Neurologic Cranial nerve examination: PERRL, EOMI, intact Speech examination: intact Detailed motor examination: grossly full strength in - Laboratory Findings CBC and BMP: 09/18/21 08:55 09/19/21 05:37 Abnormal Lab Findings: Abnormal Labs 09/16/21 09/16/21 09/17/21 18:56 21:48 05:23 [place] % (Auto) 11.3 H PT Heparin Anti-Xa Level Potassium BUN 33 H 33 H Creatinine 2.4 H 2.2 H Glucose 144 H Magnesium 09/18/21 09/18/21 09/18/21 07:42 16:09 20:30 [place] % (Auto) PT Heparin Anti-Xa Level 0.71 H Potassium 3.5 L BUN 33 H Creatinine 2.2 H Glucose 101 H Magnesium 1.60 L 09/19/21 09/19/21 05:37 05:37 [place] % (Auto) PT 15.0 H Heparin Anti-Xa Level 1.06 H Potassium 3.5 L BUN 31 H Creatinine 1.9 H Glucose 106 H Magnesium
[2021-09-19] MEDS ORDERED: MAGNESIUM SULFATE 2 GM/50 ML BAG IV ONE (13:06)
[2021-09-19] MEDS: METOPROLOL TARTRATE 25 MG TAB PO SCH ×2 (13:33→21:20)
[2021-09-19] MEDS: HEPARIN/ 0.45% NACL DRIP 25,000 UNIT/500 ML BAG IV SCH (13:42)
[2021-09-19] MEDS ORDERED: WARFARIN 5 MG TAB PO NR (17:00)
[2021-09-19 20:15] LABS: Creatinine,Urine 296.5 mg/dL (0.1-20.0); Protein/Creatinine Ratio,Urine 0.13
[2021-09-19 20:16] LABS: Bacteria,Urine 1+ /HPF (Negative); Bilirubin,Urine NEG (Negative); Blood,Urine NEG (Negative); Color,Urine Yellow (Yellow); Hyaline Casts,Urine 9 /LPF; Mucus,Urine FEW /HPF; Protein,Urine <15 mg/dL mg/dL (Negative)
[2021-09-20 07:39] VITALS: BP 153/77
[2021-09-20] MEDS: ASPIRIN 81 MG TAB CHEW PO SCH (07:55)
[2021-09-20] MEDS: METOPROLOL TARTRATE 25 MG TAB PO SCH ×2 (07:56→09:10)
--- NOTE | 2021-09-20 08:14 | Progress Note ---
Hospitalist Physical - Constitutional Vitals: Temp Pulse Resp BP Pulse Ox 98.3 F 82 17 153/77 100 09/20/21 07:38 09/20/21 07:38 09/20/21 07:38 09/20/21 07:38 09/20/21 07:38 General appearance: Present: no acute distress HEART Score - HEART Score Troponin: Troponin T < 0.010 ng/mL (0.00-0.029) 09/16/21 18:56 Results - Labs CBC & Chem 7: 09/18/21 08:55 09/19/21 05:37 Labs: Laboratory Last Values WBC 5.3 K/mm3 (4.5-11.0) 09/16/21 18:56 RBC 3.84 M/mm3 (3.65-5.03) 09/16/21 18:56 Hgb 11.1 gm/dl (10.1-14.3) 09/18/21 08:55 Hct 35.3 % (30.3-42.9) 09/18/21 08:55 MCV 88 fl (79-97) 09/16/21 18:56 MCH 28 pg (28-32) 09/16/21 18:56 MCHC 32 % (30-34) 09/16/21 18:56 RDW 14.3 % (13.2-15.2) 09/16/21 18:56 Plt Count 235 K/mm3 (140-440) 09/18/21 08:55 Lymph % (Auto) 24.6 % (13.4-35.0) 09/16/21 18:56 [place] % (Auto) 11.3 % (0.0-7.3) H 09/16/21 18:56 Eos % (Auto) 1.2 % (0.0-4.3) 09/16/21 18:56 Baso % (Auto) 0.8 % (0.0-1.8) 09/16/21 18:56 Lymph # (Auto) 1.3 K/mm3 (1.2-5.4) 09/16/21 18:56 [place] # (Auto) 0.6 K/mm3 (0.0-0.8) 09/16/21 18:56 Eos # (Auto) 0.1 K/mm3 (0.0-0.4) 09/16/21 18:56 Baso # (Auto) 0.0 K/mm3 (0.0-0.1) 09/16/21 18:56 Seg Neutrophils % 62.1 % (40.0-70.0) 09/16/21 18:56 Seg Neutrophils # 3.3 K/mm3 (1.8-7.7) 09/16/21 18:56 PT 15.0 Sec. (12.2-14.9) H 09/19/21 05:37 INR 1.06 (0.87-1.13) 09/19/21 05:37 APTT 25.8 Sec. (24.2-36.6) 09/18/21 10:32 Thrombin Time 18.5 Sec. (15.1-19.6) 09/16/21 18:56 Heparin Anti-Xa Level 0.64 U.I./ml (0.3-0.7) 09/19/21 15:55 Sodium 142 mmol/L (137-145) 09/19/21 05:37 Potassium 3.5 mmol/L (3.6-5.0) L 09/19/21 05:37 Chloride 103.6 mmol/L (98-107) 09/19/21 05:37 Carbon Dioxide 26 mmol/L (22-30) 09/19/21 05:37 Anion Gap 16 mmol/L 09/19/21 05:37 BUN 31 mg/dL (7-17) H 09/19/21 05:37 Creatinine 1.9 mg/dL (0.6-1.2) H 09/19/21 05:37 Estimated GFR 31 ml/min 09/19/21 05:37 BUN/Creatinine Ratio 16 % 09/19/21 05:37 Glucose 106 mg/dL (65-100) H 09/19/21 05:37 POC Glucose 105 mg/dL (70-105) 09/18/21 03:17 Calcium 8.4 mg/dL (8.4-10.2) 09/19/21 05:37 Magnesium 1.60 mg/dL (1.7-2.3) L 09/18/21 16:09 Total Creatine Kinase 124 units/L (30-135) 09/16/21 18:56 CK-MB (CK-2) 1.5 ng/mL (0.0-4.0) 09/16/21 18:56 CK-MB (CK-2) Rel Index 1.2 (0-4) 09/16/21 18:56 Troponin T < 0.010 ng/mL (0.00-0.029) 09/16/21 18:56 Triglycerides 77 mg/dL (2-149) 09/18/21 07:42 Cholesterol 135 mg/dL (50-199) 09/18/21 07:42 LDL Cholesterol Direct 70 mg/dL (50-130) 09/18/21 07:42 HDL Cholesterol 47 mg/dL (40-59) 09/18/21 07:42 Cholesterol/HDL Ratio 2.87 % 09/18/21 07:42 Urine Color Yellow (Yellow) 09/19/21 19:24 Urine Turbidity Slightly-cloudy (Clear) 09/19/21 19:24 Urine pH 5.0 (5.0-7.0) 09/19/21 19:24 Ur Specific [place] 1.023 (1.003-1.030) 09/19/21 19:24 Urine Protein <15 mg/dl mg/dL (Negative) 09/19/21 19:24 Urine Glucose (UA) Neg mg/dL (Negative) 09/19/21 19:24 Urine Ketones Neg mg/dL (Negative) 09/19/21 19:24 Urine Blood Neg (Negative) 09/19/21 19:24 Urine Nitrite Neg (Negative) 09/19/21 19:24 Urine Bilirubin Neg (Negative) 09/19/21 19:24 Urine Urobilinogen 2.0 mg/dL (<2.0) 09/19/21 19:24 Ur Leukocyte Esterase Neg (Negative) 09/19/21 19:24 Urine WBC (Auto) 2.0 /HPF (0.0-6.0) 09/19/21 19:24 Urine RBC (Auto) 12.0 /HPF (0.0-6.0) 09/19/21 19:24 U Epithel Cells (Auto) 32.0 /HPF (0-13.0) H 09/19/21 19:24 Urine Bacteria (Auto) 1+ /HPF (Negative) 09/19/21 19:24 Hyaline Casts 9 /LPF 09/19/21 19:24 Urine Mucus Few /HPF 09/19/21 19:24 Urine Creatinine 296.5 mg/dL (0.1-20.0) H 09/19/21 19:24 Protein/Creatinin Ratio 0.13 09/19/21 19:24 Urine Sodium 55 mmol/L 09/19/21 19:24 Urine Total Protein 40 mg/dL (5-11.8) H 09/19/21 19:24 Nelson/IV: Voiding Method Toilet Active Medications - Current Medications Current Medications: Generic Name Dose Route Start Last Admin Trade Name Freq PRN Reason Stop Dose Admin Acetaminophen 650 mg 09/16/21 21:58 09/19/21 17:14 Acetaminophen 325 Mg Tab PO 650 mg Q4H PRN Administration Pain MILD(1-3)/Fever >100.5/GUERRA Atorvastatin Calcium 40 mg 09/16/21 22:00 09/19/21 21:20 Atorvastatin 40 Mg Tab PO 40 mg QHS ALEIDA Administration Bisacodyl 10 mg 09/16/21 21:58 Bisacodyl 10 Mg Rect Supp IA QDAY PRN Constipation Clopidogrel Bisulfate 75 mg 09/17/21 10:00 09/19/21 10:35 Clopidogrel 75 Mg Tab PO 75 mg QDAY ALEIDA Administration Heparin Sodium (Porcine) 3,000 unit 09/18/21 09:00 Heparin 10,000 Units/10 Ml Vial 40 unit/kg (3000 unit) IV Q6H PRN Anti-Xa Assay < 0.1 units/ml Heparin Sodium/Sodium Chloride 25,000 unit in 500 mls @ 23 mls/hr 09/18/21 08:00 09/19/21 10:40 Heparin/ 0.45% Nacl-25,000 Unit/500 Ml IV Infused TITR [facility] Titration Protocol 1,150 UNITS/HR Magnesium Hydroxide 30 ml 09/16/21 21:58 Magnesium Hydroxide (Mom) Oral Liqd Udc PO Q4H PRN Constipation Metoclopramide HCl 10 mg 09/16/21 21:58 Metoclopramide 10 Mg Tab PO Q6H PRN Nausea And Vomiting Metoprolol Tartrate 25 mg 09/19/21 11:00 09/19/21 21:20 Metoprolol Tartrate 25 Mg Tab PO 25 mg BID ALEIDA Administration Morphine Sulfate 2 mg 09/16/21 21:58 Morphine 2 Mg/1 Ml Inj IV Q4H PRN Pain, Moderate (4-6) Morphine Sulfate 4 mg 09/16/21 21:58 Morphine 4 Mg/1 Ml Inj IV Q4H PRN Pain , Severe (7-10) Nifedipine 60 mg 09/19/21 10:00 09/19/21 10:35 Nifedipine Xl 60 Mg Tab PO 60 mg DAILY LAEIDA Administration Ondansetron HCl 4 mg 09/16/21 21:58 Ondansetron 4 Mg/2 Ml Inj IV Q8H PRN Nausea And Vomiting Promethazine HCl 25 mg 09/16/21 21:58 Promethazine 25 Mg Rect Supp IA Q6H PRN Nausea And Vomiting Sodium Chloride 10 ml 09/16/21 22:00 09/19/21 21:21 Sodium Chloride 0.9% 10 Ml Flush Syringe IV 10 ml BID ALEIDA Administration Sodium Chloride 10 ml 09/16/21 21:58 09/18/21 10:42 Sodium Chloride 0.9% 10 Ml Flush Syringe IV 10 ml PRN PRN Administration LINE FLUSH Warfarin Sodium 5 mg 09/19/21 17:00 09/19/21 17:14 Warfarin 5 Mg Tab PO 09/20/21 16:59 5 mg ONCE@1700 NR Administration Nutrition/Malnutrition Assess - Dietary Evaluation Nutrition/Malnutrition Findings: Nutrition Notes Start: 09/17/21 13:46 Freq: Status: Active Protocol: Document 09/19/21 13:04 DRE (Rec: 09/19/21 13:10 DRE [id number]) Nutrition Notes Initial or Follow up Reassessment Current Diagnosis Hypertension,Hyperlipidemia Other Pertinent Diagnosis (L) cerebellar infarct, afib, renal insufficiency Current Diet Low Na mech soft with nectar- thick liquids Labs/Tests K 3.5 Cr 1.9 BUN 31 Pertinent Medications Coumadin Height 5 ft 3 in Weight 75.6 kg [place] Body Weight (kg) 52.27 BMI 29.5 Weight Status Overweight Subjective/Other Information Pt screened for coumadin use. Pt says she has been taking coumadin "a while" and is familiar with potential DNI while taking this medication. Unable to assess PO intakes at this time; she continues to work with [employer]. Burn Absent Trauma Absent Difficulty In Swallowing Minimum of two criteria No #1 Nutrition Diagnosis Swallowing difficulty As Evidenced by Signs and Symptoms pt requires thickened liquids Diagnosis Progress(for reassessment Continues documentation) Is patient on ventilator? No Is Patient Ambulatory and/or Out of Bed Yes REE-([facility] [place] [facility]-ambulatory/OOB) [ 1540.669 [id number]] Calculation Used for Recommendations [facility] Additional Notes Pro needs 0.8-1.2g/k-91g/ day Fluid needs 1ml/kcal Nutrition Intervention Change Diet Order: Continue diet as tolerated Goal #1 PO tolerance Goal #2 PO intakes to meet at least 75 % energy and pro needs Follow-Up By: 09/24/21 Additional Comments F/U: intakes, [employer] evaluation/ thickened liquids
[2021-09-20] MEDS: CLOPIDOGREL 75 MG TAB PO SCH (09:10)
[2021-09-20] MEDS: NIFEdipine XL 60 MG TAB PO SCH (09:10)
[2021-09-20 10:15] LABS: Hematocrit 33.5 % (30.3-42.9)
[2021-09-20 10:25] LABS: INR 1.05 (0.87-1.13)
--- NOTE | 2021-09-20 10:25 | Progress Note ---
Assessment and Plan Patient is a 81-year-old female with past medical history of hypertension, GERD, and history of A. fib. Who is brought to the ED on 09/16/2021 for neurodeficits. CVA-neurology following A. fib CKD vs Renal insufficientcy- Nephrology following Hypertension Limited echo 09/16/2021-EF 50 to 55%. Moderate concentric LVH. Left atrium is moderately dilated. Right atrium is moderately dilated. Bubble study does not demonstrate PFO no pericardial effusion. rec: In view of subtherapeutic INR with recurrent stroke discussed with hospitalist by changing to Eliquis 2.5 mg twice a day as patient is above the age of 79 and has renal sufficiency. Continue AV isaiah blocking agent. May be discharged from a cardiovascular point of view - Patient Problems (1) Ischemic stroke Current Visit: Yes Status: Acute (2) Atrial fibrillation Current Visit: No Status: Acute (3) Renal insufficiency Current Visit: No Status: Acute (4) Hypertension Current Visit: No Status: Chronic Qualifiers: Hypertension type: primary hypertension Qualified Code(s): I10 - Essential (primary) hypertension Subjective Date of service: 09/20/21 Principal diagnosis: slurred speech Interval history: no palpations no chest pain Objective Vital Signs Temp Pulse Resp BP Pulse Ox 09/20/21 07:38 98.3 F 82 17 153/77 100 09/20/21 04:49 99.0 F 98 H 18 162/95 98 09/20/21 02:23 99 09/20/21 00:56 97.9 F 77 18 141/79 99 09/19/21 21:20 98 H 156/94 09/19/21 20:54 98.1 F 95 H 18 156/94 98 09/19/21 14:58 97.5 F L 85 17 130/82 96 09/19/21 14:00 77 - Physical Examination General: Appears Well HEENT: Positive: Normocephaly Neck: Positive: trachea midline Cardiac: Positive: Irregularly Regular Lungs: Positive: clear to auscultation Neuro: Positive: Other (AMS) Abdomen: Positive: Soft Skin: Negative: Rash, Suspicious Lesions, Ulceration Extremities: Present: upper extr. pulses. Absent: edema - Labs and Meds CBC 09/20/21 Range/Units 10:11 Hgb 11.0 (10.1-14.3) gm/dl Hct 33.5 (30.3-42.9) % Plt Count 224 (140-440) K/mm3 - Imaging and Cardiology Echo: report reviewed - Telemetry EKG Rhythm: Atrial Fibrillation (in 80's)
[2021-09-20 10:39] LABS: Calcium 9.4 mg/dL (8.4-10.2)
[2021-09-20] MEDS ORDERED: APIXABAN 2.5 MG TAB PO SCH (11:00)
--- NOTE | 2021-09-20 11:07 | Progress Note ---
Assessment and Plan Assessment and Plan 81-year-old female with significant past medical history of hypertension, GERD seen in the emergency room today with a complaint of slurred speech. Symptoms were said to have started overnight when family noticed that patient had been drooling and her speech is not slurred. Patient denies any headache or dizziness, denies any diaphoresis. Denies any blurry vision. No nausea vomiting and no abdominal pain. Denies any fever or chills. 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 -Consult placed to nephrology for evaluation and recommendations. -33/2.2 # Hypertension - allow for permissive HTN <200/100 for 24 hours -then gradual control of BP <150/80 # HLP -Lipitor 40 mg -LDL is #70 # DVT prophylaxis -Patient placed on sequential compression device as recommended by neurology. # Full code status -Patient is full code. will follow as needed Subjective Date of service: 09/20/21 Principal diagnosis: slurred speech Interval history: pt. is more alert interactive speech improved , no clear weakness is noted but slight give away right side !! MRI is remarkable for remote left cerbellar infarct, echo 50-55% with LVH and bilateral dilated atria with no PFO is noted LDL is #70 EKG is remarkable for AF-- started on coumadin --IV heparin still on Plavix and lipitor Objective - Vital Sign Vital Signs - 12hr 09/20/21 09/20/21 09/20/21 00:56 02:23 04:49 Temperature 97.9 F 99.0 F Pulse Rate 77 98 H Respiratory 18 18 Rate Blood Pressure 141/79 162/95 O2 Sat by Pulse 99 99 98 Oximetry 09/20/21 07:38 Temperature 98.3 F Pulse Rate 82 Respiratory 17 Rate Blood Pressure 153/77 O2 Sat by Pulse 100 Oximetry - General Apperance Constitutional: comfortable - EENT EENT: PERRL, mucous membranes moist - Respiratory Respiratory: lungs clear, rhonchi - Cardiovascular Cardiovascular: other (irregular) Extremities: no peripheral edema bilat, no clubbing, cyanosis - Gastrointestinal Gastrointestinal: normoactive bowel sounds - Integumentary Integumentary: normal - Neurologic Cranial nerve examination: PERRL, EOMI, intact Speech examination: intact Detailed motor examination: grossly full strength in - Laboratory Findings CBC and BMP: 09/20/21 10:11 09/20/21 10:11 Abnormal Lab Findings: Abnormal Labs 09/16/21 09/16/21 09/17/21 18:56 21:48 05:23 Coal % (Auto) 11.3 H PT Heparin Anti-Xa Level Potassium BUN 33 H 33 H Creatinine 2.4 H 2.2 H Glucose 144 H Magnesium U Epithel Cells (Auto) Urine Creatinine Urine Total Protein 09/18/21 09/18/21 09/18/21 07:42 16:09 20:30 Coal % (Auto) PT Heparin Anti-Xa Level 0.71 H Potassium 3.5 L BUN 33 H Creatinine 2.2 H Glucose 101 H Magnesium 1.60 L U Epithel Cells (Auto) Urine Creatinine Urine Total Protein 09/19/21 09/19/21 09/19/21 05:37 05:37 19:24 Coal % (Auto) PT 15.0 H Heparin Anti-Xa Level 1.06 H Potassium 3.5 L BUN 31 H Creatinine 1.9 H Glucose 106 H Magnesium U Epithel Cells (Auto) 32.0 H Urine Creatinine Urine Total Protein 09/19/21 09/20/21 09/20/21 19:24 10:11 10:11 Coal % (Auto) PT Heparin Anti-Xa Level 1.01 H Potassium 3.3 L BUN 25 H Creatinine 2.0 H Glucose 111 H Magnesium U Epithel Cells (Auto) Urine Creatinine 296.5 H Urine Total Protein 40 H
[2021-09-20] MEDS ORDERED: METOCLOPRAMIDE 10 MG TAB PO PRN (12:00)
[2021-09-20] MEDS ORDERED: POTASSIUM CHLORIDE ER 20 MEQ TAB PO ONE (12:37)
--- NOTE | 2021-09-20 12:38 | Progress Note ---
Assessment and Plan 1. Acute kidney injury: Acute kidney injury superimposed on CKD. UA bland. Renal US negative. Baseline CKD. Monitor renal function. Creatinine leveled off. Avoid nephrotoxic agents. Meds dosage based on GFR. 2. FEN: Replete lytes. Monitor lytes and volume status. 3. Slurred speech: Initial CT unremarkable. CTA brain and neck is remarkable for intra cranial atherosclerotic changes in ICA and vertebral system. ASA, Lipitor and Plavix. MRI brain negative for acute changes. Echo EF 50-55%. Followed by Neuro. 4. A.fib with RVR: Followed by Cards. 5. Hypertension: Monitor BP. F/u in 1-2 weeks. Subjective: Patient was seen and examined at the bedside. at the bedside. Examination: General appearance: well-developed, appears stated age, no distress HEENT: atraumatic, pupils reacting to light Neck: trachea midline Respiratory: ctab Heart: S1S2, irregular, no murmur Abdomen: soft, bowel sounds heard, NT Integumentary: no obvious rash Neurologic: alert, some confusion noted, able to move extremities Ext: no edema noted Subjective Date of service: 09/20/21 Principal diagnosis: slurred speech Objective - Vital Signs Vital signs: Vital Signs - 12hr 09/20/21 09/20/21 09/20/21 00:56 02:23 04:49 Temperature 97.9 F 99.0 F Pulse Rate 77 98 H Respiratory 18 18 Rate Blood Pressure 141/79 162/95 O2 Sat by Pulse 99 99 98 Oximetry 09/20/21 07:38 Temperature 98.3 F Pulse Rate 82 Respiratory 17 Rate Blood Pressure 153/77 O2 Sat by Pulse 100 Oximetry - Lab 09/20/21 10:11 09/20/21 10:11 Most recent lab results Calcium 9.4 mg/dL (8.4-10.2) 09/20/21 10:11 Magnesium 1.60 mg/dL (1.7-2.3) L 09/18/21 16:09 Urine Creatinine 296.5 mg/dL (0.1-20.0) H 09/19/21 19:24 Urine Sodium 55 mmol/L 09/19/21 19:24 Urine Total Protein 40 mg/dL (5-11.8) H 09/19/21 19:24 Medications & Allergies - Medications Allergies/Adverse Reactions: Allergies No Known Allergies Allergy (Unverified 09/01/16 16:22) Home Medications: Home Medications Medication Instructions Recorded Confirmed Last Taken Type Meclizine [Antivert] 25 mg PO TID PRN #30 tablet 01/17/19 07/04/21 Unknown Rx traMADoL [Ultram 50 MG tab] 50 mg PO Q6HR PRN #20 tablet 01/17/19 07/04/21 Unknown Rx Apixaban [Eliquis] 2.5 mg PO Q12HR 30 Days #60 tablet 09/20/21 Unknown Rx AtorvaSTATin [Lipitor] 40 mg PO QHS 30 Days #30 tablet 09/20/21 Unknown Rx Metoprolol [Lopressor TAB] 25 mg PO BID 30 Days #60 tablet 09/20/21 Unknown Rx NIFEdipine XL [Procardia Xl] 60 mg PO DAILY 30 Days #30 tablet 09/20/21 Unknown Rx Active Medications: Generic Name Dose Route Start Last Admin Trade Name Freq PRN Reason Stop Dose Admin Acetaminophen 650 mg 09/16/21 21:58 09/19/21 17:14 Acetaminophen 325 Mg Tab PO 650 mg Q4H PRN Administration Pain MILD(1-3)/Fever >100.5/GUERRA Apixaban 2.5 mg 09/20/21 11:00 09/20/21 11:59 Apixaban 2.5 Mg Tab PO 2.5 mg Q12HR ALEIDA Administration Protocol Atorvastatin Calcium 40 mg 09/16/21 22:00 09/19/21 21:20 Atorvastatin 40 Mg Tab PO 40 mg QHS ALEIDA Administration Bisacodyl 10 mg 09/16/21 21:58 Bisacodyl 10 Mg Rect Supp NH QDAY PRN Constipation Clopidogrel Bisulfate 75 mg 09/17/21 10:00 09/20/21 09:10 Clopidogrel 75 Mg Tab PO 75 mg QDAY ALEIDA Administration Magnesium Hydroxide 30 ml 09/16/21 21:58 Magnesium Hydroxide (Mom) Oral Liqd Udc PO Q4H PRN Constipation Metoclopramide HCl 5 mg 09/20/21 12:00 Metoclopramide 10 Mg Tab PO Q6H PRN Nausea And Vomiting Metoprolol Tartrate 25 mg 09/19/21 11:00 09/20/21 09:10 Metoprolol Tartrate 25 Mg Tab PO 25 mg BID ALEIDA Administration Morphine Sulfate 2 mg 09/16/21 21:58 Morphine 2 Mg/1 Ml Inj IV Q4H PRN Pain, Moderate (4-6) Morphine Sulfate 4 mg 09/16/21 21:58 Morphine 4 Mg/1 Ml Inj IV Q4H PRN Pain , Severe (7-10) Nifedipine 60 mg 09/19/21 10:00 09/20/21 09:10 Nifedipine Xl 60 Mg Tab PO 60 mg DAILY ALEIDA Administration Ondansetron HCl 4 mg 09/16/21 21:58 Ondansetron 4 Mg/2 Ml Inj IV Q8H PRN Nausea And Vomiting Potassium Chloride 40 meq 09/20/21 12:37 Potassium Chloride Er 20 Meq Tab PO 09/20/21 12:38 ONCE ONE Promethazine HCl 25 mg 09/16/21 21:58 Promethazine 25 Mg Rect Supp NH Q6H PRN Nausea And Vomiting Sodium Chloride 10 ml 09/16/21 22:00 09/20/21 09:10 Sodium Chloride 0.9% 10 Ml Flush Syringe IV 10 ml BID ALEIDA Administration Sodium Chloride 10 ml 09/16/21 21:58 09/18/21 10:42 Sodium Chloride 0.9% 10 Ml Flush Syringe IV 10 ml PRN PRN Administration LINE FLUSH
--- NOTE | 2021-09-20 12:47 | Discharge Summary ---
Providers - Providers Date of Admission: 09/16/21 21:58 Date of discharge: 09/20/21 Attending physician: DANIEL SAWYER MD 09/16/21 18:30 Telemedicine [[facility] Consult Order] [CONS] ONCE Comment: Consulting Provider: Reason For Exam: stroke like symptoms 09/16/21 21:58 Consult to Dietitian/Nutrition [CONS] Routine Physician Instructions: Reason For Exam: Reason for Consult: Nutrition Recommendations Reason for Consult: Diet education Consult to Physician [CONS] Routine Comment: Consulting Provider: ANN MARIE CURRY Physician Instructions: Reason For Exam: Slurred Speech- ?[facility] Occupational Therapy Evaluate and Treat [CONS] Routine Comment: Reason For Exam: Neuro deficits Physical Therapy Evaluation and Treat [CONS] Routine Comment: Reason For Exam: Neuro deficits 09/16/21 22:02 Speech Therapy Evaluation and Treat [CONS] Routine Reason For Exam: swallow eval 09/17/21 07:27 Consult to Physician [CONS] Routine Comment: Consulting Provider: JOHN LINDA Physician Instructions: Reason For Exam: Renal insufficiency 09/17/21 10:56 Midline [Consult to PICC Line RN] [CONS] Routine Reason For Exam: IV access Type Line:: Midline 09/18/21 07:45 Consult to Physician [CONS] Routine Comment: Consulting Provider: GLADIS HARMON Physician Instructions: Reason For Exam: atrial fibrillation Hospitalization Condition: Stable Disposition: 30 STILL A PATIENT Exam - Constitutional Vitals: Temp Pulse Resp BP Pulse Ox 98.3 F 82 17 153/77 100 09/20/21 07:38 09/20/21 07:38 09/20/21 07:38 09/20/21 07:38 09/20/21 07:38 Plan Follow up with: [facility] [Other] - 3-5 Days Prescriptions: AtorvaSTATin [Lipitor] 40 mg PO QHS 30 Days #30 tablet Apixaban [Eliquis] 2.5 mg PO Q12HR 30 Days #60 tablet Metoprolol [Lopressor TAB] 25 mg PO BID 30 Days #60 tablet NIFEdipine XL [Procardia Xl] 60 mg PO DAILY 30 Days #30 tablet
== END 2021-09-20 15:15 | disposition home health service (06) | DRG 65 ==
LOC: ED 18:16 → 4A 21:58
PROVIDERS: ADMIT Internal Medicine Geriatric Medicine; ATTEND Student in an Organized Health Care Education/Training Program
PROC: 05HA33Z Insertion of Infusion Device into Left Brachial Vein, Percutaneous Approach (ICD-10-PCS; principal; 2021-09-17)
DX: I63.9 Cerebral infarction, unspecified (principal); N17.9 Acute kidney failure, unspecified; R47.81 Slurred speech; N18.9 Chronic kidney disease, unspecified; I48.91 Unspecified atrial fibrillation; K21.9 Gastro-esophageal reflux disease without esophagitis; Z90.49 Acquired absence of other specified parts of digestive tract; M19.90 Unspecified osteoarthritis, unspecified site; E78.5 Hyperlipidemia, unspecified; I12.9 Hypertensive chronic kidney disease with stage 1 through stage 4 chronic kidney disease, or unspecified chronic kidney disease
CPT/HCPCS: 36415; 70450; 70496; 70498; 70551; 76770; 80048; 80061; 81001; 82550; 82553; 82570; 82962; 83735; 84156; 84300; 84484; 85014; 85018; 85025; 85049; 85520; 85610; 85670; 85730; 93005; 93308; 93321; 93325; 93880; 99292; G0378; J3490; J7060; Q0162; J0282; J0360; J1100; J1200; J1644; J3475; J7030; Q9967